=== PATIENT | male | born 1965 | race Caucasian/White ===

== ENCOUNTER → 2017-03-19 | Outpatient (CLI) | payer MEDICAID ==
[~2017-03-19] MED LIST: CHANTIX STARTING1 MG PO; CITALOPRAM10 M1 PO; FLONASE 50 MCG16 GM; KEFLEX 500MG.500 MG PO; METFORMIN 500M500 M1 PO; METOPROLOL SUCC50 M4 PO; MONTELUKAST SOD10 MG PO; NOVOLIN 70/30 710 ML SC; OMEPRAZOLE40 MG PO; PROTONIX 40MG T40 MG PO; SEPTRA DS 800 M1 TAB PO; SUBOXONE1 FI1 SL; TORADOL10 MG PO
--- NOTE | 2017-03-20 12:24 | RADIOLOGY REPORT PS360 ---
PROCEDURE: 2-D M-mode and color Doppler study INDICATIONS FOR THE TEST: Chest pain+ COPD+ Heart Murmur+ Tobacco Smoking+ Palpitations+ Fatigue+ Syncope Edema+ Hypertension+Diabetes Mellitus+ Rheumatic Fever SOB+DAVIES+Obesity+Hyperlipidemia+ Family History HD+ Additional History CHF, CAD PATIENT INFORMATION HEIGHT: 73 WEIGHT: 285 GENDER: Male B/P: 194/120 2-D/M-MODE INTERPRETATION: 2-D MEASUREMENTS OBSERVED VALUES IN CMS Right Ventricular Dimension (RVDd) 2.8 Interventricular Septum (Thickness)(IVsd) 1.0 Left Ventricular Internal Dimensions(LVIDd) 5.6 Left Ventricular Posterior Wall (Thickness)(LVPWd) 1.1 Aortic Root 2.2 Aortic Cusp Separation 2.3 Left Atrial Dimensions (LAD) 4.1 2D 1. Left atrium is mildly enlarged, left ventricle is normal size, there is borderline concentric left ventricular hypertrophy, visually estimated ejection fraction 55% with no obvious regional wall motion abnormality. 2. The right atrium is normal size, right ventricle is mildly enlarged with normal contractility. 3. The aortic, mitral and tricuspid valve is structurally normal. 4. The pulmonic valve is not well visualized. 5. No significant pericardial effusion noted. DOPPLER INTERROGATION: Doppler interrogation of the aortic, mitral and tricuspid valve reveals presence of mild mitral and tricuspid regurgitation, tricuspid regurgitant jet velocity is insufficient for calculation of the right ventricular systolic pressure, grade 1 diastolic dysfunction seen without tissue Doppler evidence of raised left atrial pressure. CONCLUSION: 1. Mildly enlarged left atrium, normal left ventricular size, borderline concentric left ventricular hypertrophy, visually estimated ejection fraction 55% with no obvious regional wall motion abnormality, grade 1 diastolic dysfunction seen without tissue Doppler evidence of raised left atrial pressure. 2. Mild mitral and tricuspid regurgitation. 3. No significant pericardial effusion noted.
== END ==
LOC: RT 12:56
DX: I25.10 Atherosclerotic heart disease of native coronary artery without angina pectoris (principal); I50.9 Heart failure, unspecified; I10 Essential (primary) hypertension

== ENCOUNTER 2017-03-31 21:07 | Inpatient (IN) | payer MEDICAID ==
[~2017-03-31] VITALS: Ht 185.4 cm; Wt 127.9 kg
[2017-03-31 21:15] VITALS: BP 139/66
[2017-03-31] MEDS ORDERED: METOPROLOL25 MG PO (21:25)
[2017-03-31] MEDS ORDERED: NOVOLIN 70/30 710 ML SC ×2 (21:27)
[2017-03-31] MEDS ORDERED: LISINOPRIL40 MG PO (21:28)
[2017-03-31] MEDS ORDERED: ATORVASTATIN CA80 MG PO (21:28)
[2017-03-31] MEDS ORDERED: BRILINTA90 M1 PO (21:29)
[2017-03-31] MEDS ORDERED: FUROSEMIDE 40MG40 M1 PO (21:29)
[2017-03-31] MEDS ORDERED: ADULT LOW DOSE81 MG PO (21:30)
[2017-03-31] MEDS ORDERED: HABITROL21 MG/24 H TD (21:30)
--- OUTSIDE RECORDS SUMMARY | 2017-03-31 21:35 | External Medical Summary Rpt ---
Author Author , Organization [employer] Address Unknown Phone Unavailable Care Team Providers Care Radiologic Technology Instructor Name Role Phone [employer] Unavailable Unavailable INC, [employer] Unavailable Unavailable INC, [employer] MONTERO ALEJANDRE, MONTERO Unavailable Unavailable ALEJANDRE BEINEKE EVELINE, BEINEKE Unavailable Unavailable EVELINE KIERAN, KIERAN Unavailable Unavailable SALLIE ADRIEN, SALLIE Unavailable Unavailable ADRIEN [facility] Unavailable Unavailable SERVICE, [facility] RUBY KEVIN, Unavailable Unavailable RUBY KEVIN FALLS CAN, FALLS CAN Unavailable Unavailable NIKKI MARIBELL, NIKKI Unavailable Unavailable MARIBELL [facility] Unavailable Unavailable INC, [facility] Unavailable Unavailable [facility] P, [facility], Unavailable Unavailable [facility] MAC, MAC Unavailable Unavailable MAC NAN, MAC Unavailable Unavailable NAN [facility] Un[facility] Unavailable [facility], [facility] NURSE Unavailable Unavailable PRACTITIONER GR, [facility] NURSE PRACTITIONER GR [facility] Un[facility] Un[facility], [facility] JIMÉNEZ GILA, JIMÉNEZ GILA Unavailable Unavailable RONALDO, RONALDO Unavailable Unavailable ALINE JR DWI, ALINE Unavailable Unavailable JR DWI GIRMA SHERWIN, GIRMA Unavailable Unavailable SHERWIN GIRMA SHERIWN, GIRMA Unavailable Unavailable [facility] Unavailable Unavailable AMBULANCE SE, [facility] AMBULANCE [facility] Unavailable Unavailable AMBULANCE [facility] AMBUL[facility] Unavailable Unavailable URGENT TREAT, [facility] URGENT [facility] NICKELS JACKLYN, NICKELS Unavailable Unavailable JACKLYN RENUSCH SHERWIN, RENUSCH Unavailable Unavailable SHERWIN [facility] Unavailable Unavailable EMERGENCY PHYS, [facility]ENC[facility]YS [facility] Unavailable Unavailable SOLUTIONS IN, [email or web address] [place] Purpose Continuity of Care Document - 04-26-2014 through 2016 Problems Code Diagnosis DOS Provider Status J208 ACUTE 02-15-2017 [facility] BRONCH[facility]IS [facility] DUE TO SOLUTIONS OTHER SPEC IN ORGANISMS M5126 OTH 02-15-2017 [facility] 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 M545 LOW BACK 02-15-2017 [facility] PAIN HEALTH SOLUTIONS IN R05 COUGH 02-15-2017 [facility] HEALTH SOLUTIONS IN H6503 ACUTE 01-13-2017 [facility] SEROUS HEALTH OTITIS SOLUTIONS MEDIA IN BILATERAL [id number] PAIN IN 01-13-2017 [facility] RIGHT LEG HEALTH SOLUTIONS IN S82990 PAIN IN 01-13-2017 [facility] LEFT LEG HEALTH SOLUTIONS IN L3863PM SPRAIN RT 11-03-2016 [facility] ACROMIOCLAV HEALTH ICULAR SOLUTIONS JOINT IN SUBSQT ENC H02662 PAIN IN 10-28-2016 [facility] UNSPECIFIED HEALTH SHOULDER SOLUTIONS IN E68395G CONTUSION 10-22-2016 [facility] OF RIGHT TECHNOLOGIE SHOULDER S INC INITIAL ENCOUNTER G4700 INSOMNIA 06-10-2016 [facility] 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 [facility] E[facility] SERV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 K25146 PAIN IN LEG 06-10-2016 [facility] UNSPECIFIED F[facility]ATION E33929 ASHD CHEMEHUEVI 04-27-2016 [facility] ART SERV W/OTH FORMS FOUNDATION ANGINA PECTORIS 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-25-2016 [facility] WITH HYPERGLYCEM [place] E119 TYPE 2 04-25-2016 [facility] N[facility]SE DIABETES PRACTITIONE MELLITUS R GR WITHOUT COMPLICATIO NS E639 NUTRITIONAL 04-25-2016 [facility] NURSE DEFICIENCY PRACTITIONE R GR UNSPECIFIED E878 OTHER D/O 04-25-2016 [facility] NURSE OF PRACTITIONE ELECTROLYTE R GR AND FLUID BALANCE NEC I10 ESSENTIAL 04-25-2016 [facility] NURSE PRIMARY PRACTITIONE HYPERTENSIO R GR N I517 CARDIOMEGAL 04-25-2016 [facility] R079 CHEST PAIN 04-25-2016 [facility] UNSPECIFIED COUNTY AMBULANCE SE R112 NAUSEA WITH 04-25-2016 [facility] VOMITING [facility] UNSPECIFIED AMBULANCE SE R531 WEAKNESS 04-25-2016 [facility] AMBULANCE SE R61 GENERALIZED 04-25-2016 [facility] HYPERHIDROS AMBULANCE IS SE R7989 OTHER SPEC 04-25-2016 [facility] ABNORMAL AMBULANCE FINDINGS SERVICE BLOOD CHEMISTRY R9431 ABNORMAL 04-25-2016 [facility] ELECTROCARD SERV IOGRAM FOUNDATION Z452 ENCOUNTER 04-25-2016 [facility] VASCULAR ACCESS DEVICE Z720 TOBACCO USE 04-25-2016 [facility] T14416 CELLULITIS 03-04-[address] [facility] URGENT TREAT N62398 PAIN IN 02-27-2016 [facility] INC M7989 OTHER 02-27-2016 [facility] SPECIFIED MEDICAL SOFT TISSUE IMAGING ASS DISORDERS R600 LOCALIZED 02-27-2016 [facility] 28210 DIAB W/O 07-30-2015 [facility] COMP TYPE [facility] II/UNS NOT URGENT STATED TREAT UNCNTRL 17648 HYPERTROPHY 07-30-2015 [facility] PROSTATE [facility] W/UR OBST & URGENT OTH LUTS TREAT 85340 URINARY 07-30-2015 [facility] FREQUENCY [facility] URGENT TREAT 6829 CELLULITIS 02-04-2015 [facility] AND ABSCESS PHYSICIANS OF GROUP UNSPECIFIED SITE 92636 OTHER 02-04-2015 [facility] FATIGUE INC 7823 EDEMA 02-04-2015 [facility] 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 V770 SCREENING 02-04-2015 [facility] FOR THYROID [facility] DISORDER INC V7791 SCREENING 02-04-2015 [facility] FOR LIPOID PHYSICIANS DISORDERS GROUP V781 SCREENING 02-04-2015 [facility] OTHER&UNSPE PHYSICIANS CIFIED GROUP DEFICIENCY ANEMIA 7295 PAIN IN 12-06-2014 [facility] SOFT MEDICAL TISSUES OF IMAGING ASS LIMB 12598 SWELLING OF 12-06-2014 [facility] LIMB [facility] INC 6826 CELLULITIS 12-05-2014 [facility] AND ABSCESS [facility] EXCEPT FOOT V146 PERSONAL 12-05-2014 [facility] HISTORY OF [facility] ALLERGY TO [facility] P ANALGESIC AGENT 80332 OPEN WOUND 10-24-2014 [facility] COMPL[facility] E8490 PLACE OF 10-24-2014 [facility] OCCURRENCE, [facility] P E8859 FALL FROM 10-24-2014 [facility] OTHER [facility] TRIPPING OR STUMBLING 470 DEVIATED 10-18-2014 [facility] NASAL SERV SEPTUM FOUNDATION 59644 ESOPHAGEAL 10-18-2014 [facility] REFLUX SERV [facility] 24099 LARYNGEAL 09-22-2014 [facility] 30473 ASTHMA, 09-22-2014 [facility] UNSPECIFIED N EMERGENCY , PHYS UNSPECIFIED STATUS 84591 SHORTNESS 09-22-2014 [facility] 02162 OTHER 09-22-2014 [facility] DYSPNEA AND N EMERGENCY PHYS RESPIRATORY ABNORMALITI ES 6824 CELLULITIS& 04-26-2014 GIRMA COURTNEY ABSCESS OF HAND EXCEPT FINGERS&[place] [address] CERTAIN 04-26-2014 GIRMA FRAUSTOS ADVERSE EFFECTS NEC OTHER I21.4 NON-ST ELEVATION (NSTEMI) MYOCARDIAL INFARCTION 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 J45.909 UNSPECIFIED ASTHMA, UNCOMPLICAT ED K21.9 GASTRO-ESOP HAGEAL REFLUX DISEASE WITHOUT ESOPHAGITIS L03.113 CELLULITIS OF RIGHT UPPER LIMB S40.011A CONTUSION OF RIGHT SHOULDER, INITIAL ENCOUNTER T14.8 OTHER INJURY OF UNSPECIFIED BODY REGION Allergies, Adverse Reactions, Alerts Clinical Alert Notifications Alert Diabetes: no A1C in the last 6 months Diabetes: no eye exam in the last 365 days Diabetes: no influenza vaccine in the last 365 days Diabetes: no lipid panel in the last 365 days Diabetes: no urine protein screening in the last 365 days Medications Na ND Rx Da Fi Fi Am Da Di Ph RX Ph St me C No te ll ll ou ys ag ar # ys at rm s nt no ma ic us Or Da si cy ia de te s n re d ET 51 04 05 60 30 00 SO Ac OD 67 -1 -1 .0 00 PE ti OL 24 8- 2- 00 00 RS ve AC 01 20 20 56 80 17 17 17 FA 40 1 42 KS [address] TA UG BL ET FU 00 04 05 30 30 00 SO Ac RO 37 -2 -1 .0 00 PE ti SE 80 1- 2- 00 00 RS ve KS 20 20 20 54 DE 81 17 17 69 FA 0 98 KS [address] UG TA BL ET ME 00 04 05 30 30 00 SO Ac TO 37 -2 -1 .0 00 PE ti [place] 80 0- 2- 00 00 RS ve OL 01 20 20 53 OL 80 17 17 88 FA 5 16 KS TA LY RT RA DR TE UG 25 MG TA B BU 00 04 05 30 15 00 RO Ac [place] 05 -1 -0 .0 00 SS ti EN 40 2- 5- 00 01 ve OR [address] PH 91 17 17 87 UG IN 3 54 S -N AL OX ON 8- 2 MG SL ME 23 03 05 60 30 00 SO Ac TF 15 -2 -0 .0 00 PE ti OR 50 7- 5- 00 00 RS ve KS 10 20 20 54 N 21 17 17 66 FA HC 0 47 KS L LY [address] MG UG TA BL ET AT 00 04 05 30 30 00 SO Ac OR 37 -1 -0 .0 00 PE ti VA 83 4- 5- [address] 95 20 20 53 AT 30 17 17 88 FA IN 5 [address] MG UG TA BL ET LI 68 04 05 30 30 00 SO Ac SI 18 -1 -0 .0 00 PE ti NO 00 4- 5- 00 00 RS ve [place] 51 20 20 53 IL 70 17 17 88 FA 3 18 KS [address] UG TA BL ET UL 08 04 05 60 30 00 SO Ac TR 88 -1 -0 .0 00 PE ti A 16 0- 5- 00 00 RS ve CO 09 20 20 53 MF 00 17 17 88 FA OR 4 21 KS T LY 0. 5 DR ML UG SY RI NG E BR 00 03 05 60 30 00 SO Ac IL 18 -2 -0 .0 00 PE ti IN 60 7- 5- 00 00 RS ve TA 77 20 20 53 76 17 17 88 FA 90 0 [address] TA UG BL ET NO 00 04 05 20 30 00 SO Ac VO 16 -0 -0 .0 00 PE ti LI 91 8- 5- 00 00 RS ve N 83 20 20 53 70 71 17 17 88 FA -3 1 20 KS [address] UN UG IT /M L AL AZ 00 04 05 6. 5 00 SO Ac IT 78 -0 -0 00 00 PE ti HR 11 3- 5- 0 00 RS ve OM 49 20 20 56 YC 66 17 17 04 FA IN 8 75 KS LY [address] MG UG TA BL ET [place] 00 04 05 12 5 00 SO Ac OM 60 -0 -0 0. 00 PE ti ET 31 3- 5- 00 00 RS ve GARCIA 58 20 20 0 56 ZI 65 17 17 04 FA NE 8 77 KS -D LY M SY DR RU UG P ME 00 03 04 30 30 00 SO Ac TO 37 -2 -1 .0 00 PE ti [place] 80 0- 4- 00 00 RS ve OL 01 20 20 53 OL 80 17 17 88 FA 5 16 KS TA LY RT RA DR TE UG 25 MG TA B BU 50 03 04 15 7 00 RO Ac KY 38 -2 -1 .0 00 SS ti EN 30 3- 4- 00 01 ve OR [address] PH 79 17 17 61 UG IN 3 02 S -N AL OX ON 8- 2 MG SL BU 00 03 04 15 7 00 RO Ac [place] 05 -1 -0 .0 00 SS ti EN 40 6- 7- 00 01 ve OR [address] PH 91 17 17 52 UG IN 3 11 S -N AL OX ON 8- 2 MG SL FU 00 03 04 30 30 00 SO Ac RO 37 -1 -0 .0 00 PE ti SE 80 5- 7- 00 00 RS ve KS 20 20 20 54 DE 81 17 17 69 FA 0 98 KS [address] UG TA BL ET AT 00 03 04 30 30 00 SO Ac OR 37 -1 -0 .0 00 PE ti VA 83 3- 7- [address] 95 20 20 53 AT 30 17 17 88 FA IN 5 [address] MG UG TA BL ET LI 68 03 04 30 30 00 SO Ac SI 18 -1 -0 .0 00 PE ti NO 00 3- 7- 00 00 RS ve KY 51 20 20 53 IL 70 17 17 88 FA 3 18 KS [address] UG TA BL ET ET 51 03 04 60 30 00 SO Ac OD 67 -1 -0 .0 00 PE ti OL 24 4- 7- 00 00 RS ve AC 01 20 20 55 80 17 17 87 FA 40 1 19 KS [address] TA UG BL ET CY 00 03 04 30 30 00 SO Ac CL 60 -1 -0 .0 00 PE ti OB 33 4- 7- 00 00 RS ve EN 07 20 20 55 ZA 82 17 17 87 FA KY 1 20 KS IN LY E 5 DR MG UG TA BL ET BU 50 03 03 15 7 00 RO Ac KY 38 -0 -3 .0 00 SS ti EN 30 9- 1- 00 01 ve OR [address] PH 79 17 17 42 UG IN 3 62 S -N AL OX ON 8- 2 MG SL UL 57 03 03 60 30 00 SO Ac TI 51 -0 -3 .0 00 PE ti CA 50 8- 1- 00 00 RS ve RE 08 20 20 53 25 17 17 88 FA SY 8 21 KS RI LY N 0. DR 5 UG ML 28 GX 1/ 2" BU 00 03 03 15 7 00 RO Ac [place] 05 -0 -2 .0 00 SS ti EN 40 2- 4- 00 01 ve OR [address] PH 91 17 17 33 UG IN 3 57 S -N AL OX ON 8- 2 MG SL CE 16 03 03 14 14 00 SO Ac TI 57 -0 -2 .0 00 PE ti RI 10 1- 4- 00 00 RS ve ZI 40 20 20 55 NE 25 17 17 76 FA 0 55 KS HC LY L 10 DR UG MG TA BL ET TI 57 03 03 30 30 00 SO Ac ZA 66 -0 -2 .0 00 PE ti NI 40 1- 4- 00 00 RS ve DI 50 20 20 55 NE 31 17 17 76 FA 8 56 KS HC LY L 4 DR MG UG TA BL ET NO 00 03 03 20 30 00 SO Ac VO 16 -0 -2 .0 00 PE ti LI 91 1- 4- 00 00 RS ve N 83 20 20 53 70 71 17 17 88 FA -3 1 20 KS [address] UN UG IT /M L AL FL 00 03 03 16 30 00 SO Ac UT 05 -0 -2 .0 00 PE ti IC 43 1- 4- 00 00 RS ve 27 20 20 55 ON 09 17 17 76 FA E 9 53 [place] LY OP DR 50 UG MC G SP RA Y DI 61 03 03 60 30 00 SO Ac CL 44 -0 -2 .0 00 PE ti OF 20 1- 4- 00 00 RS ve EN 10 20 20 55 AC 31 17 17 76 FA 0 54 KS SO LY D DR DR UG 75 MG TA B ME 23 02 03 60 30 00 SO Ac TF 15 -1 -1 .0 00 PE ti OR 50 4- 0- 00 00 RS ve KS 10 20 20 54 N 21 17 17 66 FA HC 0 47 KS L LY [address] MG UG TA BL ET MO 08 02 03 60 30 00 SO Ac NO 88 -1 -1 .0 00 PE ti JE 16 0- 0- [address] 20 20 53 23 17 17 88 FA SY 1 21 KS RI LY NG E DR 0. UG 5 ML CI 00 02 03 30 30 00 SO Ac TA 37 -1 -1 .0 00 PE ti LO 86 0- 0- 00 00 RS ve [place] 23 20 20 54 AM 20 17 17 22 FA 5 33 KS HB LY R 20 DR UG MG TA BL ET FU 00 02 03 30 30 00 SO Ac RO 37 -1 -1 .0 00 PE ti SE 80 0- 0- 00 00 RS ve KS 20 20 20 54 DE 81 17 17 69 FA 0 98 KS [address] UG TA BL ET LI 68 02 03 30 30 00 SO Ac SI 18 -1 -1 .0 00 PE ti NO 00 0- 0- 00 00 RS ve KY 51 20 20 53 IL 70 17 17 88 FA 3 18 KS [address] UG TA BL ET BR 00 02 03 60 30 00 SO Ac IL 18 -1 -1 .0 00 PE ti IN 60 0- 0- 00 00 RS ve TA 77 20 20 53 76 17 17 88 FA 90 0 [address] TA UG BL ET AT 00 02 03 30 30 00 SO Ac OR 37 -1 -1 .0 00 PE ti VA 83 0- 0- [address] 95 20 20 53 AT 30 17 17 88 FA IN 5 [address] [place] [address] MG UG TA BL ET ME 00 03 30 30 00 SO Ac TO 37 -1 -1 .0 00 PE ti [place] 80 0- 0- 00 00 RS ve OL 01 20 20 53 OL 80 17 17 88 FA 5 16 KS TA LY RT RA DR TE UG 25 MG TA B FU 00 02 30 30 00 SO Ac RO 37 -1 -0 .0 00 PE ti SE 80 3- 3- 00 00 RS ve KS 20 20 20 54 DE 81 17 17 69 FA 0 98 KS [address] UG TA BL ET NO 00 02 20 30 00 SO Ac VO 16 -1 -0 .0 00 PE ti LI 91 3- 3- 00 00 RS ve N 83 20 20 53 70 71 17 17 88 FA -3 1 20 KS [address] UN UG IT /M L AL MO 08 02 60 30 00 SO Ac NO 88 -1 -0 .0 00 PE ti JE 16 3- 3- [address] 20 20 53 23 17 17 88 FA SY 1 21 KS RI LY NG E DR 0. UG 5 ML AT 00 02 30 30 00 SO Ac OR 37 -1 -0 .0 00 PE ti VA 83 2- 3- [address] 95 20 20 53 AT 30 17 17 88 FA IN 5 [address] [place] [address] MG UG TA BL ET LI 68 02 30 30 00 SO Ac SI 18 -1 -0 .0 00 PE ti NO 00 2- 3- 00 00 RS ve KY 51 20 20 53 IL 70 17 17 88 FA 3 18 KS [address] UG TA BL ET ME 00 02 30 30 00 SO Ac TO 37 -1 -0 .0 00 PE ti [place] 80 3- 3- 00 00 RS ve OL 01 20 20 53 OL 80 17 17 88 FA 5 16 KS TA LY RT RA DR TE UG 25 MG TA B BR 00 12 60 30 00 SO Ac IL 18 -2 -2 .0 00 PE ti IN 60 9- 0- 00 00 RS ve TA 77 20 20 53 76 16 17 88 FA 90 0 [address] TA UG BL ET ME 23 12 01 60 30 00 SO Ac TF 15 -2 -2 .0 00 PE ti OR 50 9- 0- 00 00 RS ve KS 10 20 20 54 N 21 16 17 66 FA HC 0 47 KS L LY [address] MG UG TA BL ET TR 57 12 01 60 15 00 SO Ac AM 66 -1 -0 .0 00 PE ti AD 40 4- 9- 00 00 RS ve OL 37 20 20 55 71 16 17 10 FA HC 8 21 KS L LY 50 DR MG UG TA BL ET DI 16 12 01 60 30 00 SO Ac CL 57 -1 -0 .0 00 PE ti OF 10 4- 9- 00 00 RS ve EN 20 20 20 55 AC 11 16 17 10 FA 1 28 KS SO LY D EC DR UG 75 MG TA B LI 57 12 01 30 30 00 SO Ac SI 23 -1 -0 .0 00 PE ti NO 70 2- 9- 00 00 RS ve [place] 05 20 20 53 IL 79 16 17 88 FA 9 18 KS [address] UG TA BL ET NO 00 12 20 30 00 SO Ac VO 16 -1 -0 .0 00 PE ti LI 91 2- 9- 00 00 RS ve N 83 20 20 53 70 71 16 17 88 FA -3 1 20 KS [address] UN UG IT /M L AL MO 08 12 01 60 30 00 SO Ac NO 88 -1 -0 .0 00 PE ti JE 16 2- 9- [address] 20 20 53 23 16 17 88 FA SY 1 21 KS RI LY NG E DR 0. UG 5 ML ME 00 12 30 30 00 SO Ac TO 37 -1 -0 .0 00 PE ti [place] 80 2- 9- 00 00 RS ve OL 01 20 20 53 OL 80 16 17 88 FA 5 16 KS TA LY RT RA DR TE UG 25 MG TA B FU 00 12 30 30 00 SO Ac RO 37 -1 -0 .0 00 PE ti SE 80 2- 9- 00 00 RS ve KS 20 20 20 54 DE 81 16 17 69 FA 0 98 KS [address] UG TA BL ET CI 00 12 30 30 00 SO Ac TA 37 -1 -0 .0 00 PE ti LO 86 2- 9- 00 00 RS ve [place] 23 20 20 54 AM 20 16 17 22 FA 5 33 KS HB LY R 20 DR UG MG TA BL ET AT 00 12 01 30 30 00 SO Ac OR 37 -1 -0 .0 00 PE ti VA 83 2- 9- [address] 95 20 20 53 AT 30 16 17 88 FA IN 5 [address] [place] [address] MG UG TA BL ET Immunization Name Date Route CVX Reacti Commen Provid Is Given on t er Refuse d TDAP CARRANZA No VACCIN 2013 ON MEM E 7 HOSP YRS/> INC IM Procedures Procedure DOS Code Location Performer Comment SHOULDER L3650 [facility] 6 TECHNOLOG TECHNOLOG FIG 8 IES INC IES INC ABDUCT RESTRAINE R PREFAB ECHO 96422 [place] JIMÉNEZ GILA TTHRC R-T 6 MEDICAL 2D SERV W/WOM-MOD FOUNDATIO E COMPL N SPEC&COLR D CATH 52720 [place] RONALDO PLACEMENT 6 MEDICAL & NJX SERV CORONARY FOUNDATIO [place] ANG[place] IM[place] [address] [facility] TROPONIN 6 [facility] QUANTITAT INC INC SANIA CREATINE 55919 [facility] KINASE 6 [facility] [place] [address] [facility] LIPASE 6 [facility] INC INC THER 58786 [facility] PROPH/DX 6 [facility] NJX IV INC INC PUSH SINGLE/1S T SBST/DRUG ECG 17304 [facility] ROUTINE 6 [facility] ECG INC INC W/LEAST 12 LDS TRCG ONLY W/O I&R BLOOD 02303 [facility] COUNT 6 [facility] COMPLETE INC INC AUTO&AUTO DIFRNTL WBC THERAPEUT 29636 [facility] IC 6 [facility] INJECTION INC INC IV PUSH EACH NEW DRUG INITIAL 10306 [facility] 6 NURSE CARE/DAY PRACTITIO 50 NER GR MINUTES GROUND A0425 [facility] [address] [place] [address] PER AMBULANCE AMBULANCE STATUTE SE SE MILE RADIOLOGI 28920 [facility] C 6 [facility] EXAMINATI INC INC ON CHEST SINGLE VIEW FRONTAL CREATINE 82975 [facility] KINASE MB 6 [facility] FRACTION INC INC ONLY CRITICAL 53734 [facility] 6 PHYSICIAN SHERWIN ILL/INJUR S, [facility] ED PATIENT INIT 30-74 MIN AMB A0427 [facility]ICE 6 [facility] AMBULANCE AMBULANCE EMERGENCY SE SE TRANSPORT LEVEL 1 CRITICAL 24009 [facility] 6 PHYSICIAN SHERWIN ILL/INJUR S, [facility] ED PATIENT ADDL 30 MIN COMPREHEN 99134 [facility] SIVE 6 [facility] METABOLIC INC INC PANEL INJECTION J2405 [facility] 6 [facility] ONDANSETR INC INC ON HCL PER 1 MG ECG 10659 [facility] MIRELES JR ROUTINE 6 [facility] W/LEAST P 12 LDS I&R ONLY FIBRIN 45978 [facility] DGRADJ 6 [facility] PRODUCTS INC INC D-DIMER QUAL/SEMI ROLANDO INSJ 00222 [facility] 6 PHYSICIAN SHERWIN LED S, [facility] CENTRAL VENOUS CATH AGE 5 YR/> DUP-SCAN 07244 [facility] XTR VEINS 6 [facility] INC INC UNILATERA L/LIMITED STUDY COLLECTIO 59024 [facility] N VENOUS 5 [facility] BLOOD URGENT VENIPUNCT TREAT URE BLOOD 20449 [facility] OCCULT 5 [facility] PEROXIDAS URGENT E ACTV TREAT QUAL FECES 1 DETER LIPID 39463 [facility] PANEL 5 [facility]OS[facility] INC INC 25 91351 [facility] HYDROXY 5 [facility] INCLUDES INC INC FRACTIONS IF PERFORMED COLLECTIO 04523 [facility] NIKKI N VENOUS 5 PHYSICIAN MARIBELL BLOOD S GROUP VENIPUNCT URE BLOOD 85382 [facility] COUNT 5 [facility] MEM HOSP COMPLETE INC INC AUTO&[place] [address] [facility] FREE 5 [facility] [place] [address] [facility] THYROID 5 [facility] STIMULATI INC INC NG HORMONE TSH COMPREHEN 93301 [facility] SIVE 5 [facility] H[facility] METABOLIC INC INC PANEL PROSTATE G0103 [facility] CANCER 5 [facility] SCREENING INC INC ; PSA TEST DUP-SCAN 98038 [facility] XTR VEINS 5 [facility] INC INC UNILATERA L/LIMITED STUDY THERAPEUT 32709 [facility] CARRANZAON IC 5 [facility] H[facility] PROPHYLAC INC INC TIC/DX INJECTION SUBQ/IM FIBRIN 52821 [facility] DGRADJ 5 [facility] PRODUCTS INC INC D-DIMER QUAL/SEMI ROLANDO PROTHROMB 69650 [facility] IN TIME 5 [facility] INC INC SEDIMENTA 99322 [facility] TION RATE 5 [facility] RBC INC INC NON-AUTOM ATED THROMBOPL 76634 [facility] ASTIN 5 [facility] TIME INC INC PARTIAL PLASMA/WH OLE BLOOD COMPREHEN 92773 [facility] SIVE 5 [facility] METABOLIC INC INC PANEL COLLECTIO 04929 [facility] N VENOUS 5 [facility] BLOOD INC INC VENIPUNCT URE BLOOD 23927 [facility] COUNT 5 [facility] COMPLETE INC INC AUTO&AUTO DIFRNTL WBC THERAPEUT 35883 [facility] IC 4 [facility] INJECTION INC INC IV PUSH EACH NEW DRUG BLOOD 33468 [facility] COUNT 4 [facility] COMPLETE INC INC AUTO&AUTO DIFRNTL WBC IM ADM 24504 [facility] PRQ ID 4 [facility] SUBQ/IM INC INC NJXS 1 VACCINE TDAP 23771 [facility] VACCINE 7 4 [facility] YRS/> IM INC INC COMPREHEN 11667 [facility] SIVE 4 [facility] METABOLIC INC INC PANEL RADEX 58379 [place] [facility] FOR[facility] 2 4 [place] [address] [facility] INFUSION 4 [facility] THERAPY/P INC INC ROPHYLAXI S /DX 1ST TO 1 HR CULTURE 77054 [facility] BACTERIAL 4 [facility] BLOOD INC INC AEROBIC W/ID ISOLATES LARYNGOSC 25713 [place] [facility]TER[place] OPY 4 MEDICAL ALEJANDRE FLEXIBLE SERV DIAGNOSTI FOUNDATIO C N ECG 51178 [facility] ROUTINE 4 MACY MARIBELL ECG EMERGENCY W/LEAST PHYS 12 LDS I&R ONLY RADIOLOGI 08432 [facility] EVELINE CHEST 2 IMAGING VIEWS ASS FRONTAL&L ATERAL RADEX 40605 [place] NICKELS HAND 4 MEDICAL JACKLYN MINIMUM 3 SERV VIEWS FOUNDATIO Encounters Encounter Start End Date Code Location Performer Type Date OFFICE 08317 [facility] OUT[facility] 7 7 [facility] 25 IN MINUTES OFFICE 61186 [facility] OUTPATIEN 7 7 [facility] T V[facility]UT[facility] 15 IN MINUTES OFFICE 37925 [facility] OUTPATIEN 7 7 [facility] T VISIT SOLUTIONS 25 IN MINUTES OFFICE 37456 [facility] OUTPATIEN 6 6 HEALTH T VISIT SOLUTIONS 15 IN MINUTES OFFICE 89751 [facility] OUTPATIEN 6 6 HEALTH T VISIT SOLUTIONS 15 IN MINUTES OFFICE 79632 CLARISSA KIERAN OUTPATIEN 6 6 MEDICAL T VISIT SERV 15 FOUNDATIO MINUTES [facility] 6 6 [facility] OUTPATIEN INC T EMERGENCY 99287 CLARISSA SALLIE 6 6 MEDICAL ADRIEN DEPARTMEN SERV T VISIT FOUNDATIO HIGH/URGE N NT SEVERITY EMERGENCY 01228 [facility] DEPT 6 6 [facility] VISIT INC HIGH SEVERITY& THREAT FUNCJ OFFICE 02542 [facility] TREAT MINUT[facility] 6 6 [facility] OUTPATI[facility] INC T OFFICE 21137 [facility] 6 [facility] TREAT MINUTES [facility] - 5 5 [facility] INC T OFFICE 45007 [facility] 5 [facility] TREAT MINUTES [facility] - 5 5 [facility] OUTPATI[facility] INC T OFFICE 95362 [facility] NIKKI OUTPATIEN 5 5 PHYSICIAN MARIBELL T VISIT S GROUP 25 MINUTES OFFICE 24083 [facility] OUTPATIEN 5 5 PHYSICIAN MARIBELL T VISIT S GROUP 15 MINUTES [facility]OSPITAL [facility] - 5 5 [facility] OUTPATIEN INC T EMERGENCY 05086 [facility] JORDAN 5 5 [facility] T VISIT P MODERATE SEVERITY HOSPITAL [facility] - 5 5 [facility]IEN INC T EMERGENCY 54065 R[facility] 5 5 [facility] T VISIT LOW/MODER SEVERITY HOSPITAL [facility] - 4 4 [facility] OUTPATIEN INC T EMERGENCY 35296 R[facility] 4 4 [facility] MODERATE SEVERITY OFFICE 67916 CLARISSA MONTERO OUTPATIEN 4 4 MEDICAL ALEJANDRE T NEW 45 SERV MINUTES FOUNDATIO N EMERGENCY 42607 [facility] DEPT 4 4 MACY MARIBELL VISIT EMERGENCY HIGH PHYS SEVERITY& THREAT FUN OFFICE 14015 GIRMA RAYO OUTPATIEN 4 4 SHERWIN COURTNEY T NEW 30 MINUTES
--- OUTSIDE RECORDS SUMMARY | 2017-03-31 21:35 | External Medical Summary Rpt ---
Author Author , Organization [employer] Address Unknown Phone Unavailable Care Team Providers Care Stem Shaper Name Role Phone [employer] Unavailable Unavailable INC, [employer] Unavailable Unavailable INC, [employer] MONTERO ALEJANDRE, MONTERO Unavailable Unavailable ALEJANDRE BEINEKE EVELINE, BEINEKE Unavailable Unavailable EVELINE KIERAN, KIERAN Unavailable Unavailable SALLIE ADRIEN, SALLIE Unavailable Unavailable ADRIEN [facility] AMBULANCE Unavailable Unavailable SERVICE, [facility] AMBULANCE SERVICE RUBY KEVIN, Unavailable Unavailable RUBY KEVIN FALLS CAN, FALLS CAN Unavailable Unavailable NIKKI MARIBELL, NIKKI Unavailable Unavailable MARIBELL [facility] Unavailable Unavailable INC, [facility] Unavailable Unavailable HOSPITAL P, [facility], Unavailable Unavailable [facility] MAC, MAC Unavailable Unavailable MAC NAN, [facility] Unavailable Unavailable NAN [facility] Un[facility] Unavailable [facility], [facility] NURSE Unavailable Unavailable PRACTITIONER GR, [facility] NURSE PRACTITIONER GR [facility] Un[facility], [facility] JIMÉNEZ GILA, JIMÉNEZ GILA Unavailable Unavailable RONALDO, RONALDO Unavailable Unavailable ALINE JR DWI, ALINE Unavailable Unavailable JR DWI GIRMA SHERWIN, GIRMA Unavailable Unavailable SHERWIN GIRMA SHERWIN, GIRMA Unavailable Unavailable [facility] Unavailable Unavailable AMBULANCE SE, [facility] Unavailable Unavailable AMBULANCE [facility] Unavailable Unavailable URGENT TREAT, [facility] NICKELS JACKLYN, NICKELS Unavailable Unavailable JACKLYN RENUSCH SHERWIN, RENUSCH Unavailable Unavailable SHERWIN [facility] Unavailable Unavailable EMERGENCY PHYS, [facility] Unavailable Unavailable SOLUTIONS IN, [employer] IN Purpose Continuity of Care Document - [...] SEROUS HEALTH OTITIS SOLUTIONS MEDIA IN BILATERAL [id number] PAIN IN 01-13-2017 [facility] SOLUT[facility] IN [id number] PAIN IN 01-13-2017 [facility] LEFT LEG HEALTH SOLUTIONS IN [id number] SPRAIN RT 11-03-2016 [facility] ACROMIOCLAV HEALTH ICULAR SOLUTIONS JOINT IN SUBSQT ENC Q93924 PAIN IN 10-28-2016 [facility] UNSPECIFIED HEALTH SHOULDER SOLUTIONS IN [id number] CONTUSION 10-22-2016 [facility] OF RIGHT TECHNOLOGIE SHOULDER S INC INITIAL ENCOUNTER G4700 INSOMNIA 06-10-2016 [place] [facility] 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 [place] [facility]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 C31970 PAIN IN LEG 06-10-2016 [facility] U89249 [facility] 04-27-2016 [place] [facility] W/OTH FORMS [facility] ANGINA PECTORIS 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-25-2016 [facility] P WITH HYPERGLYCEM [place] E119 TYPE 2 04-25-2016 [facility] NURSE DIABETES PRACTITIONE MELLITUS R GR WITHOUT COMPLICATIO NS E639 NUTRITIONAL 04-25-2016 [facility] NURSE DEFICIENCY PRACTITIONE R GR UNSPECIFIED E878 OTHER D/O 04-25-2016 [facility] NURSE OF PRACTITIONE ELECTROLYTE R GR AND FLUID BALANCE NEC I10 ESSENTIAL 04-25-2016 [facility] NURSE PRIMARY PRACTITIONE HYPERTENSIO R GR N I517 CARDIOMEGAL 04-25-2016 [facility] R079 CHEST PAIN 04-25-2016 [facility] UNSPECIFIED COUNTY AMBULANCE SE R112 NAUSEA WITH 04-25-2016 [facility] VOMITING [facility] UNSPECIFIED AMBULANCE SE R531 WEAKNESS 04-25-2016 [facility] SE R61 GENERALIZED 04-25-2016 [facility] HYPERHIDROS AMBULANCE IS SE R7989 OTHER SPEC 04-25-2016 [facility] ABNORMAL AMBULANCE FINDINGS SERVICE BLOOD CHEMISTRY R9431 ABNORMAL 04-25-2016 [place] [facility] IOGRAM [facility] Z452 ENCOUNTER 04-25-2016 [facility] VASCULAR ACCESS DEVICE Z720 TOBACCO USE 04-25-2016 [facility] P U78637 CELLULITIS 03-04-2016 [facility] LOWER LIMB URGENT TREAT E58436 PAIN IN 02-27-2016 [facility] LEFT THIGH [facility] INC M7989 OTHER 02-27-2016 [place] SPECIFIED [facility] SOFT TISSUE IMAGING ASS DISORDERS R600 LOCALIZED 02-27-2016 [place] [facility] 74378 DIAB W/O 07-30-2015 [facility] COMP TYPE [facility] II/UNS NOT URGENT STATED TREAT UNCNTRL 78999 HYPERTROPHY 07-30-2015 [facility] PR[address] [facility] W/UR OBST & URGENT OTH LUTS TREAT 68526 URINARY 07-30-2015 [facility] FREQUENCY [facility] URGENT TREAT 6829 CELLULITIS 02-04-2015 [facility] AND ABSCESS PHYSICIANS OF GROUP UNSPECIFIED SITE 10582 OTHER 02-04-2015 [facility] FATIGUE INC 7823 EDEMA 02-04-2015 [facility] 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 V770 SCREENING 02-04-2015 [facility] DISORDER INC V7791 SCREENING 02-04-2015 [facility] FOR LIPOID PHYSICIANS DISORDERS GROUP V781 SCREENING 02-04-2015 [facility] OTHER&UNSPE PHYSICIANS CIFIED GROUP DEFICIENCY ANEMIA 7295 PAIN IN 12-06-2014 [place] SOFT MEDICAL TISSUES OF IMAGING ASS LIMB 00433 SWELLING OF 12-06-2014 [facility] INC 6826 CELLULITIS 12-05-2014 [facility] AND [facility]ESS [facility] P EXCEPT FOOT V146 PERSONAL 12-05-2014 [facility] HISTORY OF [facility] ANALGESIC AGENT 16294 OPEN WOUND 10-24-2014 [facility] COM[facility] E8490 PLACE OF 10-24-2014 [facility] OCCURRENCE, [facility] P E8859 FALL FROM 10-24-2014 [facility] OTHER [facility] SL[facility]VA [facility] P TRIPPING OR STUMBLING 470 DEVIATED 10-18-2014 [place] [facility]PTUM [facility] 99779 ESOPHAGEAL 10-18-2014 [place] [facility] 12379 LARYNGEAL 09-22-2014 [facility] PHYS 07634 ASTHMA, 09-22-2014 [facility] U[facility]PEC[facility]GENC[facility] , PHYS UNSPECIFIED STATUS 47051 SHORTNESS 09-22-2014 [facility] 89060 OTHER 09-22-2014 [facility] DYSPNEA AND N EMERGENCY PHYS RESPIRATORY ABNORMALITI ES 6824 CELLULITIS& 04-26-2014 GIRMA COURTNEY ABSCESS OF HAND EXCEPT FINGERS&[place] [address] CERTAIN 04-26-2014 GIRMA FRAUSTOS ADVERSE EFFECTS NEC [...] 17 17 17 FA 40 1 42 OR [address] TA UG BL ET FU 00 04 05 30 30 00 SO Ac RO 37 -2 -1 .0 00 PE ti SE 80 1- 2- 00 00 RS ve OR 20 20 20 54 DE 81 17 17 69 FA 0 98 OR [address] UG TA BL ET ME 00 04 05 30 30 00 SO Ac TO 37 -2 -1 .0 00 PE ti PA 80 0- 2- 00 00 RS ve OL 01 20 20 53 OL 80 17 17 88 FA 5 16 OR TA LY RT RA DR TE UG 25 MG TA B BU 00 04 05 30 15 00 RO Ac PA 05 -1 -0 .0 00 SS ti EN 40 2- 5- 00 01 ve OR [address] PH 91 17 17 87 UG IN 3 54 S -N AL OX ON 8- 2 MG SL ME 23 03 05 60 30 00 SO Ac TF 15 -2 -0 .0 00 PE ti OR 50 7- 5- 00 00 RS ve OR 10 20 20 54 N 21 17 17 66 FA HC 0 47 OR L LY [address] MG UG TA BL ET AT 00 04 05 30 30 00 SO Ac OR 37 -1 -0 .0 00 PE ti VA 83 4- 5- [address] 95 20 20 53 AT 30 17 17 88 FA IN [address] MG UG TA BL ET LI 68 04 05 30 30 00 SO Ac SI 18 -1 -0 .0 00 PE ti NO 00 4- 5- 00 00 RS ve PA 51 20 20 53 IL 70 17 17 88 FA 3 18 OR [address] UG TA BL ET UL 08 04 05 60 30 00 SO Ac TR 88 -1 -0 .0 00 PE ti A 16 0- 5- 00 00 RS ve CO 09 20 20 53 MF 00 17 17 88 FA OR 4 21 OR T LY 0. 5 DR ML UG SY RI NG E BR 00 03 05 60 30 00 SO Ac IL 18 -2 -0 .0 00 PE ti IN 60 7- 5- 00 00 RS ve TA 77 20 20 53 76 17 17 88 FA 90 0 [address] TA UG BL ET NO 00 04 05 20 30 00 SO Ac VO 16 -0 -0 .0 00 PE ti LI 91 8- 5- 00 00 RS ve N 83 20 20 53 70 71 17 17 88 FA -3 1 20 OR [address] UN UG IT /M L AL AZ 00 04 05 6. 5 00 SO Ac IT 78 -0 -0 00 00 PE ti HR 11 3- 5- 0 00 RS ve OM 49 20 20 56 YC 66 17 17 04 FA IN 8 75 OR LY [address] MG UG TA BL ET PA 00 04 05 12 5 00 SO Ac OM 60 -0 -0 0. 00 PE ti ET 31 3- 5- 00 00 RS ve GARCIA 58 20 20 0 56 ZI 65 17 17 04 FA NE 8 77 OR -D LY M SY DR RU UG P ME 00 03 04 30 30 00 SO Ac TO 37 -2 -1 .0 00 PE ti PA 80 0- 4- 00 00 RS ve OL 01 20 20 53 OL 80 17 17 88 FA 5 16 OR TA LY RT RA DR TE UG 25 MG TA B BU 50 03 04 15 7 00 RO Ac PA 38 -2 -1 .0 00 SS ti EN 30 3- 4- 00 01 ve OR [address] PH 79 17 17 61 UG IN 3 02 S -N AL OX ON 8- 2 MG SL BU 00 03 04 15 7 00 RO Ac PA 05 -1 -0 .0 00 SS ti EN 40 6- 7- 00 01 ve OR [address] PH 91 17 17 52 UG IN 3 11 S -N AL OX ON 8- 2 MG SL FU 00 03 04 30 30 00 SO Ac RO 37 -1 -0 .0 00 PE ti SE 80 5- 7- 00 00 RS ve OR 20 20 20 54 DE 81 17 17 69 FA 0 98 OR [address] UG TA BL ET AT 00 03 04 30 30 00 SO Ac OR 37 -1 -0 .0 00 PE ti VA 83 3- 7- [address] 95 20 20 53 AT 30 17 17 88 FA IN 5 [address] MG UG TA BL ET LI 68 03 04 30 30 00 SO Ac SI 18 -1 -0 .0 00 PE ti NO 00 3- 7- 00 00 RS ve PA 51 20 20 53 IL 70 17 17 88 FA 3 18 OR [address] UG TA BL ET ET 51 03 04 60 30 00 SO Ac OD 67 -1 -0 .0 00 PE ti OL 24 4- 7- 00 00 RS ve AC 01 20 20 55 80 17 17 87 FA 40 1 19 OR [address] TA UG BL ET CY 00 03 04 30 30 00 SO Ac CL 60 -1 -0 .0 00 PE ti OB 33 4- 7- 00 00 RS ve EN 07 20 20 55 ZA 82 17 17 87 FA PA 1 20 OR IN LY E 5 DR MG UG TA BL ET BU 50 03 03 15 7 00 RO Ac PA 38 -0 -3 .0 00 SS ti [...] 17 17 88 FA SY 8 21 OR RI LY N 0. DR 5 UG ML 28 GX 1/ 2" BU 00 03 03 15 7 00 RO Ac PA 05 -0 -2 .0 00 SS ti [...] 25 17 17 76 FA 0 55 OR HC LY L 10 DR UG MG TA BL ET TI 57 03 03 30 30 00 SO Ac ZA 66 -0 -2 .0 00 PE ti NI 40 1- 4- 00 00 RS ve DI 50 20 20 55 NE 31 17 17 76 FA 8 56 OR HC LY L 4 DR MG UG TA BL ET NO 00 03 03 20 30 00 SO Ac VO 16 -0 -2 .0 00 PE ti LI 91 1- 4- 00 00 RS ve N 83 20 20 53 70 71 17 17 88 FA -3 1 20 OR [address] UN UG IT /M L AL FL 00 03 03 16 30 00 SO Ac UT 05 -0 -2 .0 00 PE ti IC 43 1- 4- 00 00 RS ve 27 20 20 55 ON 09 17 17 76 FA E 9 53 OR PA LY OP DR 50 UG MC G SP RA Y DI 61 03 03 60 30 00 SO Ac CL 44 -0 -2 .0 00 PE ti OF 20 1- 4- 00 00 RS ve EN 10 20 20 55 AC 31 17 17 76 FA 0 54 OR SO LY D DR DR UG 75 MG TA B ME 23 02 03 60 30 00 SO Ac TF 15 -1 -1 .0 00 PE ti OR 50 4- 0- 00 00 RS ve OR 10 20 20 54 N 21 17 17 66 FA HC 0 47 OR L LY [address] MG UG TA BL ET MO 08 02 03 60 30 00 SO Ac NO 88 -1 -1 .0 00 PE ti JE 16 0- 0- [address] 20 20 53 23 17 17 88 FA SY 1 21 OR RI LY NG E DR 0. UG 5 ML CI 00 02 03 30 30 00 SO Ac TA 37 -1 -1 .0 00 PE ti LO 86 0- 0- 00 00 RS ve PA 23 20 20 54 AM 20 17 17 22 FA 5 33 OR HB LY R 20 DR UG MG TA BL ET FU 00 02 03 30 30 00 SO Ac RO 37 -1 -1 .0 00 PE ti SE 80 0- 0- 00 00 RS ve OR 20 20 20 54 DE 81 17 17 69 FA 0 98 OR [address] UG TA BL ET LI 68 02 03 30 30 00 SO Ac SI 18 -1 -1 .0 00 PE ti NO 00 0- 0- 00 00 RS ve PA 51 20 20 53 IL 70 17 17 88 FA 3 18 OR [address] UG TA BL ET BR 00 02 03 60 30 00 SO Ac IL 18 -1 -1 .0 00 PE ti IN 60 0- 0- 00 00 RS ve TA 77 20 20 53 76 17 17 88 FA 90 0 [address] TA UG BL ET AT 00 02 03 30 30 00 SO Ac OR 37 -1 -1 .0 00 PE ti VA 83 0- 0- [address] 95 20 20 53 AT 30 17 17 88 FA IN 5 [address] MG UG TA BL ET ME 00 03 30 30 00 SO Ac TO 37 -1 -1 .0 00 PE ti PA 80 0- 0- 00 00 RS ve OL 01 20 20 53 OL 80 17 17 88 FA 5 16 OR TA LY RT RA DR TE UG 25 MG TA B FU 00 02 30 30 00 SO Ac RO 37 -1 -0 .0 00 PE ti SE 80 3- 3- 00 00 RS ve OR 20 20 20 54 DE 81 17 17 69 FA 0 98 OR [address] UG TA BL ET NO 00 02 20 30 00 SO Ac VO 16 -1 -0 .0 00 PE ti LI 91 3- 3- 00 00 RS ve N 83 20 20 53 70 71 17 17 88 FA -3 1 20 OR [address] UN UG IT /M L AL MO 08 02 60 30 00 SO Ac NO 88 -1 -0 .0 00 PE ti JE 16 3- 3- [address] 09 20 20 53 23 17 17 88 FA SY 1 21 OR RI LY NG E DR 0. UG 5 ML AT 00 02 30 30 00 SO Ac OR 37 -1 -0 .0 00 PE ti VA 83 2- 3- [address] 95 20 20 53 AT 30 17 17 88 FA IN [address] MG UG TA BL ET LI 68 02 30 30 00 SO Ac SI 18 -1 -0 .0 00 PE ti NO 00 2- 3- 00 00 RS ve PA 51 20 20 53 IL 70 17 17 88 FA 3 18 OR [address] UG TA BL ET ME 00 02 30 30 00 SO Ac TO 37 -1 -0 .0 00 PE ti PA 80 3- 3- 00 00 RS ve OL 01 20 20 53 OL 80 17 17 88 FA 5 16 OR TA LY RT RA DR TE UG 25 MG TA B BR 00 12 60 30 00 SO Ac IL 18 -2 -2 .0 00 PE ti IN 60 9- 0- 00 00 RS ve TA 77 20 20 53 76 16 17 88 FA 90 0 [address] TA UG BL ET ME 23 12 01 60 30 00 SO Ac TF 15 -2 -2 .0 00 PE ti OR 50 9- 0- 00 00 RS ve OR 10 20 20 54 N 21 16 17 66 FA HC 0 47 OR L LY [address] MG UG TA BL ET TR 57 12 01 60 15 00 SO Ac AM 66 -1 -0 .0 00 PE ti AD 40 4- 9- 00 00 RS ve OL 37 20 20 55 71 16 17 10 FA HC 8 21 OR L LY 50 DR MG UG TA BL ET DI 16 12 01 60 30 00 SO Ac CL 57 -1 -0 .0 00 PE ti OF 10 4- 9- 00 00 RS ve EN 20 20 20 55 AC 11 16 17 10 FA 1 28 OR SO LY D EC DR UG 75 MG TA B LI 57 12 01 30 30 00 SO Ac SI 23 -1 -0 .0 00 PE ti NO 70 2- 9- 00 00 RS ve PA 05 20 20 53 IL 79 16 17 88 FA 9 18 OR [address] UG TA BL ET NO 00 12 20 30 00 SO Ac VO 16 -1 -0 .0 00 PE ti LI 91 2- 9- 00 00 RS ve N 83 20 20 53 70 71 16 17 88 FA -3 1 20 OR [address] UN UG IT /M L AL MO 08 12 01 60 30 00 SO Ac NO 88 -1 -0 .0 00 PE ti JE 16 2- 9- [address] 20 20 53 23 16 17 88 FA SY 1 21 OR RI LY NG E DR 0. UG 5 ML ME 00 12 30 30 00 SO Ac TO 37 -1 -0 .0 00 PE ti PA 80 2- 9- 00 00 RS ve OL 01 20 20 53 OL 80 16 17 88 FA 5 16 OR TA LY RT RA DR TE UG 25 MG TA B FU 00 12 30 30 00 SO Ac RO 37 -1 -0 .0 00 PE ti SE 80 2- 9- 00 00 RS ve OR 20 20 20 54 DE 81 16 17 69 FA 0 98 OR [address] UG TA BL ET CI 00 12 30 30 00 SO Ac TA 37 -1 -0 .0 00 PE ti LO 86 2- 9- 00 00 RS ve PA 23 20 20 54 AM 20 16 17 22 FA 5 33 OR HB LY R 20 DR UG MG TA BL ET AT 00 12 01 30 30 00 SO Ac OR 37 -1 -0 .0 00 PE ti VA 83 2- 9- [address] 95 20 20 53 AT 30 16 17 88 FA IN [address] MG UG TA BL ET Immunization Name Date Route CVX Reacti Commen Provid Is Given on t er Refuse d TDAP CARRANZA No VACCIN 2013 ON MEM E 7 HOSP YRS/> INC IM Procedures Procedure DOS Code Location Performer Comment SHOULDER L3650 [facility] 6 TECHNOLOG TECHNOLOG FIG 8 IES INC IES INC ABDUCT RESTRAINE R PREFAB ECHO 06652 [place] JIMÉNEZ GILA TTHRC R-T 6 MEDICAL 2D SERV W/WOM-MOD FOUNDATIO E COMPL N SPEC&COLR D CATH 13741 [place] RONALDO PLACEMENT 6 MEDICAL & NJX SERV CORONARY FOUNDATIO [place] ANG[place] IM[place] S&[place] [address] [facility] TROPONIN 6 [facility] QUANTITAT INC INC SANIA CREATINE 14305 [facility] KINASE 6 [facility] [place] [address] [facility] LIPASE 6 [facility] INC INC THER 09871 [facility] PROPH/DX 6 [facility] NJX IV INC INC PUSH SINGLE/1S T SBST/DRUG ECG 51750 [facility] ROUTINE 6 [facility] ECG INC INC W/LEAST 12 LDS TRCG ONLY W/O I&R BLOOD 69677 [facility] COUNT 6 [facility] COMPLETE INC INC AUTO&AUTO DIFRNTL WBC THERAPEUT 16583 [facility] IC 6 [facility] INJECTION INC INC IV PUSH EACH NEW DRUG INITIAL 48576 [facility] 6 NURSE CARE/DAY PRACTITIO 50 NER GR MINUTES GROUND A0425 [facility] [address] [place] [address] PER AMBULANCE AMBULANCE STATUTE SE SE MILE RADIOLOGI 92340 [facility] C 6 [facility] EXAMINATI INC INC ON CHEST [place]ING[place] FRONTAL CREATINE 89254 [facility] KINASE MB 6 [facility] FRACTION INC INC ONLY CRITICAL 92504 [facility] CARE 6 PHYSICIAN SHERWIN ILL/INJUR S, [facility] ED PATIENT INIT 30-74 MIN AMB A0427 [facility]ICE 6 [facility] AMBULANCE AMBULANCE EMERGENCY SE SE TRANSPORT LEVEL 1 CRITICAL 12782 [facility] 6 PHYSICIAN SHERWIN ILL/INJUR S, [facility] ED PATIENT ADDL 30 MIN COMPREHEN 14705 [facility] SIVE 6 [facility] METABOLIC INC INC PANEL INJECTION J2405 [facility] 6 [facility] ONDANSETR INC INC ON HCL PER 1 MG ECG 96472 [facility] MIRELES JR ROUTINE 6 [facility] W/LEAST P 12 LDS I&R ONLY FIBRIN 85637 [facility] DGRADJ 6 [facility] PRODUCTS INC INC D-DIMER QUAL/SEMI ROLANDO INSJ 00597 [facility] 6 PHYSICIAN SHERWIN LED S, [facility] CENTRAL VENOUS CATH AGE 5 YR/> DUP-SCAN 57447 [facility] XTR VEINS 6 [facility] INC INC UNILATERA L/LIMITED STUDY COLLECTIO 81677 [facility] N VENOUS [facility] BLOOD URGENT VENIPUNCT TREAT URE BLOOD 06740 [facility] OCCULT 5 [facility] PEROXIDAS URGENT E ACTV TREAT QUAL FECES 1 DETER LIPID 37610 [facility] PANEL 5 [facility] MEM HOS[facility] INC INC 25 82673 [facility] HYDROXY 5 [facility] INCLUDES INC INC FRACTIONS IF PERFORMED COLLECTIO 75764 [facility] NIKKI N VENOUS 5 PHYSICIAN MARIBELL BLOOD S GROUP VENIPUNCT URE BLOOD 61367 [facility] COUNT 5 [facility] MEM HOSP COMPLETE INC INC AUTO&[place] [address] [facility] FREE 5 [facility] [place] [address] [facility] THYROID 5 [facility] STIMULATI INC INC NG HORMONE TSH COMPREHEN 67133 [facility] SIVE 5 [facility] METABOLIC INC INC PANEL PROSTATE G0103 [facility] CANCER 5 [facility] SCREENING INC INC ; PSA TEST DUP-SCAN 93054 [facility] XTR VEINS 5 [facility] INC INC UNILATERA L/LIMITED STUDY THERAPEUT 18486 [facility] CARRANZAON IC 5 [facility] H[facility] PROPHYLAC INC INC TIC/DX INJECTION SUBQ/IM FIBRIN 70154 [facility] DGRADJ 5 [facility] PRODUCTS INC INC D-DIMER QUAL/SEMI ROLANDO PROTHROMB 95682 [facility] IN TIME 5 [facility] INC INC SEDIMENTA 05076 [facility] TION RATE 5 [facility] RBC INC INC NON-AUTOM ATED THROMBOPL 60911 [facility] ASTIN 5 [facility] TIME INC INC PARTIAL PLASMA/WH OLE BLOOD COMPREHEN 85095 [facility] SIVE 5 [facility] METABOLIC INC INC PANEL COLLECTIO 96669 [facility] N VENOUS 5 [facility] BLOOD INC INC VENIPUNCT URE BLOOD 81752 [facility] COUNT 5 [facility] COMPLETE INC INC AUTO&AUTO DIFRNTL WBC THERAPEUT 12290 [facility] IC 4 [facility] INJECTION INC INC IV PUSH EACH NEW DRUG BLOOD 83347 [facility] COUNT 4 [facility] COMPLETE INC INC AUTO&AUTO DIFRNTL WBC IM ADM 26073 [facility] PRQ ID 4 [facility] SUBQ/IM INC INC NJXS 1 VACCINE TDAP 25596 [facility] VACCINE 7 4 [facility] YRS/> IM INC INC COMPREHEN 65030 [facility] SIVE 4 [facility] METABOLIC INC INC PANEL RADEX 23612 [place] [facility] 2 4 [place] [address] [facility] INFUSION 4 [facility] THERAPY/P INC INC ROPHYLAXI S /DX 1ST TO 1 HR CULTURE 73978 [facility] BACTERIAL 4 [facility] BLOOD INC INC AEROBIC W/ID ISOLATES LARYNGOSC 55234 [place] MONTERO OPY 4 MEDICAL ALEJANDRE FLEXIBLE SERV DIAGNOSTI FOUNDATIO C N ECG 61891 [facility] ROUTINE 4 MACY MARIBELL ECG EMERGENCY W/LEAST PHYS 12 LDS I&R ONLY RAD[facility]OLOGI 11522 [facility] EVELINE CHEST 2 IMAGING VIEWS ASS FRONTAL&L ATERAL RADEX [address]3091 [place] NICKELS HAND 4 MEDICAL JACKLYN MINIMUM 3 SERV VIEWS FOUNDATIO Encounters Encounter Start End Date Code Location Performer Type Date OFFICE 63984 [facility] OUTPATIEN 7 7 [facility] T VISIT SOLUTIONS 25 IN MINUTES OFFICE 20796 [facility] OUTPATIEN 7 7 [facility] T VISIT SOLUTIONS 15 IN MINUTES OFFICE 49509 [facility] OUTPATIEN 7 7 [facility]ALTH T VISIT SOLUTIONS 25 IN MINUTES OFFICE 26509 [facility] OUTPATIEN 6 6 HEALTH T VISIT SOLUTIONS 15 IN MINUTES OFFICE 27952 [facility] OUTPATIEN 6 6 HEALTH T VISIT SOLUTIONS 15 IN MINUTES OFFICE 49360 CLARISSA KIERAN OUTPATIEN 6 6 MEDICAL T VISIT SERV 15 FOUNDATIO MINUTES N [facility]OSP[facility] - 6 6 [facility] OUTPATIEN INC T EMERGENCY 35659 CLARISSA SALLIE 6 6 MEDICAL ADRIEN DEPARTMEN SERV T VISIT FOUNDATIO HIGH/URGE N NT SEVERITY EMERGENCY 00818 [facility] 6 6 [facility] VISIT INC HIGH SEVERITY& THREAT FUNCJ OFFICE 76443 [facility] T VISIT URGENT 15 TREAT MINUTES [facility] - 6 6 [facility] T OFFICE 92221 [facility] T VISIT URGENT 25 TREAT MINUTES [facility] - 5 5 [facility] INC T OFFICE 40005 [facility] T VISIT [facility]RGENT 25 TREAT MINUTES [facility] - 5 5 [facility] INC T OFFICE 28925 [facility] NIKKI OUTPATIEN 5 5 PHYSICIAN MARIBELL T VISIT S GROUP 25 MINUTES OFFICE 13652 [facility] OUTPATIEN 5 5 PHYSICIAN MARIBELL T VISIT S GROUP 15 MINUTES [facility]OSP[facility] - 5 5 [facility] OUTPATI[facility] INC T EMERGENCY 86410 [facility] JORDAN [address] [facility] T VISIT P MODERATE SEVERITY [facility]OSPITAL [facility] - 5 5 [facility] OUTPATIEN INC T EMERGENCY 91812 [facility] 5 5 [facility] INC T VISIT LOW/MODER SEVERITY [facility]OSPITAL [facility] - 4 4 [facility] OUTPATIEN INC T EMERGENCY 13514 [facility] 4 4 [facility] MODERATE SEVERITY OFFICE 01285 CLARISSA MONTERO OUTPATIEN 4 4 MEDICAL ALEJANDRE T NEW 45 SERV MINUTES FOUNDATIO N EMERGENCY 91580 [facility] DEPT 4 4 MACY MARIBELL VISIT EMERGENCY HIGH PHYS SEVERITY& THREAT FUN OFFICE 73103 GIRMA RAYO OUTPATIEN 4 4 SHERWIN COURTNEY T NEW 30 MINUTES
--- OUTSIDE RECORDS SUMMARY | 2017-03-31 21:38 | External Medical Summary Rpt ---
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 Name Role Phone [employer] Unavailable Unavailable INC, [employer] Unavailable Unavailable INC, [employer] MONTERO ALEJANDRE, MONTERO Unavailable Unavailable ALEJANDRE BEINEKE EVELINE, BEINEKE Unavailable Unavailable EVELINE KIERAN, KIERAN Unavailable Unavailable ROLDAN ALL, ROLDAN ALL Unavailable Unavailable SALLIE ADRIEN, SLALIE Unavailable Unavailable ADRIEN [facility] Unavailable Unavailable SERVICE, [facility] Unavailable Unavailable SERVICE, [facility] RUBY KEVIN, Unavailable Unavailable RUBY KEVIN FALLS CAN, FALLS CAN Unavailable Unavailable NIKKI MARIBELL, NIKKI Unavailable Unavailable MARIBELL [facility] Unavailable Unavailable INC, [facility] Un[facility] Un[facility]PITAL P, [facility], Unavailable Unavailable [facility] MAC, MAC Unavailable Unavailable MAC NAN, MAC Unavailable Unavailable NAN [facility] Un[facility] Un[facility], [facility] NURSE Unavailable Unavailable PRACTITIONER GR, K[facility] NURSE PRACTITIONER GR [facility] Un[facility], [facility] JIMÉNEZ GILA, JIMÉNEZ GILA Unavailable Unavailable RONALDO, RONALDO Unavailable Unavailable ALINE JR DWI, ALINE Unavailable Unavailable JR DWI GIRMA SHERWIN, GIRMA Unavailable Unavailable SHERWIN GIRMA SHERWIN, GIRMA Unavailable Unavailable SHERWIN [facility] Unavailable Unavailable AMBULANCE SE, [facility] AMBULANCE [facility] Unavailable Unavailable URGENT TREAT, [facility]ENT [facility] NICKELS JACKLYN, NICKELS Unavailable Unavailable JACKLYN RENUSCH SHERWIN, RENUSCH Unavailable Unavailable SHERWIN [facility] Unavailable Unavailable EMERGENCY PHYS, [facility] EMERGENC[facility]YS [facility] Unavailable Unavailable SOLUTIONS IN, [facility] Purpose Continuity of Care Document - [...] SEROUS HEALTH OTITIS SOLUTIONS MEDIA IN BILATERAL [id number] PAIN IN 01-13-2017 [facility] RIGHT LEG HEALTH SOLUTIONS IN [id number] PAIN IN 01-13-2017 [facility] LEFT LEG HEALTH SOLUTIONS IN [id number] SPRAIN RT 11-03-2016 [facility] ACROMIOCLAV HEALTH ICULAR SOLUTIONS JOINT IN SUBSQT ENC [id number] PAIN IN 10-28-2016 [facility] UNSPECIFIED HEALTH SHOULDER SOLUTIONS IN [id number] CONTUSION 10-22-2016 [facility] RIGHT [facility]CHNOLOGIE SHOULDER S INC INITIAL ENCOUNTER G4700 INSOMNIA 06-10-2016 [facility] 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 [facility] E[facility]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 Q24113 PAIN IN LEG 06-10-2016 [facility] UNSPECIFIED [facility] A27636 ASHD NUIQSUT 04-27-2016 [facility] ART SERV W/OTH FORMS [facility]OUNDATION ANGINA PECTORIS 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-25-2016 [facility] P WITH HYPERGLYCEM IA E119 TYPE 2 04-25-2016 [facility] DIABETES PRACTITIONE MELLITUS R GR WITHOUT COMPLICATIO NS E639 NUTRITIONAL 04-25-2016 [facility]SE DEFICIENCY PRACTITIONE R GR UNSPECIFIED E878 OTHER D/O 04-25-2016 [facility]SE OF PRACTITIONE ELECTROLYTE R GR AND FLUID BALANCE NEC I10 ESSENTIAL 04-25-2016 [facility]SE PRIMARY PRACTITIONE HYPERTENSIO R GR N I517 CARDIOMEGAL 04-25-2016 [facility] R079 CHEST PAIN 04-25-2016 [facility] UNSPECIFIED COUNTY AMBULANCE SE R112 NAUSEA WITH 04-25-2016 [facility] VOMITING [facility] UNSPECIFIED AMBULANCE SE R531 WEAKNESS 04-25-2016 [facility] AMBULANCE SE R61 GENERALIZED 04-25-2016 [facility] HYPERHIDROS AMBULANCE IS SE R7989 OTHER SPEC 04-25-2016 [facility] ABNORMAL [facility] FINDINGS SERVICE BLOOD CHEMISTRY R9431 ABNORMAL 04-25-2016 [facility] ELECTROCARD SERV IOGRAM FOUNDATION Z452 ENCOUNTER 04-25-2016 [facility] VASCULAR ACCESS DEVICE Z720 TOBACCO USE 04-25-2016 [facility] P A26650 CELLULITIS 03-04-2016 [facility] LOWER LIMB URGENT TREAT E97459 PAIN IN 02-27-2016 [facility] LEFT THIGH [facility] INC M7989 OTHER 02-27-2016 [place] SPECIFIED MEDICAL SOFT TISSUE IMAGING ASS DISORDERS R600 LOCALIZED 02-27-2016 [place] [facility] 38561 DIAB W/O 07-30-2015 [facility] COMP TYPE [facility] II/UNS NOT URGENT STATED TREAT UNCNTRL 11003 HYPERTROPHY 07-30-2015 [facility] PROSTATE [facility] W/UR OBST & URGENT OTH LUTS TREAT 33204 URINARY 07-30-2015 [facility] FREQUENCY [facility] URGENT TREAT 6829 CELLULITIS 02-04-2015 [facility] AND ABSCESS PHYSICIANS OF GROUP UNSPECIFIED SITE 37699 OTHER 02-04-2015 [facility] FATIGUE INC 7823 EDEMA 02-04-2015 [facility] 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 V770 SCREENING 02-04-2015 [facility] DISORDER INC V7791 SCREENING 02-04-2015 [facility] FOR LIPOID PHYSICIANS DISORDERS GROUP V781 SCREENING 02-04-2015 [facility] OTHER&UNSPE PHYSICIANS CIFIED GROUP DEFICIENCY ANEMIA 7295 PAIN IN 12-06-2014 [place] SOFT MEDICAL TISSUES OF IMAGING ASS LIMB 05052 SWELLING OF 12-06-2014 [facility] INC 6826 CELLULITIS 12-05-2014 [facility] AND ABSCESS [facility] P EXCEPT FOOT V146 PERSONAL 12-05-2014 [facility] HISTORY OF [facility] ALLERGY TO [facility] P ANALGESIC AGENT 46674 OPEN WOUND 10-24-2014 [facility] COM[facility] E8490 PLACE OF 10-24-2014 [facility] OCCURRENCE, [facility] P E8859 FALL FROM 10-24-2014 [facility] OTHER [facility] P TRIPPING OR STUMBLING 470 DEVIATED 10-18-2014 [facility] NASAL SERV SEPTUM FOUNDATION 39771 ESOPHAGEAL 10-18-2014 [facility] REFLUX SERV [facility] 88622 LARYNGEAL 09-22-2014 [facility] PH[facility] 78596 ASTHMA, 09-22-2014 [facility] UNSPECIFIED N EMERGENCY , PHYS UNSPECIFIED STATUS 75461 SHORTNESS 09-22-2014 [place] OF BREATH MEDICAL IMAGING ASS 23436 OTHER 09-22-2014 [facility] DYSPNEA AND N EMERGENCY PHYS RESPIRATORY ABNORMALITI ES 6824 CELLULITIS& 04-26-2014 GIRMA COURTNEY ABSCESS OF HAND EXCEPT FINGERS&[place] [address] CERTAIN 04-26-2014 GIRMA SHERWIN ADVERSE EFFECTS NEC OTHER Medications Na ND Rx Da Fi Fi [...] 17 17 17 FA 40 1 42 WI [address] TA UG BL ET ME 00 04 05 30 30 00 SO Ac TO 37 -2 -1 .0 00 PE ti ND 80 0- 2- 00 00 RS ve OL 01 20 20 53 OL 80 17 17 88 FA 5 16 WI TA LY RT RA DR TE UG 25 MG TA B FU 00 04 05 30 30 00 SO Ac RO 37 -2 -1 .0 00 PE ti SE 80 1- 2- 00 00 RS ve WI 20 20 20 54 DE 81 17 17 69 FA 0 98 WI [address] UG TA BL ET NO 00 04 05 20 30 00 SO Ac VO 16 -0 -0 .0 00 PE ti LI 91 8- 5- 00 00 RS ve N 83 20 20 53 70 71 17 17 88 FA -3 1 20 WI [address] UN UG IT /M L AL BR 00 03 05 60 30 00 SO Ac IL 18 -2 -0 .0 00 PE ti IN 60 7- 5- 00 00 RS ve TA 77 20 20 53 76 17 17 88 FA 90 0 [address] TA UG BL ET ME 23 03 05 60 30 00 SO Ac TF 15 -2 -0 .0 00 PE ti OR 50 7- 5- 00 00 RS ve WI 10 20 20 54 N 21 17 17 66 FA HC 0 47 WI L LY [address] MG UG TA BL ET AZ 00 04 05 6. 5 00 SO Ac IT 78 -0 -0 00 00 PE ti HR 11 3- 5- 0 00 RS ve OM 49 20 20 56 YC 66 17 17 04 FA IN 8 75 [place] LY [address] MG UG TA BL ET ND 00 04 05 12 5 00 SO Ac OM 60 -0 -0 0. 00 PE ti ET 31 3- 5- 00 00 RS ve GARCIA 58 20 20 0 56 ZI 65 17 17 04 FA NE 8 77 WI -D LY M SY DR RU UG P UL 08 04 05 60 30 00 SO Ac TR 88 -1 -0 .0 00 PE ti A 16 0- 5- 00 00 RS ve CO 09 20 20 53 MF 00 17 17 88 FA OR 4 21 WI T LY 0. 5 DR ML UG SY RI NG E AT 00 04 05 30 30 00 SO Ac OR 37 -1 -0 .0 00 PE ti VA 83 4- 5- [address] 95 20 20 53 AT 30 17 17 88 FA IN 5 [address] MG UG TA BL ET LI 68 04 05 30 30 00 SO Ac SI 18 -1 -0 .0 00 PE ti NO 00 4- 5- 00 00 RS ve ND 51 20 20 53 IL 70 17 17 88 FA 3 18 WI [address] UG TA BL ET BU 00 04 05 30 15 00 RO Ac ND 05 -1 -0 .0 00 SS ti EN 40 2- 5- 00 01 ve OR [address] PH 91 17 17 87 UG IN 3 54 S -N AL OX ON 8- 2 MG SL BU 50 03 04 15 7 00 RO Ac ND 38 -2 -1 .0 00 SS ti EN 30 3- 4- 00 01 ve OR [address] PH 79 17 17 61 UG IN 3 02 S -N AL OX ON 8- 2 MG SL ME 00 03 04 30 30 00 SO Ac TO 37 -2 -1 .0 00 PE ti ND 80 0- 4- 00 00 RS ve OL 01 20 20 53 OL 80 17 17 88 FA 5 16 WI TA LY RT RA DR TE UG 25 MG TA B AT 00 03 04 30 30 00 SO Ac OR 37 -1 -0 .0 00 PE ti VA 83 3- 7- [address] 95 20 20 53 AT 30 17 17 88 FA IN 5 [address] MG UG TA BL ET LI 68 03 04 30 30 00 SO Ac SI 18 -1 -0 .0 00 PE ti NO 00 3- 7- 00 00 RS ve ND 51 20 20 53 IL 70 17 17 88 FA 3 18 WI [address] UG TA BL ET ET 51 03 04 60 30 00 SO Ac OD 67 -1 -0 .0 00 PE ti OL 24 4- 7- 00 00 RS ve AC 01 20 20 55 80 17 17 87 FA 40 1 19 WI [address] TA UG BL ET CY 00 03 04 30 30 00 SO Ac CL 60 -1 -0 .0 00 PE ti OB 33 4- 7- 00 00 RS ve EN 07 20 20 55 ZA 82 17 17 87 FA ND 1 20 WI IN LY E 5 DR MG UG TA BL ET FU 00 03 04 30 30 00 SO Ac RO 37 -1 -0 .0 00 PE ti SE 80 5- 7- 00 00 RS ve WI 20 20 20 54 DE 81 17 17 69 FA 0 98 WI [address] UG TA BL ET BU 00 03 04 15 7 00 RO Ac ND 05 -1 -0 .0 00 SS ti EN 40 6- 7- 00 01 ve OR [address] PH 91 17 17 52 UG IN 3 11 S -N AL OX ON 8- 2 MG SL BU 50 03 03 15 7 00 RO Ac ND 38 -0 -3 .0 00 SS ti [...] 17 17 88 FA SY 8 21 WI RI LY N 0. DR 5 UG ML 28 GX 1/ 2" NO 00 03 03 20 30 00 SO Ac VO 16 -0 -2 .0 00 PE ti LI 91 1- 4- 00 00 RS ve N 83 20 20 53 70 71 17 17 88 FA -3 1 20 WI [address] UN UG IT /M L AL FL 00 03 03 16 30 00 SO Ac UT 05 -0 -2 .0 00 PE ti IC 43 1- 4- 00 00 RS ve 27 20 20 55 ON 08 01 17 76 FA E 9 53 WI ND LY OP DR 50 UG MC G SP RA Y DI 61 03 03 60 30 00 SO Ac CL 44 -0 -2 .0 00 PE ti OF 20 1- 4- 00 00 RS ve EN 10 20 20 55 AC 31 17 17 76 FA 0 54 WI SO LY D DR DR UG 75 MG TA B CE 16 03 03 14 14 00 SO Ac TI 57 -0 -2 .0 00 PE ti RI 10 1- 4- 00 00 RS ve ZI 40 20 20 55 NE 25 17 17 76 FA 0 55 WI HC LY L 10 DR UG MG TA BL ET TI 57 03 03 30 30 00 SO Ac ZA 66 -0 -2 .0 00 PE ti NI 40 1- 4- 00 00 RS ve DI 50 20 20 55 NE 31 17 17 76 FA 8 56 WI HC LY L 4 DR MG UG TA BL ET BU 00 03 03 15 7 00 RO Ac ND 05 -0 -2 .0 00 SS ti EN 40 2- 4- 00 01 ve OR [address] PH 91 17 17 33 UG IN 3 57 S -N AL OX ON 8- 2 MG SL ME 00 02 03 30 30 00 SO Ac TO 37 -1 -1 .0 00 PE ti ND 80 0- 0- 00 00 RS ve OL 01 20 20 53 OL 80 17 17 88 FA 5 16 WI TA LY RT RA DR TE UG 25 MG TA B AT 00 02 03 30 30 00 SO Ac OR 37 -1 -1 .0 00 PE ti VA 83 0- 0- [address] 95 20 20 53 AT 30 17 17 88 FA IN 5 [address] MG UG TA BL ET BR 00 02 03 60 30 00 SO Ac IL 18 -1 -1 .0 00 PE ti IN 60 0- 0- 00 00 RS ve TA 77 20 20 53 76 17 17 88 FA 90 0 [address] TA UG BL ET LI 68 03 30 30 00 SO Ac SI 18 -1 -1 .0 00 PE ti NO 00 0- 0- 00 00 RS ve ND 51 20 20 53 IL 70 17 17 88 FA 3 18 WI [address] UG TA BL ET FU 02 03 30 30 00 SO Ac RO 37 -1 -1 .0 00 PE ti SE 80 0- 0- 00 00 RS ve WI 20 20 20 54 DE 81 17 17 69 FA 0 98 WI [address] UG TA BL ET CI 00 02 03 30 30 00 SO Ac TA 37 -1 -1 .0 00 PE ti LO 86 0- 0- 00 00 RS ve ND 23 20 20 54 AM 20 17 17 22 FA 5 33 WI HB LY R 20 DR UG MG TA BL ET MO 08 02 03 60 30 00 SO Ac NO 88 -1 -1 .0 00 PE ti JE 16 0- 0- [address] 20 20 53 23 17 17 88 FA SY 1 21 WI RI LY NG E DR 0. UG 5 ML ME 23 02 03 60 30 00 SO Ac TF 15 -1 -1 .0 00 PE ti OR 50 4- 0- 00 00 RS ve WI 10 20 20 54 N 21 17 17 66 FA HC 0 47 WI L LY [address] MG UG TA BL ET LI 68 02 30 30 00 SO Ac SI 18 -1 -0 .0 00 PE ti NO 00 2- 3- 00 00 RS ve ND 51 20 20 53 IL 70 17 17 88 FA 3 18 WI [address] UG TA BL ET ME 00 02 30 30 00 SO Ac TO 37 -1 -0 .0 00 PE ti ND 80 3- 3- 00 00 RS ve OL 01 20 20 53 OL 80 17 17 88 FA 5 16 WI TA LY RT RA DR TE UG 25 MG TA B FU 00 02 30 30 00 SO Ac RO 37 -1 -0 .0 00 PE ti SE 80 3- 3- 00 00 RS ve WI 20 20 20 54 DE 81 17 17 69 FA 0 98 WI [address] UG TA BL ET NO 00 02 20 30 00 SO Ac VO 16 -1 -0 .0 00 PE ti LI 91 3- 3- 00 00 RS ve N 83 20 20 53 70 71 17 17 88 FA -3 1 20 WI [address] UN UG IT /M L AL MO 08 02 60 30 00 SO Ac NO 88 -1 -0 .0 00 PE ti JE 16 3- 3- [address] 20 20 53 23 17 17 88 FA SY 1 21 WI RI LY NG E DR 0. UG 5 ML AT 00 02 30 30 00 SO Ac OR 37 -1 -0 .0 00 PE ti VA 83 2- 3- [address] 95 20 20 53 AT 30 17 17 88 FA IN 5 [address] [place] [address] MG UG TA BL ET BR 00 12 01 60 30 00 SO Ac IL 18 -2 -2 .0 00 PE ti IN 60 9- 0- 00 00 RS ve TA 77 20 20 53 76 16 17 88 FA 90 0 [address] TA UG BL ET ME 23 12 01 60 30 00 SO Ac TF 15 -2 -2 .0 00 PE ti OR 50 9- 0- 00 00 RS ve WI 10 20 20 54 N 21 16 17 66 FA HC 0 47 WI L LY [address] MG UG TA BL ET LI 57 12 01 30 30 00 SO Ac SI 23 -1 -0 .0 00 PE ti NO 70 2- 9- 00 00 RS ve ND 05 20 20 53 IL 79 16 17 88 FA 9 18 WI [address] UG TA BL ET TR 57 12 01 60 15 00 SO Ac AM 66 -1 -0 .0 00 PE ti AD 40 4- 9- 00 00 RS ve OL 37 20 20 55 71 16 17 10 FA HC 8 21 WI L LY 50 DR MG UG TA BL ET DI 16 12 60 30 00 SO Ac CL 57 -1 -0 .0 00 PE ti OF 10 4- 9- 00 00 RS ve EN 20 20 20 55 AC 11 16 17 10 FA 1 28 WI SO LY D EC DR UG 75 MG TA B NO 00 12 20 30 00 SO Ac VO 16 -1 -0 .0 00 PE ti LI 91 2- 9- 00 00 RS ve N 83 20 20 53 70 71 16 17 88 FA -3 1 20 WI [address] UN UG IT /M L AL MO 08 12 60 30 00 SO Ac NO 88 -1 -0 .0 00 PE ti JE 16 2- 9- [address] 20 20 53 23 16 17 88 FA SY 1 21 WI RI LY NG E DR 0. UG 5 ML ME 00 12 30 30 00 SO Ac TO 37 -1 -0 .0 00 PE ti ND 80 2- 9- 00 00 RS ve OL 01 20 20 53 OL 80 16 17 88 FA 5 16 WI TA LY RT RA DR TE UG 25 MG TA B FU 00 12 30 30 00 SO Ac RO 37 -1 -0 .0 00 PE ti SE 80 2- 9- 00 00 RS ve WI 20 20 20 54 DE 81 16 17 69 FA 0 98 WI [address] UG TA BL ET CI 00 10 15 30 30 00 SO Ac TA 37 -1 -0 .0 00 PE ti LO 86 2- 9- 00 00 RS ve ND 23 20 20 54 AM 20 16 17 22 FA 5 33 WI HB LY R 20 DR UG MG TA BL ET AT 00 12 30 30 00 SO Ac OR 37 -1 -0 .0 00 PE ti VA 83 2- 9- [address] 95 20 20 53 AT 30 16 17 88 FA IN 5 [address] MG UG TA BL ET Immunization Name Date Route CVX Reacti Commen Provid Is Given on t er Refuse d TDAP CARRANZA No VACCIN 2014 ON MEM E 7 HOSP YRS/> INC IM Procedures Procedure DOS Code Location Performer Comment SHOULDER L3650 [facility] 6 TECHNOLOG TECHNOLOG FIG 8 IES INC IES INC ABDUCT RESTRAINE R PREFAB ECHO 42248 CLARISSA JIMÉNEZ GILA TTHRC R-T 6 MEDICAL 2D SERV W/WOM-MOD FOUNDATIO E COMPL N SPEC&COLR D CATH 13627 CLARISSA RONALDO PLACEMENT 6 MEDICAL & NJX SERV CORONARY FOUNDATIO ART ANGIO N IMG S&I FIBRIN 34607 [facility] DGRADJ 6 [facility] PRODUCTS INC INC D-DIMER QUAL/SEMI ROLANDO ECG 37999 [facility] MIRELES JR ROUTINE 6 [facility] W/LEAST P 12 LDS I&R ONLY THERAPEUT 05126 [facility] IC 6 [facility] INJECTION INC INC IV PUSH EACH NEW DRUG INITIAL 79719 [facility] 6 NURSE CARE/DAY PRACTITIO 50 NER GR MINUTES ECG 34191 [facility] ROUTINE 6 [facility] ECG INC INC W/LEAST 12 LDS TRCG ONLY W/O I&R CRITICAL 60375 [facility] 6 PHYSICIAN SHERWIN ILL/INJUR S, [facility] ED PATIENT INIT 30-74 MIN AMB A0427 [facility] 6 AMBULANCE AMBULANCE ALS SERVICE SERVICE EMERGENCY TRANSPORT LEVEL 1 THER 88434 [facility] PROPH/DX 6 [facility] NJX IV INC INC PUSH SINGLE/1S T SBST/DRUG RADIOLOGI 40788 [place] R[facility] ALL C 6 MEDICAL EXAMINATI IMAGING ON CHEST ASS [place] FRONTAL COMPREHEN 69174 [facility] SIVE 6 [facility] METABOLIC INC INC PANEL CRITICAL 34234 [facility] 6 PHYSICIAN SHERWIN ILL/INJUR S, [facility] ED PATIENT ADDL 30 MIN INJECTION J2405 [facility] 6 [facility] ONDANSETR INC INC ON HCL PER 1 MG CREATINE 60192 [facility] KINASE 6 [facility] [place] [place] [address] [facility] LIPASE 6 [facility] INC INC BLOOD 80108 [facility] COUNT 6 [facility] COMPLETE INC INC AUTO&AUTO DIFRNTL WBC CREATINE 49006 [facility] KINASE MB 6 [facility] H[facility] FRACTION INC INC ONLY GROUND A0425 [facility] 6 AMBULANCE AMBULANCE [place] [address] TONE KINCAID NON-TUNNE 6 PHYSICIAN SHERWIN Bravo, [facility] CENTRAL VENOUS CATH AGE 5 YR/> [place] [address] [facility] TROPONIN 6 [facility] QUANTITAT INC INC SANIA DUP-SCAN 18126 [place] ROLDAN ALL XTR VEINS 6 MEDICAL IMAGING UNILATERA ASS L/LIMITED STUDY COLLECTIO 50786 [facility] N VENOUS 5 [facility] BLOOD URGENT VENIPUNCT TREAT URE BLOOD 72173 [facility] OCCULT 5 [facility] PEROXIDAS URGENT E ACTV TREAT QUAL FECES 1 [place] [address] [facility] FREE 5 [facility] [place] [address] [facility] THYROID 5 [facility] STIMULATI INC INC NG HORMONE TSH PROSTATE G0103 [facility] CANCER 5 [facility] SCREENING INC INC ; PSA TEST BLOOD 04084 [facility] COUNT 5 [facility] COMPLETE INC INC AUTO&AUTO DIFRNTL WBC 25 10162 [facility] HYDROXY 5 [facility]OS[facility] INCLUDES INC INC FRACTIONS IF PERFORMED COLLECTIO 66008 [facility] N VENOUS 5 PHYSICIAN MARIBELL BLOOD S GROUP VENIPUNCT URE COMPREHEN 68411 [facility] SIVE 5 [facility] METABOLIC INC INC PANEL LIPID 87840 [facility] PANEL 5 [facility] INC INC DUP-SCAN 91571 [facility] C[facility] XTR VEINS 5 MEDICAL KEVIN IMAGING UNILATERA ASS L/LIMITED STUDY THERAPEUT 32916 [facility] IC 5 [facility] PROPHYLAC INC INC TIC/DX INJECTION SUBQ/IM PROTHROMB 52801 [facility] IN TIME 5 [facility] INC INC SEDIMENTA 03061 [facility] TION RATE 5 [facility] RBC INC INC NON-AUTOM ATED FIBRIN 00613 [facility] CARRANZAON DGRADJ 5 [facility] PRODUCTS INC INC D-DIMER QUAL/SEMI ROLANDO COMPREHEN 61940 [facility] CARRANZAON SIVE 5 [facility] METABOLIC INC INC PANEL COLLECTIO 12828 [facility] N VENOUS 5 [facility] BLOOD INC INC VENIPUNCT URE THROMBOPL 37759 [facility] ASTIN 5 [facility] TIME INC INC PARTIAL PLASMA/WH OLE BLOOD BLOOD 09808 [facility] SOLAN[facility] COUNT 5 [facility] COMPLETE INC INC AUTO&AUTO DIFRNTL WBC BLOOD 08422 [facility] COUNT 4 [facility] COMPLETE INC INC AUTO&AUTO DIFRNTL WBC IM ADM 22508 [facility] PRQ ID 4 [facility] SUBQ/IM INC INC NJXS 1 VACCINE COMPREHEN 51398 [facility] SIVE 4 [facility] METABOLIC INC INC PANEL TDAP 93583 [facility] VACCINE 7 4 [facility] YRS/> IM INC INC CULTURE 57954 [facility] BACTERIAL 4 [facility] BLOOD INC INC AEROBIC W/ID ISOLATES RADEX 41004 [facility] FOREARM 2 4 [facility] VIEWS INC INC THERAPEUT 14990 [facility] IC 4 [facility] INJECTION [place] [address] [facility] INFUSION 4 [facility] THERAPY/P INC INC ROPHYLAXI S /DX 1ST TO 1 HR LARYNGOSC 98176 [place] OPY 4 MEDICAL ALEJANDRE FLEXIBLE SERV DIAGNOSTI FOUNDATIO C N RADIOLOGI 39813 [facility] C EXAM 4 MEDICAL EVELINE CHEST 2 IMAGING VIEWS ASS FRONTAL&L ATERAL ECG 30838 [facility] ROUTINE 4 MACY MARIBELL ECG EMERGENCY W/LEAST PHYS 12 LDS I&R ONLY RADEX 08033 [place] NICKELS HAND 4 MEDICAL JACKLYN MINIMUM 3 SERV VIEWS FOUNDATIO Encounters Encounter Start End Date Code Location Performer Type Date OFFICE 82025 [facility] 7 7 HEALTH T VISIT SOLUTIONS 25 IN MINUTES OFFICE 59299 [facility] 7 7 HEALTH T VISIT SOLUTIONS 15 IN MINUTES OFFICE 38983 [facility] 7 7 HEALTH T VISIT SOLUTIONS 25 IN MINUTES OFFICE 54372 [facility] 6 6 HEALTH T VISIT SOLUTIONS 15 IN MINUTES OFFICE 76226 [facility] 6 6 HEALTH T VISIT SOLUTIONS 15 IN MINUTES OFFICE 69812 CLARISSA ALCARAZ OUTPATIEN 6 6 MEDICAL T VISIT SERV 15 FOUNDATIO MINUTES N EMERGENCY 93655 CLARISSA SALLIE 6 6 MEDICAL ADRIEN DEPARTMEN SERV T VISIT FOUNDATIO HIGH/URGE N NT SEVERITY EMERGENCY 20883 [facility] DEPT 6 6 [facility] VISIT INC HIGH SEVERITY& THREAT [facility] - 6 6 [facility] T OFFICE 08391 [place] 6 6 [facility] T VISIT URGENT 15 TREAT MINUTES [facility] - 6 6 [facility] T OFFICE 30944 [place] [facility] 6 6 [facility] T VISIT URGENT 25 TREAT MINUTES [facility] - 5 5 [facility] T OFFICE 96591 [place] [place] 5 5 [facility] T VISIT URGENT 25 TREAT MINUTES OFFICE 59522 [facility] OUTPATIEN 5 5 [facility] T VISIT S GROUP 25 MINUTES [facility] - 5 5 [facility] T OFFICE 92930 [facility] OUTPATI[facility] 5 5 [facility] T VISIT S GROUP 15 MINUTES [facility] - 5 5 [facility] INC T EMERGENCY 75151 [facility] JORDAN 5 5 [facility] T VISIT P MODERATE SEVERITY HOSPITAL [facility] - 5 5 [facility] OUTPATIEN [facility] EMERGENCY 18141 [facility] 5 5 [facility] T VISIT LOW/MODER [facility]VERITY HOSPITAL RUSS - 4 4 [facility] OUTPATIEN [facility] EMERGENCY 93254 [facility] JORDAN 4 4 [facility] T VISIT P MODERATE SEVERITY OFFICE 64821 CLARISSA MOTNERO OUTPATIEN 4 4 KAYLEN ALEJANDRE T OTF 45 SERV MINUTES FOUNDATIO N EMERGENCY 41944 [facility] DEPT 4 4 [facility] VISIT EMERGENCY HIGH PHYS SEVERITY& THREAT FUN OFFICE 94239 [facility] RAYO OUTPATISONNY 4 4 SHER[facility] VANESSA 30 MINUTES
--- OUTSIDE RECORDS SUMMARY | 2017-03-31 21:38 | External Medical Summary Rpt ---
Author Author , Organization [employer] Address Unknown Phone Unavailable Care Team Providers Care Hands Assembler Name Role Phone [employer] Unavailable Unavailable INC, [employer] Unavailable Unavailable INC, [employer] MONTERO ALEJANDRE, MONTERO Unavailable Unavailable ALEJANDRE BEINEKE EVELINE, BEINEKE Unavailable Unavailable EVELINE KIERAN, KIERAN Unavailable Unavailable ROLDAN ALL, ROLDAN ALL Unavailable Unavailable SALLIE ADRIEN, SALLIE Unavailable Unavailable ADRIEN [facility] Unavailable Unavailable SERVICE, [facility] Unavailable Unavailable SERVICE, [facility] RUBY KEVIN, Unavailable Unavailable RUBY KEVIN FALLS CAN, FALLS CAN Unavailable Unavailable NIKKI MARIBELL, NIKKI Unavailable Unavailable MARIBELL [facility] Unavailable Unavailable INC, [facility] Unavailable Unavailable HOSPITAL P, [facility], Unavailable Unavailable [facility] MAC, MAC Unavailable Unavailable MAC NAN, MAC Unavailable Unavailable NAN [facility] Un[facility], [facility] NURSE Unavailable Unavailable PRACTITIONER GR, [facility] NURSE PRACTITIONER GR [facility] Un[facility], [facility] JIMÉNEZ GILA, JIMÉNEZ GILA Unavailable Unavailable RONALDO, RONALDO Unavailable Unavailable ALINE JR DWI, ALINE Unavailable Unavailable JR DWI GIRMA SHERWIN, GIRMA Unavailable Unavailable SHERWIN GIRMA SHERWIN, GIRMA Unavailable Unavailable SHERWIN [facility] Unavailable Unavailable AMBULANCE SE, [facility] Unavailable Unavailable URGENT TREAT, [facility] NICKELS JACKLYN, NICKELS Unavailable Unavailable JACKLYN RENUSCH SHERWIN, RENUSCH Unavailable Unavailable SHERWIN [facility] Unavailable Unavailable EMERGENCY PHYS, [facility] Unavailable Unavailable SOLUTIONS IN, RACHAELKid Care Years IN Purpose Continuity of Care Document - [...] SEROUS HEALTH OTITIS SOLUTIONS MEDIA IN BILATERAL [id number] PAIN IN 01-13-2017 [facility] RIGHT LEG HEALTH SOLUTIONS IN [id number] PAIN IN 01-13-2017 [facility] LEFT LEG HEALTH SOLUTIONS IN [id number] SPRAIN RT 11-03-2016 [facility] ACROMIOCLAV [facility] ICULAR SOLUTIONS JOINT IN SUBSQT ENC [id number] PAIN IN 10-28-2016 [facility] UNSPECIFIED HEALTH SHOULDER SOLUTIONS IN [id number] CONTUSION 10-22-2016 [facility] OF RIGHT TECHNOLOGIE SHOULDER S INC INITIAL ENCOUNTER G4700 INSOMNIA 06-10-2016 [facility] 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 [id number] PAIN IN LEG 06-10-2016 [facility] UNSPECIFIED F[facility] D26425 ASHD TELLER 04-27-2016 [facility] ART SERV W/OTH FORMS [facility]OUNDATION ANGINA PECTORIS 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-25-2016 [facility] P WITH HYPERGLYCEM IA E119 TYPE 2 04-25-2016 [facility] NURSE DIABETES PRACTITIONE MELLITUS R GR WITHOUT COMPLICATIO NS E639 NUTRITIONAL 04-25-2016 [facility] NURSE DEFICIENCY PRACTITIONE R GR UNSPECIFIED E878 OTHER D/O 04-25-2016 [facility] NURSE OF PRACTITIONE ELECTROLYTE R GR AND FLUID BALANCE NEC I10 ESSENTIAL 04-25-2016 [facility] NURSE PRIMARY PRACTITIONE HYPERTENSIO R GR N I517 CARDIOMEGAL 04-25-2016 [facility] R079 CHEST PAIN 04-25-2016 [facility] UNSPECIFIED COUNTY AMBULANCE SE R112 NAUSEA WITH 04-25-2016 [facility] VOMITING [facility] UNSPECIFIED AMBULANCE SE R531 WEAKNESS 04-25-2016 [facility] AMBULANCE SE R61 GENERALIZED 04-25-2016 [facility] HYPERHIDROS AMBULANCE IS SE R7989 OTHER SPEC 04-25-2016 [facility] ABNORMAL [facility]BUL[facility] FINDINGS SERVICE BLOOD CHEMISTRY R9431 ABNORMAL 04-25-2016 [facility] ELECTROCARD SERV IOGRAM FOUNDATION Z452 ENCOUNTER 04-25-2016 [facility] VASCULAR ACCESS DEVICE Z720 TOBACCO USE 04-25-2016 [facility] P R01005 CELLULITIS 03-04-2016 [facility] LOWER LIMB URGENT TREAT M85053 PAIN IN 02-27-2016 [facility] LEFT THIGH [facility] INC M7989 OTHER 02-27-2016 [facility] SPECIFIED [facility]ICAL SOFT TISSUE IMAGING ASS DISORDERS R600 LOCALIZED 02-27-2016 [facility] 95675 DIAB W/O 07-30-2015 [facility] COMP TYPE [facility] II/UNS NOT URGENT STATED TREAT UNCNTRL 69208 HYPERTROPHY 07-30-2015 [facility] PROSTATE [facility] W/UR OBST & URGENT OTH LUTS TREAT 73043 URINARY 07-30-2015 [facility] FREQUENCY [facility] URGENT TREAT 6829 CELLULITIS 02-04-2015 [facility] PHYSICIANS OF GROUP UNSPECIFIED SITE 74023 OTHER 02-04-2015 [facility] FATIGUE INC 7823 EDEMA 02-04-2015 [facility] 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 V770 SCREENING 02-04-2015 [facility] DISORDER INC V7791 SCREENING 02-04-2015 [facility] FOR LIPOID PHYSICIANS DISORDERS GROUP V781 SCREENING 02-04-2015 [facility] OTHER&UNSPE PHYSICIANS CIFIED GROUP DEFICIENCY ANEMIA 7295 PAIN IN 12-06-2014 [place] SOFT MEDICAL TISSUES OF IMAGING ASS LIMB 99313 SWELLING OF 12-06-2014 [facility] LIMB [facility] INC 6826 CELLULITIS 12-05-2014 [facility] P EXCEPT FOOT V146 PERSONAL 12-05-2014 [facility] ALLERGY TO [facility] P ANALGESIC AGENT 42968 OPEN WOUND 10-24-2014 [facility] P COMPLICATED E8490 PLACE OF 10-24-2014 [facility] OCCURRENCE, [facility] P E8859 FALL FROM 10-24-2014 [facility] OTHER [facility] P TRIPPING OR STUMBLING 470 DEVIATED 10-18-2014 [facility] NASAL SERV SEPTUM FOUND[facility] 71493 ESOPHAGEAL 10-18-2014 [facility] REFLUX [facility] 98219 LARYNGEAL 09-22-2014 [facility] 66125 ASTHMA, 09-22-2014 [facility] U[facility]PEC[facility]IED [facility]GENCY , PHYS UNSPECIFIED STATUS 44541 SHORTNESS 09-22-2014 [place] OF [facility]ICAL IM[facility]ING ASS 72630 OTHER 09-22-2014 [facility] DYSPNEA AND N EMERGENCY PHYS RESPIRATORY ABNORMALITI ES 6824 CELLULITIS& 04-26-2014 GIRMA COURTNEY ABSCESS [place] HAND EX[place] FING[place] [address] CERTAIN 04-26-2014 GIRMA SHERWIN ADVERSE EFFECTS NEC [...] 17 17 17 FA 40 1 42 UT [address] TA UG BL ET ME 00 04 05 30 30 00 SO Ac TO 37 -2 -1 .0 00 PE ti VT 80 0- 2- 00 00 RS ve OL 01 20 20 53 OL 80 17 17 88 FA 5 16 UT TA LY RT RA DR TE UG 25 MG TA B FU 00 04 05 30 30 00 SO Ac RO 37 -2 -1 .0 00 PE ti SE 80 1- 2- 00 00 RS ve UT 20 20 20 54 DE 81 17 17 69 FA 0 98 UT [address] UG TA BL ET NO 00 04 05 20 30 00 SO Ac VO 16 -0 -0 .0 00 PE ti LI 91 8- 5- 00 00 RS ve N 83 20 20 53 70 71 17 17 88 FA -3 1 20 UT [address] UN UG IT /M L AL BR 00 03 05 60 30 00 SO Ac IL 18 -2 -0 .0 00 PE ti IN 60 7- 5- 00 00 RS ve TA 77 20 20 53 76 17 17 88 FA 90 0 [address] TA UG BL ET ME 23 03 05 60 30 00 SO Ac TF 15 -2 -0 .0 00 PE ti OR 50 7- 5- 00 00 RS ve UT 10 20 20 54 N 21 17 17 66 FA HC 0 47 UT L LY [address] MG UG TA BL ET AZ 00 04 05 6. 5 00 SO Ac IT 78 -0 -0 00 00 PE ti HR 11 3- 5- 0 00 RS ve OM 49 20 20 56 YC 66 17 17 04 FA IN 8 75 UT LY [address] MG UG TA BL ET VT 00 04 05 12 5 00 SO Ac OM 60 -0 -0 0. 00 PE ti ET 31 3- 5- 00 00 RS ve GARCIA 58 20 20 0 56 ZI 65 17 17 04 FA NE 8 77 UT -D LY M SY DR RU UG P UL 08 04 05 60 30 00 SO Ac TR 88 -1 -0 .0 00 PE ti A 16 0- 5- 00 00 RS ve CO 09 20 20 53 MF 00 17 17 88 FA OR 4 21 UT T LY 0. 5 DR ML UG SY RI NG E AT 00 04 05 30 30 00 SO Ac OR 37 -1 -0 .0 00 PE ti VA 83 4- 5- [address] 95 20 20 53 AT 30 17 17 88 FA IN [address] MG UG TA BL ET LI 68 04 05 30 30 00 SO Ac SI 18 -1 -0 .0 00 PE ti NO 00 4- 5- 00 00 RS ve VT 51 20 20 53 IL 70 17 17 88 FA 3 18 UT [address] UG TA BL ET BU 00 04 05 30 15 00 RO Ac VT 05 -1 -0 .0 00 SS ti EN 40 2- 5- 00 01 ve OR [address] PH 91 17 17 87 UG IN 3 54 S -N AL OX ON 8- 2 MG SL BU 50 03 04 15 7 00 RO Ac VT 38 -2 -1 .0 00 SS ti EN 30 3- 4- 00 01 ve OR [address] PH 79 17 17 61 UG IN 3 02 S -N AL OX ON 8- 2 MG SL ME 00 03 04 30 30 00 SO Ac TO 37 -2 -1 .0 00 PE ti VT 80 0- 4- 00 00 RS ve OL 01 20 20 53 OL 80 17 17 88 FA 5 16 UT TA LY RT RA DR TE UG 25 MG TA B AT 00 03 04 30 30 00 SO Ac OR 37 -1 -0 .0 00 PE ti VA 83 3- 7- [address] 95 20 20 53 AT 30 17 17 88 FA IN 5 [address] MG UG TA BL ET LI 68 03 04 30 30 00 SO Ac SI 18 -1 -0 .0 00 PE ti NO 00 3- 7- 00 00 RS ve VT 51 20 20 53 IL 70 17 17 88 FA 3 18 UT [address] UG TA BL ET ET 51 03 04 60 30 00 SO Ac OD 67 -1 -0 .0 00 PE ti OL 24 4- 7- 00 00 RS ve AC 01 20 20 55 80 17 17 87 FA 40 1 19 UT [address] TA UG BL ET CY 00 03 04 30 30 00 SO Ac CL 60 -1 -0 .0 00 PE ti OB 33 4- 7- 00 00 RS ve EN 07 20 20 55 ZA 82 17 17 87 FA VT 1 20 UT IN LY E 5 DR MG UG TA BL ET FU 00 03 04 30 30 00 SO Ac RO 37 -1 -0 .0 00 PE ti SE 80 5- 7- 00 00 RS ve UT 20 20 20 54 DE 81 17 17 69 FA 0 98 UT [address] UG TA BL ET BU 00 03 04 15 7 00 RO Ac VT 05 -1 -0 .0 00 SS ti EN 40 6- 7- 00 01 ve OR [address] PH 91 17 17 52 UG IN 3 11 S -N AL OX ON 8- 2 MG SL BU 50 03 03 15 7 00 RO Ac VT 38 -0 -3 .0 00 SS ti [...] 17 17 88 FA SY 8 21 UT RI LY N 0. DR 5 UG ML 28 GX 1/ 2" NO 00 03 03 20 30 00 SO Ac VO 16 -0 -2 .0 00 PE ti LI 91 1- 4- 00 00 RS ve N 83 20 20 53 70 71 17 17 88 FA -3 1 20 UT [address] UN UG IT /M L AL FL 00 03 03 16 30 00 SO Ac UT 05 -0 -2 .0 00 PE ti IC 43 1- 4- 00 00 RS ve 27 20 20 55 ON 08 01 17 76 FA E 9 53 UT VT LY OP DR 50 UG MC G SP RA Y DI 61 03 03 60 30 00 SO Ac CL 44 -0 -2 .0 00 PE ti OF 20 1- 4- 00 00 RS ve EN 10 20 20 55 AC 31 17 17 76 FA 0 54 UT SO LY D DR DR UG 75 MG TA B CE 16 03 03 14 14 00 SO Ac TI 57 -0 -2 .0 00 PE ti RI 10 1- 4- 00 00 RS ve ZI 40 20 20 55 NE 25 17 17 76 FA 0 55 UT HC LY L 10 DR UG MG TA BL ET TI 57 03 03 30 30 00 SO Ac ZA 66 -0 -2 .0 00 PE ti NI 40 1- 4- 00 00 RS ve DI 50 20 20 55 NE 31 17 17 76 FA 8 56 UT HC LY L 4 DR MG UG TA BL ET BU 00 03 03 15 7 00 RO Ac VT 05 -0 -2 .0 00 SS ti EN 40 2- 4- 00 01 ve OR [address] PH 91 17 17 33 UG IN 3 57 S -N AL OX ON 8- 2 MG SL ME 00 02 03 30 30 00 SO Ac TO 37 -1 -1 .0 00 PE ti VT 80 0- 0- 00 00 RS ve OL 01 20 20 53 OL 80 17 17 88 FA 5 16 UT TA LY RT RA DR TE UG 25 MG TA B AT 00 02 03 30 30 00 SO Ac OR 37 -1 -1 .0 00 PE ti VA 83 0- 0- [address] 95 20 20 53 AT 30 17 17 88 FA IN 5 [address] MG UG TA BL ET BR 00 02 03 60 30 00 SO Ac IL 18 -1 -1 .0 00 PE ti IN 60 0- 0- 00 00 RS ve TA 77 20 20 53 76 17 17 88 FA 90 0 [address] TA UG BL ET LI 68 03 30 30 00 SO Ac SI 18 -1 -1 .0 00 PE ti NO 00 0- 0- 00 00 RS ve VT 51 20 20 53 IL 70 17 17 88 FA 3 18 UT [address] UG TA BL ET FU 02 03 30 30 00 SO Ac RO 37 -1 -1 .0 00 PE ti SE 80 0- 0- 00 00 RS ve UT 20 20 20 54 DE 81 17 17 69 FA 0 98 UT [address] UG TA BL ET CI 00 02 03 30 30 00 SO Ac TA 37 -1 -1 .0 00 PE ti LO 86 0- 0- 00 00 RS ve VT 23 20 20 54 AM 20 17 17 22 FA 5 33 UT HB LY R 20 DR UG MG TA BL ET MO 08 02 03 60 30 00 SO Ac NO 88 -1 -1 .0 00 PE ti JE 16 0- 0- [address] 20 20 53 23 17 17 88 FA SY 1 21 UT RI LY NG E DR 0. UG 5 ML ME 23 02 03 60 30 00 SO Ac TF 15 -1 -1 .0 00 PE ti OR 50 4- 0- 00 00 RS ve UT 10 20 20 54 N 21 17 17 66 FA HC 0 47 UT L LY [address] MG UG TA BL ET LI 68 02 30 30 00 SO Ac SI 18 -1 -0 .0 00 PE ti NO 00 2- 3- 00 00 RS ve VT 51 20 20 53 IL 70 17 17 88 FA 3 18 UT [address] UG TA BL ET ME 00 02 30 30 00 SO Ac TO 37 -1 -0 .0 00 PE ti VT 80 3- 3- 00 00 RS ve OL 01 20 20 53 OL 80 17 17 88 FA 5 16 UT TA LY RT RA DR TE UG 25 MG TA B FU 00 02 30 30 00 SO Ac RO 37 -1 -0 .0 00 PE ti SE 80 3- 3- 00 00 RS ve UT 20 20 20 54 DE 81 17 17 69 FA 0 98 UT [address] UG TA BL ET NO 00 02 20 30 00 SO Ac VO 16 -1 -0 .0 00 PE ti LI 91 3- 3- 00 00 RS ve N 83 20 20 53 70 71 17 17 88 FA -3 1 20 UT [address] UN UG IT /M L AL MO 08 02 60 30 00 SO Ac NO 88 -1 -0 .0 00 PE ti JE 16 3- 3- [address] 20 20 53 23 17 17 88 FA SY 1 21 UT RI LY NG E DR 0. UG 5 ML AT 00 02 30 30 00 SO Ac OR 37 -1 -0 .0 00 PE ti VA 83 2- 3- [address] 95 20 20 53 AT 30 17 17 88 FA IN [address] MG UG TA BL ET BR 00 12 01 60 30 00 SO Ac IL 18 -2 -2 .0 00 PE ti IN 60 9- 0- 00 00 RS ve TA 77 20 20 53 76 16 17 88 FA 90 0 [address] TA UG BL ET ME 23 12 01 60 30 00 SO Ac TF 15 -2 -2 .0 00 PE ti OR 50 9- 0- 00 00 RS ve UT 10 20 20 54 N 21 16 17 66 FA HC 0 47 UT L LY [address] MG UG TA BL ET LI 57 12 01 30 30 00 SO Ac SI 23 -1 -0 .0 00 PE ti NO 70 2- 9- 00 00 RS ve VT 05 20 20 53 IL 79 16 17 88 FA 9 18 UT [address] UG TA BL ET TR 57 12 01 60 15 00 SO Ac AM 66 -1 -0 .0 00 PE ti AD 40 4- 9- 00 00 RS ve OL 37 20 20 55 71 16 17 10 FA HC 8 21 UT L LY 50 DR MG UG TA BL ET DI 16 12 60 30 00 SO Ac CL 57 -1 -0 .0 00 PE ti OF 10 4- 9- 00 00 RS ve EN 20 20 20 55 AC 11 16 17 10 FA 1 28 UT SO LY D EC DR UG 75 MG TA B NO 00 12 20 30 00 SO Ac VO 16 -1 -0 .0 00 PE ti LI 91 2- 9- 00 00 RS ve N 83 20 20 53 70 71 16 17 88 FA -3 1 20 UT [address] UN UG IT /M L AL MO 08 12 60 30 00 SO Ac NO 88 -1 -0 .0 00 PE ti JE 16 2- 9- [address] 20 20 53 23 16 17 88 FA SY 1 21 UT RI LY NG E DR 0. UG 5 ML ME 00 12 30 30 00 SO Ac TO 37 -1 -0 .0 00 PE ti VT 80 2- 9- 00 00 RS ve OL 01 20 20 53 OL 80 16 17 88 FA 5 16 UT TA LY RT RA DR TE UG 25 MG TA B FU 00 12 30 30 00 SO Ac RO 37 -1 -0 .0 00 PE ti SE 80 2- 9- 00 00 RS ve UT 20 20 20 54 DE 81 16 17 69 FA 0 98 UT [address] UG TA BL ET CI 00 10 15 30 30 00 SO Ac TA 37 -1 -0 .0 00 PE ti LO 86 2- 9- 00 00 RS ve VT 23 20 20 54 AM 20 16 17 22 FA 5 33 UT HB LY R 20 DR UG MG TA BL ET AT 00 12 30 30 00 SO Ac OR 37 -1 -0 .0 00 PE ti VA 83 2- 9- [address] 95 20 20 53 AT 30 16 17 88 FA IN [address] MG UG TA BL ET Immunization Name Date Route CVX Reacti Commen Provid Is Given on t er Refuse d TDAP CARRANZA No VACCIN 2014 ON [facility] E 7 HOSP YRS/> INC IM Procedures Procedure DOS Code Location Performer Comment SHOULDER L3650 [facility] 6 TECHNOLOG TECHNOLOG FIG 8 IES INC IES INC ABDUCT RESTRAINE R PREFAB ECHO 42130 CLARISSA JIMÉNEZ GILA TTHRC R-T 6 MEDICAL 2D SERV W/WOM-MOD FOUNDATIO E COMPL N SPEC&COLR D CATH 36184 CLARISSA RONALDO PLACEMENT 6 MEDICAL & NJX SERV CORONARY FOUNDATIO ART ANGIO N IMG S&I FIBRIN 75146 [facility] DGRADJ 6 [facility] PRODUCTS INC INC D-DIMER QUAL/SEMI ROLANDO ECG 18334 [facility] MIRELES JR ROUTINE 6 [facility] W/LEAST P 12 LDS I&R ONLY THERAPEUT 90017 [facility] IC 6 [facility] INJECTION INC INC IV PUSH EACH NEW DRUG INITIAL 61015 [facility] 6 NURSE CARE/DAY PRACTITIO 50 NER GR MINUTES ECG 83469 [facility] ROUTINE 6 [facility] ECG INC INC W/LEAST 12 LDS TRCG ONLY W/O I&R CRITICAL 49203 [facility] 6 PHYSICIAN SHERWIN ILL/INJUR S, [facility] ED PATIENT INIT 30-74 MIN AMB A0427 [facility] 6 AMBULANCE AMBULANCE ALS SERVICE SERVICE EMERGENCY TRANSPORT LEVEL 1 THER 44265 [facility] PROPH/DX 6 [facility] NJX IV INC INC PUSH SINGLE/1S T SBST/DRUG RADIOLOGI 01696 [place] [facility] C 6 MEDICAL EXAMINATI IMAGING ON CHEST ASS [place] FRONTAL COMPREHEN 71829 [facility] SIVE 6 [facility] METABOLIC INC INC PANEL CRITICAL 98330 [facility] 6 PHYSICIAN SHERWIN ILL/INJUR S, [facility] ED PATIENT ADDL 30 MIN INJECTION J2405 [facility] 6 [facility] ONDANSETR INC INC ON HCL PER 1 MG CREATINE 57248 [facility] KINASE 6 [facility] [place] [place] [address] [facility] LIPASE 6 [facility] INC INC BLOOD 84910 [facility] COUNT 6 [facility] COMPLETE INC INC AUTO&AUTO DIFRNTL WBC CREATINE 50984 [facility] KINASE MB 6 MEM H[facility] FRACTION INC INC ONLY GROUND A0425 [facility] 6 AMBULANCE AMBULANCE [place] [address] TONE KINCAID NON-TUNNE 6 PHYSICIAN SHERWIN Bravo, [facility] CENTRAL VENOUS CATH AGE 5 YR/> [place] [address] [facility] TROPONIN 6 [facility] QUANTITAT INC INC SANIA DUP-SCAN 86277 [place] ROLDAN ALL XTR VEINS 6 MEDICAL IMAGING UNILATERA ASS L/LIMITED STUDY COLLECTIO 07099 [facility] N VENOUS 5 [facility] BLOOD URGENT VENIPUNCT TREAT URE BLOOD 78603 [facility] OCCULT 5 [facility] PEROXIDAS URGENT E ACTV TREAT QUAL FECES 1 [place] [address] [facility] FREE 5 MEM [facility] [place] [address] [facility] THYROID 5 [facility] STIMULATI INC INC NG HORMONE TSH PROSTATE G0103 [facility] CANCER 5 [facility] SCREENING INC INC ; PSA TEST BLOOD 39064 [facility] COUNT 5 [facility] COMPLETE INC INC AUTO&AUTO DIFRNTL WBC 25 57868 [facility] HYDROXY 5 [facility] H[facility]OS[facility] INCLUDES INC INC FRACTIONS IF PERFORMED COLLECTIO 55012 [facility] NIKKI N VENOUS 5 PHYSICIAN MARIBELL BLOOD S GROUP VENIPUNCT URE COMPREHEN 94588 [facility] SIVE 5 [facility] METABOLIC INC INC PANEL LIPID 36779 [facility] PANEL 5 [facility] INC INC DUP-SCAN 88781 [facility] CAREYRUBY XTR VEINS 5 MEDICAL KEVIN IMAGING [place] ASS L/LIMITED STUDY THERAPEUT 74554 [facility] IC 5 [facility] PROPHYLAC INC INC TIC/DX INJECTION SUBQ/IM PROTHROMB 78729 [facility] IN TIME 5 [facility] INC INC SEDIMENTA 19254 [facility] TION RATE 5 [facility] RBC INC INC NON-AUTOM ATED FIBRIN 15785 [facility] CARRANZAON DGRADJ 5 [facility] PRODUCTS INC INC D-DIMER QUAL/SEMI ROLANDO COMPREHEN 98928 RUSSMILES CARRANZAON SIVE 5 [facility] METABOLIC INC INC PANEL COLLECTIO 39535 [facility] N VENOUS 5 [facility] BLOOD INC INC VENIPUNCT URE THROMBOPL 85508 [facility] ASTIN 5 [facility] TIME INC INC PARTIAL PLASMA/WH OLE BLOOD BLOOD 49193 R[facility]SMILES SOLANO COUNT 5 [facility] COMPLETE INC INC AUTO&AUTO DIFRNTL WBC BLOOD 00058 [facility] COUNT 4 [facility] COMPLETE INC INC AUTO&AUTO DIFRNTL WBC IM ADM 62804 [facility] PRQ ID 4 [facility] SUBQ/IM INC INC NJXS 1 VACCINE COMPREHEN 45343 [facility] SIVE 4 [facility] METABOLIC INC INC PANEL TDAP 25178 [facility] VACCINE 7 4 [facility] YRS/> IM INC INC CULTURE 40401 [facility] BACTERIAL 4 [facility] BLOOD INC INC AEROBIC W/ID ISOLATES RADEX 46566 [facility] FOREARM 2 4 [facility] VIEWS INC INC THERAPEUT 42559 [facility] IC 4 [facility] INJECTION [place] [address] [facility] INFUSION 4 [facility] THERAPY/P INC INC ROPHYLAXI S /DX 1ST TO 1 HR LARYNGOSC 81782 [place] OPY 4 MEDICAL ALEJANDRE FLEXIBLE SERV DIAGNOSTI FOUNDATIO C N RADIOLOGI 86699 [facility] C EXAM 4 MEDICAL EVELINE CHEST 2 IMAGING VIEWS ASS FRONTAL&L ATERAL ECG 78589 [facility] ROUTINE 4 MACY MARIBELL ECG EMERGENCY W/LEAST PHYS 12 LDS I&R ONLY RADEX 23375 [place] NICKELS HAND 4 MEDICAL JACKLYN MINIMUM 3 SERV VIEWS FOUNDATIO Encounters Encounter Start End Date Code Location Performer Type Date OFFICE 76407 [facility] 7 7 HEALTH T VISIT SOLUTIONS 25 IN MINUTES OFFICE 80297 [facility] 7 7 HEALTH T VISIT SOLUTIONS 15 IN MINUTES OFFICE 87780 [facility] 7 7 HEALTH T VISIT SOLUTIONS 25 IN MINUTES OFFICE 86167 [facility] OUT[facility] 6 6 HEALTH T VISIT SOLUTIONS 15 IN MINUTES OFFICE 27379 [facility] 6 6 HEALTH T VISIT SOLUTIONS 15 IN MINUTES OFFICE 36231 CLARISSA ALCARAZ OUTPATIEN 6 6 MEDICAL T VISIT SERV 15 FOUNDATIO MINUTES N EMERGENCY 57761 CLARISSA SALLIE 6 6 MEDICAL ADRIEN DEPARTMEN SERV T VISIT FOUNDATIO HIGH/URGE N NT SEVERITY EMERGENCY 71064 [facility] DEPT 6 6 [facility] VISIT INC HIGH SEVERITY& THREAT [facility] - 6 6 [facility] OUTPATIEN INC T OFFICE 32602 [facility] 6 6 [facility] T VISIT URGENT 15 TREAT MINUTES HOSPITAL [facility] - 6 6 [facility] OUTPATIEN INC T OFFICE 71206 [facility] OUT[facility] 6 6 [facility] T VISIT URGENT 25 TREAT MINUTES HOSPITAL [facility] - 5 5 [facility] OUTPATIEN INC T OFFICE 97028 [facility] 5 5 [facility] T VISIT URGENT 25 TREAT MINUTES OFFICE 08919 [facility] NIKKI OUTPATIEN 5 5 [facility] T VISIT S GROUP 25 MINUTES [facility] - 5 5 [facility] T OFFICE 92250 [facility] NIKKI OUTPATIEN 5 5 [facility] T VISIT S GROUP 15 MINUTES [facility]OSP[facility] - 5 5 [facility] T EMERGENCY 63589 [facility] 5 5 [facility] T VISIT P MODERATE SEVERITY [facility] - 5 5 [facility] EMERGENCY [address]27 [facility] [address] [facility] T VISIT LOW/MODER SEVERITY HOSPITAL [facility] - 4 4 [facility] OUTPATIEN [facility] EMERGENCY 31057 [facility] 4 4 [facility] T VISIT P MODERATE SEVERITY OFFICE 17682 CLARISSA MONTERO OUTPATIEN 4 4 KAYLEN ALEJANDRE T OTF 45 SERV MINUTES [facility] EMERGENCY 66906 [facility] DEPT 4 4 [facility] VISIT EMERGENCY HIGH PHYS SEVERITY& THREAT FUN OFFICE 25802 GIRMA RAYO OUTPATISONNY 4 4 SHERWIN VANESSA 30 MINUTES
--- OUTSIDE RECORDS SUMMARY | 2017-03-31 21:39 | External Medical Summary Rpt ---
Demographics Preferred Language Ukrainian Marital Status Unknown Faith Affiliation Unknown Race Unknown Ethnic Group Unknown Author Author , Organization [employer] Address Unknown Phone Unavailable Purpose Continuity of Care Document - through 2016 Immunization No patient found.
--- OUTSIDE RECORDS SUMMARY | 2017-03-31 21:39 | External Medical Summary Rpt ---
Author Author Y[employer] Magdaleno, [employer] Organization [employer] Address Unknown Phone Unavailable
--- OUTSIDE RECORDS SUMMARY | 2017-03-31 21:39 | External Medical Summary Rpt ---
Demographics Preferred Language Grenadian Marital Status Unknown Orthodoxy Affiliation Unknown Race Unknown Ethnic Group Unknown Author Author , Organization [employer] Address Unknown Phone Unavailable Purpose Continuity of Care Document - through 2016 Immunization No patient found.
--- NOTE | 2017-03-31 21:55 | Emergency Room Report ---
History of Present Illness Time Seen by 2117 Presenting Problem in Triage Pt arrived:Walked Presenting Problem:PT C/O PAIN IN RIGHT SHOULDER X 2 WEEKS. PT RPTS HE'S A PT OF DR JORDAN, HAS BEEN ON ANTIBIOTICS PER DR JORDAN X 2 WEEKS. PT RPTS HE WAS TOLD TO COME TO THE ER IF HIS PAIN WASN'T GETTING ANY BETTER. PT RPTS HIS RIGHT SHOULDER "STARTED GETTING RED AND PUFFED UP ALL OF A SUDDEN TWO WEEKS AGO." PT RPTS HE "HURT THAT SHOULDER BACK IN THE FALL WHEN I TRIPPED AND FELL AT WORK. BUT THEN IT GOT BETTER. THEY XRAYED IT AFTER THAT HAPPENED AND THEY TOLD ME IT WASN'T BROKEN. I DID THERAPY AFTER THAT AND IT GOT BETTER." PT RPTS HE HAD A HEART CATH DONE HERE AT [facility] LAST WEEK, NO STENTS WERE PLACED. PT HAS FULL ROM IN RIGHT SHOULDER. 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 N Clinical Suspician of Infection? Y Mental Status: 1 - Regular (Normal Baseline) Sepsis Risk:Low Sepsis Risk Have you (or family members/close friends) recently traveled outside the [place]? N If Yes, where/when: Have you had exposure to infectious disease within the past month? N TB? Other? Specify: Source RN notes reviewed Exam Limitations no limitations Comment pt with progressive rt shoulder reddness and swelling consistent with abscess/ cellulitis which he was on abx as op but has spread and worsened and will be admitted as he has failed op treatment Cardiac Chest Pain Chest pain indicative of cardiac No Timing/Duration this evening Severity moderate ALLERGIES Coded Allergies: morphine (I-HIVES 04/25/16) Home Medications Reported Medications CEPHALEXIN (Keflex 500MG Capsule) 500 MG PO BID #30 Minocycline Hcl (Minocycline 100MG. Capsule) 100 MG PO BID #20 Citalopram Hydrobromide (Citalopram HBr) 10 MG PO BID #60 Metformin HCl (Metformin) 500 MG PO BID #60 BUPRENORPHINE HCL/NALOXONE HCL (Suboxone 12 MG-3 MG Sl Film) 1 TAB SL BID Metoprolol Tartrate (Metoprolol) 25 MG PO BID INSULIN NPH HUM/REG INSULIN HM (Novolin 70-30 100 Unit/Ml Vial) 40 UNITS SC AM INSULIN NPH HUM/REG INSULIN HM (Novolin 70-30 100 Unit/Ml Vial) 35 UNITS SC QHS Atorvastatin Calcium 80 MG PO DAILY #30 Lisinopril (Lisinopril 40MG) 40 MG PO DAILY #30 Furosemide 40 MG PO DAILY #30 Ticagrelor (Brilinta) 90 MG PO BID #60 Aspirin (Adult Low Dose Aspirin EC) 81 MG PO DAILIY Nicotine (Nicotine Patch) 21 MG TD DAILY #28 History Medical History General CAD? No Angina: No [place]: Yes Hypertension? Yes Hyperlipidemia? Yes CHF? Yes DVT? No PE? No COPD? No Asthma? No Anemia? No GERD? No Gastric ulcers? No GI Bleed? No Hernia? No Thyroid Problems? No Hypothyroidism? No CVA? No Seizures? No Diabetes? Yes Insulin Dependent: Yes Insulin Pump: No Home FSBS? No Renal Insuffiency? No End Stage Renal Disease? No UTI? No Stones? No BPH? No GB Disease: Yes Nephritic Syndrome? No Asplenia? No Hepatitis? No Sickle Cell Disease? No Arthritis? No Migraines? No Cataracts? No Glaucoma? No MRSA? No HIV? No TB? No Anxiety? No Depression? No Cancer? No Immunization Hx DT/Tetanus Refuses Flu Refused Pneumonia Refuses Surgical Hx Previous Surgery?Y GALLBLADDER Hernia Repair RIGHT KNEE REPAIR HEART CATH Social History Smoking Hx Smoker: Current Every Day Smoker Tobacco: No Type Cigarettes Packs/day 1 1/2 - 2 Packs Alcohol Alcohol: No Drugs none Review of Systems All Other Systems Reviewed and Negative Constitutional denies fever, weakness Eyes denies drainage ENT denies: ear discharge, epistaxis, throat pain. Respiratory denies cough, denies shortness of breath, denies wheezing Cardiovascular denies chest pain, denies palpitations, denies syncope Gastrointestinal see HPI, denies abdominal pain, denies diarrhea, nausea, denies vomiting Genitourinary denies: dysuria, frequency, hesitancy, hematuria. Musculoskeletal denies back pain, denies joint pain, denies joint swelling, denies neck pain Skin see HPI, denies rash, other Psychiatric/Neurological denies headache, denies seizure Physical Exam Vital Signs Vital Signs Date Time Temp Pulse Resp B/P Pulse O2 O2 Flow FiO2 Ox Delivery Rate 03/31 2115 98.3 70 18 139/66 95 - WBC >12,000 or <4,000 or 10% bands? 2 or more SIRS Criteria Met? B/P:127/73 MAP:90 Creatinine >2.0? UA output<0.5ml/kg/hr for 2 hrs? Platelet count >100,000? Lactate >2.0mmol/1? INR >1.2 or PTT > than 60 sec? Evidence of Organ Dysfunction? Provider documented clinical suspician of infection? Y Sepsis Criteria Count: 1 Sepsis Risk: Low Sepsis Risk General Appearance no apparent distress Eye Exam - bilateral eye PERRL, bilateral eye EOMI Ear, Nose, Throat normal ENT inspection Neck supple Respiratory Status No: respiratory distress. Lung Sounds bilateral: lungs clear. 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 No Results/Orders Laboratory Tests 03/31/172224: Lactic Acid Pending 03/31/172224: Sodium Pending, Potassium Pending, Chloride Pending, Carbon Dioxide Pending, BUN Pending, Creatinine Pending, Estimated Creat Clear Pending, Estimated GFR (MDRD) Pending, Glucose Pending, Calcium Pending, Total Bilirubin Pending, AST Pending, ALT Pending, Alkaline Phosphatase Pending, Total Protein Pending, Albumin Pending, Globulin Pending, Albumin/Globulin Ratio Pending, WBC Pending, RBC Pending, Hgb Pending, Hct Pending, MCV Pending, RDW Pending, Plt Count Pending, Gran % Pending, Gran # Pending, Lymphocytes % Pending, Eosinophils % Pending, Basophils % Pending, Lymphocytes # Pending, Eosinophils # Pending, Basophils # Pending, PUBS MCHC Pending, ESR Pending, MCH Pending Current Medication Orders Sig/Jaswinder Start time Last Medication Dose Route Stop Time Status Admin Sodium Chloride 10 ML PRN PRN 03/31 2130 AC IV 04/01 2118 Orders Procedure Date/time Status Decision to admit 03/31 2231 Active Decision to admit 03/31 2228 Active IV SALINE LOCK 03/31 2119 Active CULTURE, BLOOD 03/31 2119 Active LACTIC ACID 03/31 2119 Active SED RATE 03/31 2119 Active C-REACTIVE PROTEIN 03/31 2119 Active COMPLETE METABOLIC PANEL 03/31 2119 Active CBC WITH AUTO DIFF 03/31 2119 Active Departure Departure Time of Disposition 2230 Disposition Still a Patient Clinical Impression Primary Impression: Cellulitis of right upper extremity Secondary Impressions: IDDM (insulin dependent diabetes mellitus) Condition STABLE Referrals Ketan STOLL,Riky Landeros (Family) ED Critical Care Critical Care No at 2245
[2017-03-31] MEDS ORDERED: MINOCYCLINE 10100 MG PO (22:36)
[2017-03-31] MEDS ORDERED: KEFLEX 500MG.500 MG PO (22:36)
[2017-03-31 22:41] LABS: HEMOGLOBIN 15.6 g/dL (14.1-18.0); LYMPH # 3.4 K/mm3 (0.7-4.5)
[2017-03-31 23:05] VITALS: BP 142/77
[2017-03-31 23:12] VITALS: BP 142/71
[2017-04-01] VITALS (17 sets, daily range): BP systolic 116–176; BP diastolic 64–94
--- NOTE | 2017-04-01 07:10 | PHARMACY CLINIC NOTE ---
Patient Demographics Patient Demographics Admission date: 03/31/17 Date: 04/01/17 Time: 0710 Allergies Coded Allergies: morphine (I-HIVES 04/25/16) HEIGHT- FT: 6 IN: 1.00 K.915 VTE General Information Labs: Laboratory Tests 03/31 2225 Hematology Hgb (14.1 - 18.0 g/dL) 15.6 Hct (42.0 - 52.0 %) 46.5 Plt Count (142 - 424 K/mm3) 164 Disclaimer The following section includes nursing documentation that has been pulled in for pharmacy review. Patient's VTE score: 3 Patient's VTE Risk: LOW RISK Clinical trial participant? No VTE prophylaxis [id number] [id number] VTE prophylaxis ordered? Yes Type of prophylaxis/treatment: PORSCHE at 0710
[2017-04-01] MEDS ORDERED: ETODOLAC400 MG PO (07:23)
[2017-04-01] MEDS ORDERED: BUPRENORPHINE H1 TA2 SL (07:34)
--- NOTE | 2017-04-01 09:18 | HISTORY AND PHYSICAL REPORT ---
Demographics: Admit date: 04/01/17 Chief complaint: SHOULDER PAIN PRIMARY DIAGNOSIS: SHOULDER LIM Allergies: Coded Allergies: morphine (I-HIVES 04/25/16) History of present illness: History of present illness: 52-year-old male resented to the ER with RIGHT shoulder pain. Patient states he injured his shoulder during the winter at work and since then he's had pain that comes and goes. Patient states over the last couple weeks he has noticed decreased movement in his shoulder and increase in pain. Patient also reports history of IV drug use but has been clean for a year per patient. Patient admitted surgery and OrTHOconsult placed to evaluate RIGHT shoulder. Past medical history: Family HX Diabetes Yes CAD Yes Hypertension Yes Hyperlipidemia Yes Cancer Yes TB No Immunization HX DT/Tetanus 1-4 Years Ago Flu Refused Pneumonia Never Had TB Test in last year No General CAD? No Angina: No [place]: Yes Hypertension? Yes Hyperlipidemia? Yes CHF? Yes DVT? No PE? No COPD? No Asthma? No Anemia? No GERD? No Gastric ulcers? No GI Bleed? No Hernia? No Thyroid Problems? No Hypothyroidism? No CVA? No Seizures? No Diabetes? Yes Insulin Dependent: Yes Insulin Pump: No Home FSBS? No Renal Insuffiency? No UTI? No Stones? No BPH? No GB Disease: Yes Nephritic Syndrome? No Asplenia? No Hepatitis? No Sickle Cell Disease? No Arthritis? No Migraines? No Cataracts? No Glaucoma? No MRSA? No HIV? No TB? No Anxiety? No Depression? No Cancer? No Past Surgical HX Previous Surgery?Y GALLBLADDER Hernia Repair RIGHT KNEE REPAIR HEART CATH Current home meds: Reported Medications Minocycline Hcl (Minocycline 100MG. Capsule) 100 MG PO BID #20 Metoprolol Tartrate (Metoprolol) 25 MG PO BID Lisinopril (Lisinopril 40MG) 40 MG PO DAILY #30 TAB Furosemide 40 MG PO DAILY #30 TAB BUPRENORPHINE HCL/NALOXONE HCL (Buprenorphin-Naloxon 8-2 MG Sl) 1 TAB SL DAILY #26 Metformin HCl (Metformin) 500 MG PO BID #60 INSULIN NPH HUM/REG INSULIN HM (Novolin 70-30 100 Unit/Ml Vial) 40 UNITS SC AM INSULIN NPH HUM/REG INSULIN HM (Novolin 70-30 100 Unit/Ml Vial) 35 UNITS SC QHS Atorvastatin Calcium 80 MG PO DAILY #30 Ticagrelor (Brilinta) 90 MG PO BID #60 Aspirin (Adult Low Dose Aspirin EC) 81 MG PO DAILIY Nicotine (Nicotine Patch) 21 MG TD DAILY #28 Social Hx: Smoking HX Tobacco Yes Type Cigarettes Packs/day 2 1/2 - 3 PACKS Alcohol Alcohol: No Hx of Drug Use Drug Use? Yes Drug(s) of Choice: heroin Review of systems: Constitutional No: no symptoms reported. Respiratory No: no symptoms reported. Cardiovascular No no symptoms reported Gastrointestinal/Abdominal No no symptoms reported Genitourinary No: no symptoms reported. Musculoskeletal see HPI, joint pain, muscle pain. Skin No: no symptoms reported. Neurological No: see HPI. Psychiatric No: no symptoms reported. Exam: Lab data for last 24 hours: Laboratory Tests 04/01/17 0635: POC Glucose 110 03/31/172224: Lactic Acid 0.5 03/31/172224: Sodium 135 L, Potassium 4.1, Chloride 102, Carbon Dioxide 29, BUN 15, Creatinine 0.9, Estimated Creat Clear 176, Estimated GFR (MDRD) 89, Glucose 152 H, Calcium 8.8, Total Bilirubin 0.5, AST 30, ALT 78, Alkaline Phosphatase 78, Total Protein 8.1, Albumin 3.2 L, Globulin 4.9 H, Albumin/Globulin Ratio 0.7 L, WBC 8.9, RBC 4.96, Hgb 15.6, Hct 46.5, MCV 93.7, RDW 12.9, Plt Count 164, MPV 8.2, Gran % 52.8, Gran # 4.7, Lymphocytes % 38.0, Monocytes % 6.6, Eosinophils % 2.1, Basophils % 0.6, Lymphocytes # 3.4, Monocytes # 0.6, Eosinophils # 0.2, Basophils # 0.1, PUBS MCHC 33.5, ESR 33 H, MCH 31.4 H Microbiology 04/01 830 SHOULDER: Body Fluid Culture - RECD 04/01 830 SHOULDER: Gram Stain - RECD 03/31 2225 BLOOD: Anaerobic Blood Culture - RECD 03/31 2225 BLOOD: Aerobic Blood Culture - RECD 03/31 2225 BLOOD: Anaerobic Blood Culture - RECD 03/31 2225 BLOOD: Aerobic Blood Culture - RECD Admission vital signs: 1ST Vital Signs Result Date Time Pulse Ox 95 05/17 2115 B/P 139/66 03/31 2115 Temp 98.3 03/31 2115 Pulse 70 03/31 2115 Resp 18 03/31 2115 O2 Delivery ROOM AIR 03/31 2312 Exam General appearance: normal appearance, awake, no acute distress Eyes: normal exam ENT: normal exam Neck: normal inspection, full range of motion Cardiovascular: normal exam, regular rate & rhythm Respiratory: normal exam, clear to auscultation, no respiratory distress ABD: normal exam, normal bowel sounds, soft Genitourinary: normal voiding & quantity Extremities: normal exam, warm, right SHOULDER RED AND WARM TO TOUCH Musculoskeletal: joint pain, joint swelling, lIMITED RANGE OF MOTION IN right SHOULDER Skin: SMALL RED AREAON right SHOULDER Neuro: normal exam, alert, intact, oriented Plan: Problem List 1. Cellulitis of right upper extremity Plan: Consult ordered ortho and surgery History of IV drug use-with noted infection to RIGHT shoulder will order echo to evaluate vegetation. PICC line placement due to difficulty finding an IV access Ketan also seen patient today at 0918
--- NOTE | 2017-04-01 09:22 | RADIOLOGY REPORT PS360 ---
CHEST(2 VIEWS-NOT PORTABLE) HISTORY: cough ORDERING PHYSICIAN: Riky Aceves MD PATIENT AGE: 52 years COMPARISON: 04/25/2016 FINDINGS: The cardiomediastinal silhouette and pulmonary vascularity are within normal limits. There is patchy density in the right lung base may related to an area of atelectasis or patchy infiltrate. The remaining lungs are clear.. No acute bony abnormalities. IMPRESSION: Mild right basilar atelectasis or infiltrate
--- NOTE | 2017-04-01 10:17 | RADIOLOGY REPORT PS360 ---
CHEST-PORTABLE HISTORY: PICC LINE PLACEMENT ORDERING PHYSICIAN: Riky Aceves MD PATIENT AGE: 52 years COMPARISON: None available FINDINGS: PICC line has been inserted by left upper extremity approach with the tip in region of the superior vena cava in good position. Unremarkable cardiovascular structures. Previously described opacity in the right lung base has improved consistent with an area of atelectasis which has improved. There may be some residual airspace disease in the right lower lobe. IMPRESSION: 1. New placement of PICC line. 2. Previously noted density in the right lung base less apparent probably related to improving atelectasis. There may be some residual infiltrate/atelectatic change.
[2017-04-01 10:30] LABS: HEMOGLOBIN 15.7 g/dL (14.1-18.0); LYMPH % 42.3 % (10-50)
--- NOTE | 2017-04-01 12:43 | RADIOLOGY REPORT PS360 ---
PROCEDURE: 2-D M-mode and color Doppler study INDICATIONS FOR THE TEST: Chest pain COPD Heart Murmur Tobacco Smoking Palpitations Fatigue Syncope Edema Hypertension Diabetes Mellitus Rheumatic Fever SOB DAVIES Obesity Hyperlipidemia Family History HD Additional History CELLULITIS, IV DRUG USER HISTORY PATIENT INFORMATION HEIGHT: 73 WEIGHT:282 GENDER: Male B/P:139/66 2-D/M-MODE INTERPRETATION: 2-D MEASUREMENTS OBSERVED VALUES IN CMS Right Ventricular Dimension (RVDd) 3.4 Interventricular Septum (Thickness)(IVsd) 1.1 Left Ventricular Internal Dimensions(LVIDd) 5.8 Left Ventricular Posterior Wall (Thickness)(LVPWd) 1.0 Aortic Root 3.5 Aortic Cusp Separation 1.7 Left Atrial Dimensions (LAD) 2.8 2D 1. Left atrium is normal size, left ventricle is normal size, there is no concentric left ventricular hypertrophy, visually estimated ejection fraction 55% with no obvious regional wall motion abnormality. 2. The right atrium is normal size, right ventricle is mildly enlarged with normal contractility. 3.Aortic valve leaflets are not well visualized there is no aortic stenosis. 4. The mitral valve is structurally normal. 5. The pulmonic and tricuspid valve are not well visualized. 6. No significant pericardial effusion noted. DOPPLER INTERROGATION: Doppler interrogation of the aortic mitral and tricuspid valvular presence of trace mitral and tricuspid regurgitation, tricuspid regurgitant jet velocity insufficient for cannulation of the right ventricular systolic pressure. Tissue Doppler is inconclusive. CONCLUSION: 1. Normal left ventricular size, preserved left ventricular systolic function visually estimated ejection fraction 55% with no obvious regional wall motion abnormality. 2. Mildly enlarged right ventricle with normal contractility. 3. No significant pericardial effusion noted.
--- NOTE | 2017-04-01 13:01 | Anesthesia Record ---
Anesthesia Record Part II Discharge time: 1325 Destination: Same day surgery PACU nurse assessment review? Yes Patient is: Awake, Stable Anesthesia complications? No at 1300
--- NOTE | 2017-04-01 13:01 | Anesthesia Record ---
Anesthesia Record Part I Total IV fluids: 600 EBL (ml): 25 Urine Output: 0 (NOT MEASURED) B/P: 138/80 % SaO2: 93 Pulse: 77 Resps: 16 Temp: 97 Patient is: Drowsy, Nasal O2, Stable Stable to PACU at: 1255 at 1300
--- NOTE | 2017-04-01 16:12 | CONSULT NOTE ---
Consultation findings: Referring physician: Dr. Suh Date of examination: 04/01/17 Time of examination: 824 Exam findings: This 52-year-old male injured his right shoulder when he incurred a fall on outstretched hand in September 2016. He reports that he continued to have some pain and soreness in his superior posterior shoulder and several days ago, noticed fullness and erythema in the area. He has been admitted and placed on Bactrim antibiotics for a presumptive infection. The area has become increasingly fluctuant and I have been requested to evaluate the patient by the general surgery staff. The history and physical present on admission are reviewed as well. Examination shows the patient to be alert and cooperative. He has sensation in the right hand and axillary nerve distribution. There is no tenderness over the lateral acromion however there is fluctuance and induration just above and posterior to the clavicle and the AC joint itself. X-rays pending. Impression: Abscess versus noninfected bursitis supraclavicular area of the right shoulder. After discussion with the patient, I have aspirated 10 mL of turbid purulent material which is submitted for Gram stain and improved to be gram-positive for cocci. Crystals were requested and these have been sent out. Cell count and culture sensitivity pending as well. Based on this positive Gram stain and clinical findings, we will plan on taking the patient to the operating room for a formal I&D Recommendations: See above at 9677
--- NOTE | 2017-04-01 16:21 | Operative Note ---
Procedure/Operative Record Date of Procedure: 04/01/17 Pre-op diagnosis: Supraclavicular abscess Right shoulder Post-op diagnosis: Same Procedure performed: Incision and drainage of right shoulder supraclavicular abscess Surgeon: German Allan Anesthesia: General anesthetic Indications: 52-year-old male with abscess Description of procedure: Patient was given a general anesthetic placed in the supine position. The infected area was prepped and draped in the usual sterile fashion. After appropriate timeout, an incision approximately 3 cm in length was made directly over the pointing part of the abscess and additional purulent material drained. We then irrigated copiously with irrigation fluid and used a curette to remove subcutaneous necrotic fat. The infection tracked down to fascia the muscle but did not appear to involve the muscle itself. Fluid was submitted for culture and sensitivity and the patient was given Ancef 2 g after the specimen collected. After irrigation, the wound was packed with a wet-to-dry sponge and dressings were applied. The patient Was awakened And transported to the recovery room in satisfactory condition. EBL (ml): 10 at 9786
[2017-04-02 00:14] VITALS: BP 117/76
[2017-04-02 04:00] VITALS: BP 135/57
--- NOTE | 2017-04-02 06:53 | ACUTE CARE PROGRESS NOTE (QUA) ---
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 Cellulitis of right upper extremity Patient condition Improving Plan: continue current care This inpt stay is expected to cross 2 MNs from start of care Yes Comments: will need to determine wd care and abx as op at 0787
--- NOTE | 2017-04-02 06:53 | ACUTE CARE PROGRESS NOTE (QUA) ---
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 Cellulitis of right upper extremity Patient condition Improving Plan: continue current care This inpt stay is expected to cross 2 MNs from start of care Yes Comments: will need to determine wd care and abx as op at 0738
[2017-04-02 07:56] VITALS: BP 155/75
[2017-04-02 09:19] VITALS: BP 155/75
--- NOTE | 2017-04-02 11:56 | ACUTE CARE PROGRESS NOTE ---
Progress note Date: 04/02/17 Assessment: Postoperative day #1 status post IND of right shoulder abscess. The patient is awake alert no apparent distress. Neurologic examination of the right upper extremity is intact. The dressing is been changed per the nursing staff and wet -to-dry dressing repacked although the patient states not as deeply as was packed before. Gram stain showed gram-positive cocci. No growth to date. I spoke with Dr. Aceves on the patient he intends to discharge the patient today. The patient has a PICC line in. Impression: 1. Cellulitis of right upper extremity Plan: Discharge to home with either4 up Follow-up at the infusion clinic and appropriate antibiotic such as daptomycin IV or possibly Oral Antistaphylococcal antibiotic.We will plan on seeing him back in orthopedic clinic next week. Recommend daily wet-to-dry dressing changes with normal saline.It is okay to shower and allow shower water to run directly over the incision. at 7802
[2017-04-02 11:59] VITALS: BP 122/50
--- NOTE | 2017-04-02 15:11 | DISCHARGE SUMMARY STANDARD ---
Demographics Admit date: 04/01/17 Discharge date: 04/02/17 Comment: doing better History of present illness History of present illness 52-year-old male resented to the ER with RIGHT shoulder pain. Patient states he injured his shoulder during the winter at work and since then he's had pain that comes and goes. Patient states over the last couple weeks he has noticed decreased movement in his shoulder and increase in pain. Patient also reports history of IV drug use but has been clean for a year per patient. Patient admitted surgery and OrTHOconsult placed to evaluate RIGHT shoulder.pt was seen in office with cellulitis early abscess and tried on op abx but wound increased and required admit Hospital Course Hospital Course: pt did well with surg and iv abx and will be d/c and followed as op by ortho and me Discharge diagnoses Problem List 1. Cellulitis of right upper extremity 2. IDDM (insulin dependent diabetes mellitus) Medications Medications: Discharge meds are as noted. Follow up Follow up in office in: 7 DAYS with: Riky Aceves MD Comment: will follow pt at this time as op at 1518
[2017-04-02] MEDS ORDERED: ZYVOX600 MG PO (15:18)
[2017-04-02 16:00] VITALS: BP 122/73
[2017-04-02 21:18] LABS: BODY FLUID MONONUCLEAR 6 %; BODY FLUID POLY 94 %; BODY FLUID RBC 645000 /mm3; BODY FLUID WBC 774530 MM
== END 2017-04-02 16:20 | disposition home or self-care (01) | DRG 581 ==
LOC: ER 21:07 → 2ND 22:32 → ER 22:32 → 2ND 22:32
PROVIDERS: Emergency Medicine; Orthopaedic Surgery
PROC: 05HC33Z Insertion of Infusion Device into Left Basilic Vein, Percutaneous Approach (ICD-10-PCS; principal; 2017-04-01 12:00)
PROC: 0J9D0ZZ Drainage of Right Upper Arm Subcutaneous Tissue and Fascia, Open Approach (ICD-10-PCS; principal; 2017-04-01 12:00)
DX: L03.113 Cellulitis of right upper limb (principal); I10 Essential (primary) hypertension; B95.62 Methicillin resistant Staphylococcus aureus infection as the cause of diseases classified elsewhere; E11.9 Type 2 diabetes mellitus without complications; Z79.4 Long term (current) use of insulin
CPT/HCPCS: C1751; J2405

== ENCOUNTER 2017-06-20 18:02 | Emergency (ER) | payer MEDICAID ==
[~2017-06-20] VITALS: Ht 185.4 cm; Wt 129.7 kg
[~2017-06-20 18:02] MED LIST changes: +ADULT LOW DOSE81 MG PO; +ATORVASTATIN CA80 MG PO; +BRILINTA90 M1 PO; +BUPRENORPHINE H1 TA2 SL; +ETODOLAC400 MG PO; +FUROSEMIDE 40MG40 M1 PO; +HABITROL21 MG/24 H TD; +LISINOPRIL40 MG PO; +METOPROLOL25 MG PO; +MINOCYCLINE 10100 MG PO; +ZYVOX600 MG PO
--- NOTE | 2017-06-20 18:16 | Emergency Room Report ---
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 Clinical Suspician of Infection? Mental Status: Sepsis Risk: Have you (or family members/close friends) recently traveled outside the [place]? If Yes, where/when: Have you had exposure to infectious disease within the past month? TB? Other? Specify: 52-year-old white male insulin-dependent diabetic is for injection. He developed redness and induration for the past 5 days. It had a WHITE HEAD thAT POPPED this morning. He had history of skin infection. He denies having fever chills shortness of breath chest pain palpitations nausea vomiting. Source patient, RN notes reviewed, family Exam Limitations no limitations ALLERGIES Coded Allergies: morphine (I-HIVES 04/01/17) Home Medications Active Scripts Linezolid (Zyvox TABLET) 600 MG PO BID #60 TAB Ref 1 Prov: 04/02/17 Reported Medications Lisinopril (Lisinopril 40MG) 40 MG PO DAILY #30 TAB Furosemide 40 MG PO DAILY #30 TAB BUPRENORPHINE HCL/NALOXONE HCL (Buprenorphin-Naloxon 8-2 MG Sl) 1 TAB SL DAILY #26 Metformin HCl (Metformin) 500 MG PO BID #60 INSULIN NPH HUM/REG INSULIN HM (Novolin 70-30 100 Unit/Ml Vial) 40 UNITS SC AM INSULIN NPH HUM/REG INSULIN HM (Novolin 70-30 100 Unit/Ml Vial) 35 UNITS SC QHS Atorvastatin Calcium 80 MG PO DAILY #30 Ticagrelor (Brilinta) 90 MG PO BID #60 Aspirin (Adult Low Dose Aspirin EC) 81 MG PO DAILIY History Medical History General CAD? No Angina: No NM: Yes Hypertension? Yes Hyperlipidemia? Yes CHF? Yes DVT? No PE? No COPD? No Asthma? No Anemia? No GERD? No Gastric ulcers? No GI Bleed? No Hernia? No Thyroid Problems? No Hypothyroidism? No CVA? No Seizures? No Diabetes? Yes Insulin Dependent: Yes Insulin Pump: No Home FSBS? No Renal Insuffiency? No End Stage Renal Disease? No UTI? No Stones? No BPH? No GB Disease: Yes Nephritic Syndrome? No Asplenia? No Hepatitis? No Sickle Cell Disease? No Arthritis? No Migraines? No Cataracts? No Glaucoma? No MRSA? No HIV? No TB? No Anxiety? No Depression? No Cancer? No Immunization Hx DT/Tetanus 1-4 Years Ago Flu Refused Pneumonia Refuses Surgical Hx Previous Surgery?Y GALLBLADDER Hernia Repair RIGHT KNEE REPAIR HEART CATH Family History Family Hx Diabetes Yes CAD Yes Hypertension Yes Hyperlipidemia Yes Cancer Yes TB No Social History Smoking Hx Packs/day 2 1/2 - 3 Packs Alcohol Alcohol: No Review of Systems All Other Systems Reviewed and Negative Constitutional no symptoms reported Eyes no symptoms reported ENT no symptoms reported. Respiratory no symptoms reported Cardiovascular no symptoms reported Gastrointestinal no symptoms reported Genitourinary no symptoms reported. Musculoskeletal no symptoms reported Skin rash Psychiatric/Neurological no symptoms reported Physical Exam Vital Signs Vital Signs Date Time Temp Pulse Resp B/P Pulse O2 O2 Flow FiO2 Ox Delivery Rate 06/20 1807 98.1 76 18 153/78 97 - WBC >12,000 or <4,000 or 10% bands? 2 or more SIRS Criteria Met? B/P: MAP: Creatinine >2.0? UA output<0.5ml/kg/hr for 2 hrs? Platelet count >100,000? Lactate >2.0mmol/1? INR >1.2 or PTT > than 60 sec? Evidence of Organ Dysfunction? Provider documented clinical suspician of infection? Sepsis Criteria Count: Sepsis Risk: General Appearance normal appearance, WD/WN Eye Exam - bilateral eye normal exam, bilateral eye PERRL, bilateral eye EOMI Ear, Nose, Throat hearing grossly normal, normal ENT inspection Neck normal inspection, non-tender, supple, full range of motion Respiratory Status Yes: trachea midline, chest symmetrical, non tender chest. No: respiratory distress. Lung Sounds bilateral: normal breath sounds, lungs clear. 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 No Departure Departure Time of Disposition 1811 Disposition DC Home or Self Care(routine) Clinical Impression Primary Impression: Cellulitis of left thigh Secondary Impressions: IDDM (insulin dependent diabetes mellitus) Condition STABLE Referrals Ketan STOLL,Riky Landeros (PCP) Additional Instructions I discussed with the patient THE NEED FOR LOOSE FITING CLOSE AND NO MORE SQUEEZING OF THE INFECTED AREA. 2- REST AND ELEVATION OF THE AFFECTED LIMB. 3- WARM COMPRESSES. 4- BACTRIM DS PO BID 5- DIABETIC DIET AND CONTROL. 6- OBSERVE FOR FEVER AND VOMITING TO RETURN. 7- F/U WITH PCP IN 2 DAYS Discharge Counseling Counseled pt/family regarding diagnosis, medications/RX, home care, follow up needs ED Critical Care Critical Care No If Critical Care minutes are documented, the time involved in the performance of seperately reportable procedures was not counted toward critical care time documented. I directly delivered medical care to this critically ill and/or injured patient. Timely evaluation and treatment was necessary to address the significant organ system(s) dysfunction present in this patient. at 1816
[2017-06-20] MEDS ORDERED: MOTRIN 600MG.600 MG PO (18:21)
[2017-06-20] MEDS ORDERED: BACTRIM DS 8001 TA1 PO (18:21)
[2017-06-20 18:26] VITALS: BP 153/78
--- OUTSIDE RECORDS SUMMARY | 2017-06-21 19:36 | External Medical Summary Rpt ---
Author Author , YOSELIN WYATT Address Unknown Phone [email or web address] Care Team Providers Care Case Finisher Name Role Phone [employer] Unavailable Unavailable INC, [employer] Unavailable Unavailable INC, [employer] MONTERO ALEJANDRE, MONTERO Unavailable Unavailable ALEJANDRE BEINEKE EVELINE, BEINEKE Unavailable Unavailable EVELINE KIERAN, KIERAN Unavailable Unavailable ROLDAN, ROLDAN Unavailable Unavailable ROLDAN ALL, ROLDAN ALL Unavailable Unavailable SALLIE ADRIEN, SALLIE Unavailable Unavailable ADRIEN [facility] Unavailable Unavailable SERVICE, [facility] M[facility]TH[facility] COMMUN[facility] PROFESSIONAL, MIRTHA Unavailable Unavailable COMMUNICATIONS PROFESSIONAL RUBY KEVIN, Unavailable Unavailable RUBY KEVIN FALLS CAN, FALLS CAN Unavailable Unavailable FRYMAN, FRYMAN Unavailable Unavailable NIKKI, NIKKI Unavailable Unavailable NIKKI MARIBELL, NIKKI Unavailable Unavailable MARIBELL [facility] Unavailable Unavailable INC, [facility] Unavailable Un[facility] P, [facility], Unavailable Unavailable [facility] MAC, MAC Unavailable Unavailable MAC NAN, MAC Unavailable Unavailable NAN [facility], [facility] NURSE Unavailable Unavailable PRACTITIONER GR, KMSF NURSE PRACTITIONER [facility] Un[facility] JIMÉNEZ GILA, JIMÉNEZ GILA Unavailable Unavailable RONALDO, RONALDO Unavailable Unavailable GIRMA SHERWIN, GIRMA Unavailable Unavailable SHERWIN GIRMA SHERWIN, GIRMA Unavailable Unavailable SHERWIN MERHAR GAR, MERHAR Unavailable Unavailable GAR [facility] Unavailable Unavailable AMBULANCE SE, [facility] Unavailable Unavailable AMBULANCE SE, [facility] AMBULANCE [facility] Unavailable Unavailable URGENT TREAT, [facility] NICKELS JACKLYN, NICKELS Unavailable Unavailable JACKLYN [facility] Un[facility]available [facility], [facility] PETTEY, PETTEY Unavailable Unavailable RENUSCH SHERWIN, RENUSCH Unavailable Unavailable SHERWIN MINAL, MINAL Unavailable Un[facility] Unavailable Unavailable SOLUTIONS IN, [facility] Purpose Continuity of Care Document - 04-26-2014 through 2016 Problems Code Diagnosis DOS Provider Status [id number] CELLULITIS 04-09-2017 [facility] E119 TYPE 2 04-06-2017 [facility] MELLITUS INC WITHOUT COMPLICATIO NS E785 HYPERLIPIDE 04-06-2017 [facility] UNSPECIFIED INC I10 ESSENTIAL 04-06-2017 [facility] HYPERTENSIO INC N 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 Z720 TOBACCO USE 04-06-2017 [facility] [id number] CELLULITIS 04-01-2017 [facility] UPPER LIMB GROUP R05 COUGH 04-01-2017 [facility] R918 OTHER 04-01-2017 [facility] NONSPECIFIC [facility] ABNORMAL IMAGING ASS FINDING OF LUNG FIELD Z452 ENCOUNTER 04-01-2017 [facility] VASCULAR ACCESS DEVICE B9562 METHICILLIN 03-31-2017 [facility] STAPH INF INC CAUSE DZ CLASS ELSW E118 TYPE 2 03-31-2017 [facility], MELLITUS PLLC W/UNS COMPLICATIO NS Z794 ASSISTED 03-31-2017 [facility] CURRENT USE PHYSICIANS, OF INSULIN PLLC I208 OTHER FORMS 03-25-2017 [facility] ANGINA PH[facility]ICIANS PECTORIS GROUP 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-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 W/OTH FORMS GROUP ANGINA PECTORIS C49404 NUCLAD [place] 03-25-2017 [facility]REY [facility] W/UNS INC ANGINA PECTORIS R0602 SHORTNESS 03-25-2017 [facility] OF BREATH [facility] INC I119 HYPERTENSIV 03-23-2017 [facility] E HEART [facility] DISEASE INC WITHOUT HEART FAILURE I209 ANGINA 03-23-2017 [facility]ECT[facility]IS [facility] UNSPECIFIED INC I509 HEART 03-19-2017 [facility] FAILURE [facility] UNSPECIFIED INC 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 M545 LOW BACK 03-15-2017 [facility]IN [facility] INC R011 CARDIAC 03-10-2017 [facility] UNSPECIFIED GROUP R5383 OTHER 03-10-2017 [facility] FATIGUE PHYSICIANS GROUP J208 ACUTE 02-15-2017 [facility] BRONCHITIS [facility] DUE TO SOLUTIONS OTHER SPEC IN ORGANISMS H6503 ACUTE 01-13-2017 [facility] SEROUS [facility] OTITIS SOLUTIONS MEDIA IN BILATERAL J56369 PAIN IN 01-13-2017 [facility] RIGHT [facility]G [facility] SOLUTIONS IN G85173 PAIN IN 01-13-2017 [facility] LEFT LEG HEALTH SOLUTIONS IN [id number] SPRAIN RT 11-03-2016 [facility] ACROMIOCLAV [facility] ICULAR SOLUTIONS JOINT IN SUBSQT ENC D54778 PAIN IN 10-28-2016 [facility] UNSPECIFIED HEALTH SHOULDER SOLUTIONS IN [id number] CONTUSION 10-22-2016 [facility] RIGHT TECHNOLOGIE SHOULDER S INC INITIAL ENCOUNTER G4700 INSOMNIA 06-10-2016 [facility]NSPECIFIED SERV [facility]OUNDATION 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 [facility] E[facility]ATION SERV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 J15467 PAIN IN LEG 06-10-2016 [facility] UNSPECIFIED FOUNDATION 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-25-2016 [facility] [place] E639 NUTRITIONAL 04-25-2016 S NURSE DEFICIENCY PRACTITIONE R GR UNSPECIFIED E878 OTHER D/O 04-25-2016 [facility] NURSE OF PRACTITIONE ELECTROLYTE R GR AND FLUID BALANCE NEC I517 CARDIOMEGAL 04-25-2016 [facility] Y [facility] R079 CHEST PAIN 04-25-2016 [facility] AM[facility] SE R112 NAUSEA WITH 04-25-2016 [facility] VOMITING [facility] UNSPECIFIED AMBULANCE SE R531 WEAKNESS 04-25-2016 [facility] AMBULANCE SE R61 GENERALIZED 04-25-2016 [facility] HYPERHIDROS AMBULANCE IS SE R7989 OTHER SPEC 04-25-2016 [facility] ABNORMAL AMBUL[facility] FINDINGS SERVICE BLOOD CHEMISTRY R9431 ABNORMAL 04-25-2016 [facility] ELECTROCARD SERV IOGRAM FOUNDATION I99082 CELLULITIS 03-04-2016 [facility] LEFT [facility] LOWER LIMB URGENT TREAT C89125 PAIN IN 02-27-2016 [facility] LEFT [facility]IGH [facility] INC M7989 OTHER 02-27-2016 [facility] SPECIFIED [facility] SOFT TISSUE IMAGING ASS DISORDERS R600 LOCALIZED 02-27-2016 [facility] 34407 DIAB W/O 07-30-2015 [facility] COMP TYPE [facility] II/UNS NOT URGENT STATED TREAT UNCNTRL 64838 HYPERTROPHY 07-30-2015 [facility] PROSTATE [facility] W/UR OBST & URGENT OTH LUTS TREAT 31484 URINARY 07-30-2015 [facility] FREQUENCY [facility] URGENT TREAT 6829 CELLULITIS 02-04-2015 [facility] AND ABSCESS PHYSICIANS OF GROUP UNSPECIFIED SITE 73544 OTHER 02-04-2015 [facility] FATIGUE INC 7823 EDEMA 02-04-2015 [facility] 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 V770 SCREENING 02-04-2015 [facility] DISORDER INC V7791 SCREENING 02-04-2015 [facility] DISORDERS GROUP V781 SCREENING 02-04-2015 [facility] OTHER&UNSPE PHYSICIANS CIFIED GROUP DEFICIENCY ANEMIA 7295 PAIN IN 12-06-2014 [facility] SOFT MEDICAL TISSUES OF IMAGING ASS LIMB 46944 SWELLING OF 12-06-2014 [facility]B [facility] INC 6826 CELLULITIS 12-05-2014 [facility] AND [facility]SCESS [facility] P EXCEPT FOOT V146 PERSONAL 12-05-2014 [place] HISTORY OF [facility] ALLERGY TO HOSPITAL P ANALGESIC AGENT 44704 OPEN WOUND 10-24-2014 [place] P COMPLICATED E8490 PLACE OF 10-24-2014 [facility] OCCURRENCE, [facility] P E8859 FALL FROM 10-24-2014 [facility] OTHER [facility] SLIPPING [facility] P TRIPPING OR STUMBLING 470 DEVIATED 10-18-2014 [facility] NASAL SERV SEPTUM FOUNDATION 55609 ESOPHAGEAL 10-18-2014 [facility] REFLUX SERV FOUNDATION 51976 LARYNGEAL 09-22-2014 [facility] 31549 ASTHMA, 09-22-2014 [facility] UNSPECIFIED N EMERGENCY , PHYS UNSPECIFIED STATUS 43928 SHORTNESS 09-22-2014 [facility] 69458 OTHER 09-22-2014 [facility]GENCY PHYS RESPIRATORY ABNORMALITI ES 6824 CELLULITIS& 04-26-2014 GIRMA COURTNEY ABSCESS OF HAND EXCEPT FINGERS&[place] [address] CERTAIN 04-26-2014 GIRMA COURTNEY ADVERSE EFFECTS NEC OTHER E11.9 TYPE 2 DIABETES MELLITUS WITHOUT COMPLICATIO NS I21.4 NON-ST ELEVATION (NSTEMI) MYOCARDIAL INFARCTION 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 J45.909 UNSPECIFIED ASTHMA, UNCOMPLICAT ED K21.9 GASTRO-ESOP HAGEAL REFLUX DISEASE WITHOUT ESOPHAGITIS L03.113 CELLULITIS OF RIGHT UPPER LIMB L03.116 CELLULITIS OF LEFT LOWER LIMB R73.9 HYPERGLYCEM IA, UNSPECIFIED S40.011A CONTUSION OF RIGHT SHOULDER, INITIAL ENCOUNTER T14.8 OTHER INJURY OF UNSPECIFIED BODY REGION Allergies, Adverse Reactions, Alerts Clinical Alert Notifications Alert Diabetes: no eye exam in the last 365 days Diabetes: no influenza vaccine in the last 365 days Diabetes: no lipid panel in the last 365 days Diabetes: no urine protein screening in the last 365 days Member has >/= 3 hosp admit & >/= 1 ED visit in 365 days Medications Na ND Rx Da Fi Fi Am Da Di Ph RX Ph St me C No te ll ll ou ys ag ar # ys at rm s nt no ma ic us Or Da si cy ia de te s n re d FU 00 07 08 30 30 00 SO Ac RO 37 -1 -0 .0 00 PE ti SE 80 3- 4- 00 00 RS ve PA 21 20 20 56 DE 61 17 17 36 FA 0 11 PA [address] UG TA BL ET EA 91 07 08 30 30 00 SO Ac SY 23 -1 -0 .0 00 PE ti 70 3- 4- 00 00 RS ve CO 00 20 20 56 MF 10 17 17 60 FA OR 9 42 PA T LY 0. 5 DR ML UG SY RI NG E BU 00 07 07 34 22 00 RO Ac MA 05 -0 -2 .0 00 SS ti EN 40 6- 8- 00 01 ve OR [address] PH 91 17 17 91 UG IN 3 46 S -N AL OX ON 8- 2 MG SL BU 50 06 07 11 7 00 RO Ac MA 38 -2 -2 .0 00 SS ti EN 30 9- 1- 00 01 ve OR [address] PH 79 17 17 85 UG IN 3 19 S -N AL OX ON 8- 2 MG SL ME 00 06 07 60 30 00 SO Ac TO 37 -2 -2 .0 00 PE ti MA 80 8- 1- 00 00 RS ve OL 01 20 20 56 OL 80 17 17 45 FA 5 37 PA TA LY RT RA DR TE UG 25 MG TA B NO 00 06 07 20 30 00 SO Ac VO 16 -1 -0 .0 00 PE ti LI 91 4- 7- 00 00 RS ve N 83 20 20 53 70 71 17 17 88 FA -3 1 20 PA [address] UN UG IT /M L AL FR 99 06 07 50 25 00 SO Ac EE 07 -1 -0 .[address] 30 4- 7- 00 00 RS ve YL 70 20 20 53 E 82 17 17 88 FA LI 2 23 PA TE LY TE DR ST UG ST RI P BR 00 06 07 60 30 00 SO Ac IL 18 -1 -0 .0 00 PE ti IN 60 4- 7- 00 00 RS ve TA 77 20 20 53 76 17 17 88 FA 90 0 [address] TA UG BL ET FU 00 06 07 30 30 00 SO Ac RO 37 -1 -0 .0 00 PE ti SE 80 4- 7- 00 00 RS ve PA 21 20 20 56 DE 61 17 17 36 FA 0 11 PA [address] UG TA BL ET LI 68 06 07 30 30 00 SO Ac SI 18 -1 -0 .0 00 PE ti NO 00 4- 7- 00 00 RS ve MA 51 20 20 56 IL 70 17 17 59 FA 3 72 PA [address] UG TA BL ET AT 55 06 07 30 30 00 SO Ac OR 11 -1 -0 .0 00 PE ti VA 10 4- 7- [address] 12 20 20 56 AT 40 17 17 59 FA IN [address] MG UG TA BL ET ME 23 06 07 60 30 00 SO Ac TF 15 -1 -0 .0 00 PE ti OR 50 4- 7- 00 00 RS ve PA 10 20 20 56 N 21 17 17 59 FA HC 0 74 PA L LY [address] MG UG TA BL ET IN 57 06 07 30 30 00 SO Ac VICTORIA 51 -1 -0 .0 00 PE ti LI 50 4- 7- 00 00 RS ve N 17 20 20 56 SY 45 17 17 60 FA RI 9 42 PA N LY 0. 5 DR ML UG 31 GX " BU 00 05 06 45 30 00 RO Ac MA 05 -3 -2 .0 00 SS ti EN 40 0- 3- 00 01 ve OR [address] PH 91 17 17 43 UG IN 3 04 S -N AL OX ON 8- 2 MG SL ME 00 05 06 60 30 00 SO Ac TO 37 -2 -1 .0 00 PE ti MA 80 3- 6- 00 00 RS ve OL 01 20 20 56 OL 80 17 17 45 FA 5 37 PA TA LY RT RA DR TE UG 25 MG TA B BU 00 05 06 26 14 00 RO Ac MA 05 -1 -0 .0 00 SS ti EN 40 6- 9- 00 01 ve OR [address] PH 91 17 17 29 UG IN 3 70 S -N AL OX ON 8- 2 MG SL AT 00 05 06 30 30 00 SO Ac OR 37 -1 -0 .0 00 PE ti VA 83 5- 9- [address] 95 20 20 53 AT 30 17 17 88 FA IN [address] MG UG TA BL ET UL 08 03 20 60 30 00 SO Ac TR 88 -1 -0 .0 00 PE ti A 16 5- 9- 00 00 RS ve CO 09 20 20 53 MF 00 17 17 88 FA OR 4 21 PA T LY 0. 5 DR ML UG SY RI NG E LI 00 03 20 60 30 00 CL Ac NE 09 -2 -0 .0 00 IN ti ZO 38 0- 9- 00 00 IC ve LI 24 20 20 43 D 43 17 17 16 PH 60 4 30 AR 0 MA MG CY TA BL ET NO 00 03 20 20 30 00 SO Ac VO 16 -1 -0 .0 00 PE ti LI 91 0- 2- 00 00 RS ve N 83 20 20 53 70 71 17 17 88 FA -3 1 20 PA [address] UN UG IT /M L AL BR 00 03 20 60 30 00 SO Ac IL 18 -0 -0 .0 00 PE ti IN 60 8- 2- 00 00 RS ve TA 77 20 20 53 76 17 17 88 FA 90 0 [address] TA UG BL ET ME 23 03 20 60 30 00 SO Ac TF 15 -0 -0 .0 00 PE ti OR 50 8- 2- 00 00 RS ve PA 10 20 20 54 N 21 17 17 66 FA HC 0 47 PA L LY [address] MG UG TA BL ET NI 00 05 06 28 28 00 SO Ac CO 53 -1 -0 .0 00 PE ti TI 65 1- 2- 00 00 RS ve NE 89 20 20 56 68 17 17 36 FA 21 8 01 PA LY MG /2 DR 4H UG R PA TC H LI 68 05 30 30 00 SO Ac SI 18 -1 -0 .0 00 PE ti NO 00 1- 2- 00 00 RS ve MA 51 20 20 53 IL 70 17 17 88 FA 3 18 PA [address] UG TA BL ET FU 00 03 20 30 30 00 SO Ac RO 37 -1 -0 .0 00 PE ti SE 80 1- 2- 00 00 RS ve PA 21 20 20 56 DE 61 17 17 36 FA 0 11 PA [address] UG TA BL ET CE 00 05 06 30 10 00 SO Ac PH 09 -1 -0 .0 00 PE ti AL 33 2- 2- 00 00 RS ve EX 14 20 20 56 IN 70 17 17 37 FA 5 44 PA [address] UG CA PS UL E PA 65 05 06 20 10 00 SO Ac NO 86 -1 -0 .0 00 PE ti CY 20 2- 2- 00 00 RS ve CL 21 20 20 56 IN 10 17 17 37 FA E 5 45 PA [address] UG CA PS UL E BU 00 05 05 25 14 00 RO Ac MA 05 -0 -2 .0 00 SS ti EN 40 2- 6- 00 01 ve OR [address] PH 91 17 17 12 UG IN 3 07 S -N AL OX ON 8- 2 MG SL FR 99 05 05 50 25 00 SO Ac EE 07 -0 -2 .[address] 30 1- 6- 00 00 RS ve YL 70 20 20 53 E 82 17 17 88 FA LI 2 23 PA TE LY TE DR ST UG ST RI P BU 00 04 05 9. 5 00 RO Ac MA 05 -2 -1 00 00 SS ti EN 40 7- 9- 0 01 ve OR [address] PH 91 17 17 06 UG IN 3 97 S -N AL OX ON 8- 2 MG SL FU 00 04 05 30 30 00 SO Ac RO 37 -2 -1 .0 00 PE ti SE 80 1- 2- 00 00 RS ve PA 20 20 20 54 DE 81 17 17 69 FA 0 98 PA [address] UG TA BL ET ME 00 04 05 30 30 00 SO Ac TO 37 -2 -1 .0 00 PE ti MA 80 0- 2- 00 00 RS ve OL 01 20 20 53 OL 80 17 17 88 FA 5 16 PA TA LY RT RA DR TE UG 25 MG TA B ET 51 04 05 60 30 00 SO Ac OD 67 -1 -1 .0 00 PE ti OL 24 8- 2- 00 00 RS ve AC 01 20 20 56 80 17 17 17 FA 40 1 42 PA [address] TA UG BL ET MA 00 04 05 12 5 00 SO Ac OM 60 -0 -0 0. 00 PE ti ET 31 3- 5- 00 00 RS ve GARCIA 58 20 20 0 56 ZI 65 17 17 04 FA NE 8 77 PA -D LY M SY DR RU UG P UL 08 04 05 60 30 00 SO Ac TR 88 -1 -0 .0 00 PE ti A 16 0- 5- 00 00 RS ve CO 09 20 20 53 MF 00 17 17 88 FA OR 4 21 PA T LY 0. 5 DR ML UG SY RI NG E NO 00 04 05 20 30 00 SO Ac VO 16 -0 -0 .0 00 PE ti LI 91 8- 5- 00 00 RS ve N 83 20 20 53 70 71 17 17 88 FA -3 1 20 PA [address] UN UG IT /M L AL BR 00 03 05 60 30 00 SO Ac IL 18 -2 -0 .0 00 PE ti IN 60 7- 5- 00 00 RS ve TA 77 20 20 53 76 17 17 88 FA 90 0 [address] TA UG BL ET ME 23 03 05 60 30 00 SO Ac TF 15 -2 -0 .0 00 PE ti OR 50 7- 5- 00 00 RS ve PA 10 20 20 54 N 21 17 17 66 FA HC 0 47 PA L LY [address] MG UG TA BL ET AZ 00 04 05 6. 5 00 SO Ac IT 78 -0 -0 00 00 PE ti HR 11 3- 5- 0 00 RS ve OM 49 20 20 56 YC 66 17 17 04 FA IN 8 75 PA LY [address] MG UG TA BL ET BU 00 04 05 30 15 00 RO Ac MA 05 -1 -0 .0 00 SS ti EN 40 2- 5- 00 01 ve OR [address] PH 91 17 17 87 UG IN 3 54 S -N AL OX ON 8- 2 MG SL LI 68 04 05 30 30 00 SO Ac SI 18 -1 -0 .0 00 PE ti NO 00 4- 5- 00 00 RS ve MA 51 20 20 53 IL 70 17 17 88 FA 3 18 PA [address] UG TA BL ET AT 00 04 05 30 30 00 SO Ac OR 37 -1 -0 .0 00 PE ti VA 83 4- 5- [address] 95 20 20 53 AT 30 17 17 88 FA IN [address] MG UG TA BL ET BU 50 03 04 15 7 00 RO Ac MA 38 -2 -1 .0 00 SS ti EN 30 3- 4- 00 01 ve OR [address] PH 79 17 17 61 UG IN 3 02 S -N AL OX ON 8- 2 MG SL ME 00 03 04 30 30 00 SO Ac TO 37 -2 -1 .0 00 PE ti MA 80 0- 4- 00 00 RS ve OL 01 20 20 53 OL 80 17 17 88 FA 5 16 PA TA LY RT RA DR TE UG 25 MG TA B AT 00 03 04 30 30 00 SO Ac OR 37 -1 -0 .0 00 PE ti VA 83 3- 7- [address] 95 20 20 53 AT 30 17 17 88 FA IN [address] MG UG TA BL ET LI 68 03 04 30 30 00 SO Ac SI 18 -1 -0 .0 00 PE ti NO 00 3- 7- 00 00 RS ve MA 51 20 20 53 IL 70 17 17 88 FA 3 18 PA [address] UG TA BL ET ET 51 03 04 60 30 00 SO Ac OD 67 -1 -0 .0 00 PE ti OL 24 4- 7- 00 00 RS ve AC 01 20 20 55 80 17 17 87 FA 40 1 19 PA [address] TA UG BL ET CY 00 03 04 30 30 00 SO Ac CL 60 -1 -0 .0 00 PE ti OB 33 4- 7- 00 00 RS ve EN 07 20 20 55 ZA 82 17 17 87 FA MA 1 20 PA IN LY E 5 DR MG UG TA BL ET FU 00 03 04 30 30 00 SO Ac RO 37 -1 -0 .0 00 PE ti SE 80 5- 7- 00 00 RS ve PA 20 20 20 54 DE 81 17 17 69 FA 0 98 PA [address] UG TA BL ET BU 00 03 04 15 7 00 RO Ac MA 05 -1 -0 .0 00 SS ti [...] 17 17 88 FA SY 8 21 PA RI LY N 0. DR 5 UG ML 28 GX 1/ 2" BU 50 03 03 15 7 00 RO Ac MA 38 -0 -3 .0 00 SS ti EN 30 9- 1- 00 01 ve OR [address] PH 79 17 17 42 UG IN 3 62 S -N AL OX ON 8- 2 MG SL NO 00 03 03 20 30 00 SO Ac VO 16 -0 -2 .0 00 PE ti LI 91 1- 4- 00 00 RS ve N 83 20 20 53 70 71 17 17 88 FA -3 1 20 PA [address] UN UG IT /M L AL FL 00 03 03 16 30 00 SO Ac UT 05 -0 -2 .0 00 PE ti IC 43 1- 4- 00 00 RS ve 27 20 20 55 ON 09 17 17 76 FA E 9 53 PA MA LY OP DR 50 UG MC G SP RA Y DI 61 03 03 60 30 00 SO Ac CL 44 -0 -2 .0 00 PE ti OF 20 1- 4- 00 00 RS ve EN 10 20 20 55 AC 31 17 17 76 FA 0 54 PA SO LY D [address] DR UG 75 MG TA B CE 16 03 03 14 14 00 SO Ac TI 57 -0 -2 .0 00 PE ti RI 10 1- 4- 00 00 RS ve ZI 40 20 20 55 NE 25 17 17 76 FA 0 55 PA HC LY L 10 DR UG MG TA BL ET TI 57 03 03 30 30 00 SO Ac ZA 66 -0 -2 .0 00 PE ti NI 40 1- 4- 00 00 RS ve DI 50 20 20 55 NE 31 17 17 76 FA 8 56 PA HC LY L 4 DR MG UG TA BL ET BU 00 03 03 15 7 00 RO Ac MA 05 -0 -2 .0 00 SS ti EN 40 2- 4- 00 01 ve OR [address] PH 91 17 17 33 UG IN 3 57 S -N AL OX ON 8- 2 MG SL ME 00 02 03 30 30 00 SO Ac TO 37 -1 -1 .0 00 PE ti MA 80 0- 0- 00 00 RS ve OL 01 20 20 53 OL 80 17 17 88 FA 5 16 PA TA LY RT RA DR TE UG 25 MG TA B AT 00 02 03 30 30 00 SO Ac OR 37 -1 -1 .0 00 PE ti VA 83 0- 0- [address] 95 20 20 53 AT 30 17 17 88 FA IN [address] MG UG TA BL ET BR 00 02 03 60 30 00 SO Ac IL 18 -1 -1 .0 00 PE ti IN 60 0- 0- 00 00 RS ve TA 77 20 20 53 76 17 17 88 FA 90 0 [address] TA UG BL ET LI 68 02 03 30 30 00 SO Ac SI 18 -1 -1 .0 00 PE ti NO 00 0- 0- 00 00 RS ve MA 51 20 20 53 IL 70 17 17 88 FA 3 18 PA [address] UG TA BL ET FU 00 02 03 30 30 00 SO Ac RO 37 -1 -1 .0 00 PE ti SE 80 0- 0- 00 00 RS ve PA 20 20 20 54 DE 81 17 17 69 FA 0 98 PA [address] UG TA BL ET CI 03 30 30 00 SO Ac TA 37 -1 -1 .0 00 PE ti LO 86 0- 0- 00 00 RS ve MA 23 20 20 54 AM 20 17 17 22 FA 5 33 PA HB LY R 20 DR UG MG TA BL ET MO 06 16 03 60 30 00 SO Ac NO 88 -1 -1 .0 00 PE ti JE 16 0- 0- [address] 09 20 20 53 23 17 17 88 FA SY 1 21 PA RI LY NG E DR 0. UG 5 ML ME 07 01 03 60 30 00 SO Ac TF 15 -1 -1 .0 00 PE ti OR 50 4- 0- 00 00 RS ve PA 10 20 20 54 N 21 17 17 66 FA HC 0 47 PA L LY [address] MG UG TA BL ET LI 68 02 30 30 00 SO Ac SI 18 -1 -0 .0 00 PE ti NO 00 2- 3- 00 00 RS ve MA 51 20 20 53 IL 70 17 17 88 FA 3 18 PA [address] UG TA BL ET AT 00 02 30 30 00 SO Ac OR 37 -1 -0 .0 00 PE ti VA 83 2- 3- [address] 95 20 20 53 AT 30 17 17 88 FA IN [address] MG UG TA BL ET ME 00 02 30 30 00 SO Ac TO 37 -1 -0 .0 00 PE ti MA 80 3- 3- 00 00 RS ve OL 01 20 20 53 OL 80 17 17 88 FA 5 16 PA TA LY RT RA DR TE UG 25 MG TA B FU 00 02 30 30 00 SO Ac RO 37 -1 -0 .0 00 PE ti SE 80 3- 3- 00 00 RS ve PA 20 20 20 54 DE 81 17 17 69 FA 0 98 PA [address] UG TA BL ET NO 00 02 20 30 00 SO Ac VO 16 -1 -0 .0 00 PE ti LI 91 3- 3- 00 00 RS ve N 83 20 20 53 70 71 17 17 88 FA -3 1 20 PA [address] UN UG IT /M L AL MO 08 01 02 60 30 00 SO Ac NO 88 -1 -0 .0 00 PE ti JE 16 3- 3- [address] 09 20 20 53 23 17 17 88 FA SY 1 21 PA RI LY NG E DR 0. UG 5 ML BR 00 12 01 60 30 00 SO Ac IL 18 -2 -2 .0 00 PE ti IN 60 9- 0- 00 00 RS ve TA 77 20 20 53 76 16 17 88 FA 90 0 [address] TA UG BL ET ME 23 12 01 60 30 00 SO Ac TF 15 -2 -2 .0 00 PE ti OR 50 9- 0- 00 00 RS ve PA 10 20 20 54 N 21 16 17 66 FA HC 0 47 PA L LY [address] MG UG TA BL ET TR 57 12 01 60 15 00 SO Ac AM 66 -1 -0 .0 00 PE ti AD 40 4- 9- 00 00 RS ve OL 37 20 20 55 71 16 17 10 FA HC 8 21 PA L LY 50 DR MG UG TA BL ET DI 16 12 60 30 00 SO Ac CL 57 -1 -0 .0 00 PE ti OF 10 4- 9- 00 00 RS ve EN 20 20 20 55 AC 11 16 17 10 FA 1 28 PA SO LY D EC DR UG 75 MG TA B NO 00 12 20 30 00 SO Ac VO 16 -1 -0 .0 00 PE ti LI 91 2- 9- 00 00 RS ve N 83 20 20 53 70 71 16 17 88 FA -3 1 20 PA [address] UN UG IT /M L AL MO 08 12 01 60 30 00 SO Ac NO 88 -1 -0 .0 00 PE ti JE 16 2- 9- [address] 09 20 20 53 23 16 17 88 FA SY 1 21 PA RI LY NG E DR 0. UG 5 ML AT 00 12 30 30 00 SO Ac OR 37 -1 -0 .0 00 PE ti VA 83 2- 9- [address] 95 20 20 53 AT 30 16 17 88 FA IN [address] MG UG TA BL ET LI 57 12 30 30 00 SO Ac SI 23 -1 -0 .0 00 PE ti NO 70 2- 9- 00 00 RS ve MA 05 20 20 53 IL 79 16 17 88 FA 9 18 PA [address] UG TA BL ET ME 00 12 30 30 00 SO Ac TO 37 -1 -0 .0 00 PE ti MA 80 2- 9- 00 00 RS ve OL 01 20 20 53 OL 80 16 17 88 FA 5 16 PA TA LY RT RA DR TE UG 25 MG TA B FU 00 12 30 30 00 SO Ac RO 37 -1 -0 .0 00 PE ti SE 80 2- 9- 00 00 RS ve PA 20 20 20 54 DE 81 16 17 69 FA 0 98 PA [address] UG TA BL ET CI 00 12 01 30 30 00 SO Ac TA 37 -1 -0 .0 00 PE ti LO 86 2- 9- 00 00 RS ve MA 23 20 20 54 AM 20 16 17 22 FA 5 33 PA HB LY R 20 DR UG MG TA BL ET Immunization Name Date Rout CVX Reac Dose Comm Prov Is Faci e tion ent ider Refu lity Give sed n TDAP 12-1 115 JESSY No JESSY 0-20 [facility] H[facility]P YRS/ INC INC > IM Results Labs Lab Lab Date Result Refere Interp Status Commen Order Detail nces retati t Range on Urinalysis dipstick W Reflex Microscopic panel in Urine (06-02-2017 15:45) Bacteri TRACE O complet a 017 ed [Presen 15:45 ce] in Urine sedimen t by Light microsc opy Erythro OCC 0 complet cytes 017 ed [Presen 15:45 ce] in Urine sedimen t by Light microsc opy Epithel NONE OCC complet ial 017 ed cells.s 15:45 quamous [Presen ce] in Urine sedimen t by Microsc opy high power field Leukocy 3-5 O complet isma 017 wbc/hpf ed [#/volu 15:45 me] in Urine Urinalysis dipstick W Reflex Microscopic panel in Urine (06-02-2017 15:45) Appeara CLEAR CLEAR complet nce of 017 ed Urine 15:45 Bilirub NEGATIV NEG complet in 017 E ed [Presen 15:45 ce] in Urine by Test strip Erythro NEGATIV NEG complet cytes 017 E ed [Presen 15:45 ce] in Urine Color YELLOW YELLOW complet of 017 ed Urine 15:45 Ketones NEGATIV NEG complet 017 E ed [Presen 15:45 ce] in Urine by Automat ed test strip Mucus NEGATIV NEG complet [Presen 017 E ed ce] in 15:45 Urine sedimen t by Light microsc opy Nitrite NEGATIV NEG complet 017 E ed [Presen 15:45 ce] in Urine by Test strip Urobili 0.2 NEG complet nogen 017 ed [Presen 15:45 ce] in Urine by Test strip Cell count & Differential panel in Body fluid (04-01-2017 08:30) Specime SYNOVIA complet n 017 L ed source 08:30 [Identi fier] of Body fluid Procedures Procedure DOS Code Location Performer Comment ECG 03522 [facility] ROUTINE 7 [facility] ECG INC INC W/LEAST 12 LDS TRCG ONLY [facility] 69686 [facility] DISCHARGE 7 PHYSICIAN DAY S GROUP MANAGEMEN T 30 MIN/< SBSQ 21401 [facility] 7 PHYSICIAN CARE/DAY S GROUP 15 MINUTES INCISION 00844 [facility] & 7 PHYSICIAN DRAINAGE S GROUP ABSCESS COMPLICAT ED/MULTIP LE RADIOLOGI 48494 [facility] C EXAM 7 MEDICAL CHEST 2 IMAGING VIEWS ASS FRONTAL&L ATERAL INITIAL 74495 [facility] INPATIENT 7 PHYSICIAN CONSULT S GROUP NEW/ESTAB PT 40 MIN DRAINAGE [id number] [facility] RIGHT 7 [facility] UPPER ARM INC INC SUBQ TISSUE FASCIA OPEN INSERTION [id number] [facility] INFUSION 7 [facility] DEVICE INC INC LT BASILIC VEIN PERQ INITIAL 00965 [facility] 7 PHYSICIAN CARE/DAY S GROUP 50 MINUTES THERAPEUT 89627 [facility] IC PX 1/> 7 [facility] AREAS INC INC EACH 15 MIN EXERCISES APPL 92587 [facility] MODALITY 7 [facility] 1/> AREAS INC INC TRACTION MECHANICA L THERAPEUT 84022 [facility] NIKKI IC 7 PHYSICIAN PROPHYLAC S GROUP TIC/DX INJECTION SUBQ/IM INJECTION J0696 [facility] NIKKI 7 PHYSICIAN CEFTRIAXO S GROUP NE SODIUM PER 250 MG CATH PLMT 27932 [facility] MINAL L HRT & 7 PHYSICIAN ARTS S GROUP W/NJX & ANGIO IMG S&I CLOSURE C1760 [facility] DEVICE 7 [facility] VASCULAR INC INC GUIDE C1769 [facility] WIRE 7 [facility] INC INC GLUC BLD 41332 [facility] GLUC MNTR 7 [facility] DEV INC INC CLEARED FDA SPEC HOME USE ECG 51676 [facility] ROUTINE 7 [facility] ECG INC INC W/LEAST 12 LDS TRCG ONLY W/O I&R THERAPEUT 92432 [facility] IC PX 1/> 7 [facility] AREAS INC INC EACH 15 MIN EXERCISES APPL 28505 [facility] MODALITY 7 [facility] 1/> AREAS INC INC TRACTION MECHANICA L ECHO 84751 [facility] TTHRC R-T 7 [facility] 2D INC INC W/WOM-MOD E COMPL SPEC&COLR D APPL 37886 [facility] MODALITY 7 [facility] 1/> AREAS INC INC TRACTION MECHANICA L THERAPEUT 52622 [facility] IC PX 1/> 7 [facility] AREAS INC INC EACH 15 MIN EXERCISES THERAPEUT 39519 [facility] IC PX 1/> 7 [facility] AREAS INC INC EACH 15 MIN EXERCISES APPL 72602 [facility] MODALITY 7 [facility] 1/> AREAS INC INC TRACTION MECHANICA L APPL 69335 [facility] MODALITY 7 [facility]/> AREAS INC INC ULTRASOUN D EA 15 [place] [address] [facility] THYROXINE 7 [facility] TOTAL INC INC COMPREHEN 32221 [facility] SIVE 7 [facility] METABOLIC INC INC PANEL COLLECTIO 16554 [facility] N VENOUS 7 [facility] [place] [address] [facility] THYROID 7 [facility] STIMULATI INC INC NG HORMONE TSH ECG 30515 [facility] CARRANZAON ROUTINE 7 [facility] ECG INC INC W/LEAST 12 LDS TRCG ONLY W/O I&R BLOOD 89028 [facility] COUNT 7 [facility] COMPLETE INC INC AUTO&AUTO DIFRNTL WBC HEMOGLOBI 70212 [facility] N 7 [facility] GLYCOSYLA INC INC PORSCHE A1C NATRIURET 52380 [facility] IC 7 [facility] PEPTIDE INC INC THERAPEUT 70343 [facility] IC PX 1/> 7 [facility] AREAS INC INC EACH 15 MIN EXERCISES APPL 12446 [facility] MODALITY 7 [facility] 1/> AREAS INC INC TRACTION MECHANICA L APPL 79673 [facility] MODALITY 7 [facility] 1/> AREAS INC INC ULTRASOUN D EA 15 MIN APPL 91954 [facility] MODALITY 7 [facility] 1/> AREAS INC INC ULTRASOUN D EA 15 MIN APPL 28694 [facility] MODALITY 7 [facility] 1/> AREAS INC INC TRACTION MECHANICA L THERAPEUT 50844 [facility] RUSS IC PX 1/> 7 [facility] AREAS INC INC EACH 15 MIN EXERCISES THERAPEUT 38758 [facility] IC PX 1/> 7 [facility] AREAS INC INC EACH 15 MIN EXERCISES APPL 80183 [facility] MODALITY 7 [facility] 1/> AREAS INC INC TRACTION MECHANICA L APPL 26489 [facility] MODALITY 7 [facility] 1/> AREAS INC INC ULTRASOUN D EA 15 MIN APPL 07170 [facility] MODALITY 7 [facility] 1/> AREAS INC INC ULTRASOUN D EA 15 MIN APPL 26396 [facility] MODALITY 7 [facility] 1/> AREAS INC INC TRACTION MECHANICA L PHYSICAL 14414 [facility] THERAPY 7 [facility] EVALUATIO INC INC N MOD COMPLEX 30 MINS SHOULDER L3650 [facility] 6 TECHNOLOG TECHNOLOG FIG 8 IES INC IES INC ABDUCT RESTRAINE R PREFAB ECHO 08836 CLARISSA JIMÉNEZ GILA TTHRC R-T 6 MEDICAL 2D SERV W/WOM-MOD FOUNDATIO E COMPL N SPEC&COLR D CATH 50376 CLARISSA RONALDO PLACEMENT 6 MEDICAL & NJX SERV CORONARY FOUNDATIO ART ANGIO N IMG S&I ECG 56384 [facility] ROUTINE 6 [facility] ECG INC INC W/LEAST 12 LDS TRCG ONLY W/O I&R CREATINE 34914 [facility] KINASE 6 [facility] [place] [address] [facility] LIPASE 6 [facility] [place] [address] [facility] TROPONIN 6 [facility] QUANTITAT INC INC SANIA BLOOD 17861 [facility] COUNT 6 [facility] COMPLETE INC INC AUTO&AUTO DIFRNTL WBC GROUND A0425 [address] PER AMBULANCE AMBULANCE STATUTE SE SE MILE INITIAL 82258 [facility] 6 NURSE CARE/DAY PRACTITIO 50 NER GR MINUTES THERAPEUT 57345 [facility] IC 6 [facility] INJECTION INC INC IV PUSH EACH NEW DRUG ECG 67088 CLARISSA MIRTHA ROUTINE 6 MEDICAL COMMUNICATIONS PROFESSIONAL ECG SERV W/LEAST FOUNDATIO 12 LDS N I&R ONLY INSJ 97638 [facility] NON-TUNNE 6 PHYSICIAN SHERWIN LED S, [facility] VENOUS CATH AGE 5 YR/> CR[facility]ICAL 98435 [facility] 6 PHYSICIAN SHERWIN ILL/INJUR S, [facility] ED PATIENT ADDL 30 MIN FIBRIN 71904 [facility] DGRADJ 6 [facility] PRODUCTS INC INC D-DIMER QUAL/SEMI ROLANDO COMPREHEN 56147 [facility] SIVE 6 [facility] METABOLIC INC INC PANEL THER 39226 [facility] PROPH/DX 6 [facility] NJX IV INC INC PUSH SINGLE/1S T SBST/DRUG CREATINE 76459 [facility] KINASE MB 6 [facility] FRACTION INC INC ONLY CRITICAL 93258 [facility] 6 PHYSICIAN SHERWIN ILL/INJUR S, PLLC ED PATIENT INIT 30-74 MIN INJECTION J2405 [facility] 6 [facility] ONDANSETR INC INC ON HCL PER 1 MG RADIOLOGI 33309 [place] MERHAR C 6 MEDICAL GAR EXAMINATI SERV ON CHEST FOUNDATIO SINGLE N VIEW FRONTAL AMB A0427 [facility] SERVICE 6 [facility] AMBULANCE AMBULANCE EMERGENCY SE SE TRANSPORT LEVEL 1 DUP-SCAN 99254 [place] ROLDAN ALL XTR VEINS 6 MEDICAL IMAGING UNILATERA ASS L/LIMITED STUDY BLOOD 41649 [facility] OCCULT 5 [facility] PEROXIDAS URGENT E ACTV TREAT QUAL FECES 1 DETER COLLECTIO 49622 [facility] N VENOUS 5 [facility] BLOOD URGENT VENIPUNCT TREAT URE COLLECTIO 78139 [facility] N VENOUS 5 PHYSICIAN [place] B[place] [address] [facility] FREE 5 [facility] [place] [address] [facility] THYROID 5 [facility] STIMULATI INC INC NG HORMONE TSH 25 90142 [facility] HYDROXY 5 [facility] INCLUDES INC INC FRACTIONS IF PERFORMED COMPREHEN 25986 [facility] SIVE 5 [facility] METABOLIC INC INC PANEL LIPID 05193 [facility] PANEL 5 [facility] INC INC PROSTATE G0103 [facility] CANCER 5 [facility] SCREENING INC INC ; PSA TEST BLOOD 31921 [facility]LO[facility] COUNT 5 [facility] COMPLETE INC INC AUTO&AUTO DIFRNTL WBC DUP-SCAN 78858 [facility] XTR VEINS 5 [facility] INC INC UNILATERA L/LIMITED STUDY COMPREHEN 71004 [facility] SIVE 5 [facility] METABOLIC INC INC PANEL THROMBOPL 12765 [facility] ASTIN 5 [facility] TIME INC INC PARTIAL PLASMA/WH OLE BLOOD BLOOD 69782 [facility] COUNT 5 [facility] COMPLETE INC INC AUTO&AUTO DIFRNTL WBC THERAPEUT 18204 [facility] IC 5 [facility] PROPHYLAC INC INC TIC/DX INJECTION SUBQ/IM FIBRIN 97687 [facility] DGRADJ 5 [facility] PRODUCTS INC INC D-DIMER QUAL/SEMI ROLANDO PROTHROMB 94391 [facility] IN TIME 5 [facility] INC INC SEDIMENTA 11587 [facility] TION RATE 5 [facility] RBC INC INC NON-AUTOM ATED COLLECTIO 03440 [facility] N VENOUS 5 [facility] BLOOD INC INC VENIPUNCT URE COMPREHEN 24720 [facility] SIVE 4 [facility] METABOLIC INC INC PANEL RADEX 09178 [place] [facility] FORE[facility] 2 4 MEDICAL KEVIN VIEWS IMAGING ASS BLOOD 02807 [facility] COUNT 4 [facility] COMPLETE INC INC AUTO&AUTO DIFRNTL WBC CULTURE 91950 [facility] BACTERIAL 4 [facility] BLOOD INC [place] W/[place] [address] [facility] INFUSION 4 [facility] THERAPY/P INC INC ROPHYLAXI S /DX 1ST TO 1 HR THERAPEUT 67165 [facility] IC 4 [facility] INJECTION INC INC IV PUSH EACH NEW DRUG IM ADM 31941 [facility] PRQ ID 4 [facility] SUBQ/IM INC INC NJXS 1 VACCINE TDAP 48493 [facility] VACCINE 7 4 [facility] YRS/> IM INC INC LARYNGOSC 94073 [place] OPY 4 MEDICAL ALEJANDRE FLEXIBLE SERV DIAGNOSTI FOUNDATIO C N RADIOLOGI 02337 [facility] C EXAM 4 MEDICAL EVELINE CHEST 2 IMAGING VIEWS ASS FRONTAL&L ATERAL ECG 58098 [facility] [place] ROUTINE 4 MACY MARIBELL ECG EMERGENCY W/LEAST PHYS 12 LDS I&R ONLY RADEX 01380 [place] HAND 4 MEDICAL JACKLYN MINIMUM 3 SERV VIEWS FOUNDATIO Encounters Encounter Start End Date Code Location Performer Type Date OFFICE 72872 [facility] NIKKI OUTPATIEN 7 7 PHYSICIAN T VISIT S GROUP 15 MINUTES [facility] - 7 7 [facility] OUTPATIEN [facility] R[facility] - 7 7 [facility] INPATIENT [facility] EMERGENCY 89990 TONE JORDAN DEPT 7 7 PHYSICIAN VISIT S, PLLC HIGH SEVERITY& THREAT FUNJ OFFICE 00661 [facility] NIKKI OUTPATIEN 7 7 PHYSICIAN T VISIT S GROUP 25 MINUTES [facility] RUSS - 7 7 [facility] OUTPATIEN [facility] RUSS - 7 7 [facility]PATI[facility] RUSS - 7 7 [facility]PATIEN [facility] RUSS - 7 7 [facility] OUTPATIEN [facility] RUSS - 7 7 [facility]PATIEN [facility] OFFICE 24183 [facility] NIKKI OUTPATIEN 7 7 PHYSICIAN T VISIT S GROUP 25 MINUTES [facility] RUSS - 7 7 [facility] OUTPATIEN [facility] OFFICE 09166 RACHAEL MAC OUTPATIEN 7 7 HEALTH T VISIT SOLUTIONS 25 IN MINUTES OFFICE 90878 RACHAEL MAC OUTPATIEN 7 7 HEALTH T VISIT SOLUTIONS 15 IN MINUTES OFFICE 27332 RACHAEL MAC OUTPATIEN 7 7 HEALTH T VISIT SOLUTIONS 25 IN MINUTES OFFICE 16292 RACHAEL MAC OUTPATIEN 6 6 HEALTH T VISIT SOLUTIONS 15 IN MINUTES OFFICE 46211 RACHAEL MAC OUTPATIEN 6 6 HEALTH T VISIT SOLUTIONS 15 IN MINUTES OFFICE 53036 CLARISSA KENYONA OUTPATIEN 6 6 MEDICAL T VISIT SERV 15 FOUNDATIO MINUTES N EMERGENCY 18088 [facility] DEPT 6 6 [facility] VISIT INC HIGH SEVERITY& THREAT FUN HOSPITAL RUSS - 6 6 [facility] OUTPATIEN INC T EMERGENCY 48320 CLARISSA SALLIE 6 [address] [facility] SERV T VISIT FOUNDATIO HIGH/URGE N NT SEVERITY OFFICE 29267 [facility] 6 6 [facility] T VISIT URGENT 15 TREAT MINUTES [facility]OSPITAL [facility] - 6 6 [facility] OUTPATIEN INC T OFFICE 52453 [facility] OUTPATIEN 6 6 [facility] T VISIT URGENT 25 TREAT MINUTES [facility]PITAL [facility] - 5 5 [facility] OUTPATIEN INC T OFFICE 13688 [facility] OUTPATIEN 5 5 [facility] T VISIT URGENT 25 TREAT MINUTES OFFICE 67734 [facility] OUTPATI[facility] 5 5 PHYSICIAN [facility] T VISIT S GROUP 25 MINUTES [facility]OSPITAL [facility] - 5 5 [facility] OUTPATIEN INC T OFFICE 26073 [facility] PHYSICIAN MARIBELL T VISIT S GROUP 15 MINUTES [facility]OSPITAL [facility] - 5 5 [facility] OUTPATIEN INC T EMERGENCY 08959 [facility] 5 5 [facility] DEPARTMEN INC T VISIT LOW/MODER SEVERITY [facility]OSPITAL [facility] - 5 5 [facility] OUTPATIEN INC T EMERGENCY 91986 [facility] JORDAN 5 5 [facility] T VISIT P MODERATE SEVERITY HOSPITAL [facility] - 4 4 [facility] OUTPATIEN INC T EMERGENCY 73318 [facility] JORDAN 4 4 [facility] T VISIT P MODERATE SEVERITY OFFICE 26670 [place] 4 4 MEDICAL ALEJANDRE T NEW 45 SERV MINUTES FOUNDATIO N EMERGENCY 85559 [facility] [place] DEPT 4 4 MACY MARIBELL VISIT EMERGENCY HIGH PHYS SEVERITY& THREAT [facility] OFFICE 26715 GIRMA RAYO OUTPATIEN 4 4 SHERWIN VANESSA 30 MINUTES
--- OUTSIDE RECORDS SUMMARY | 2017-06-21 19:36 | External Medical Summary Rpt ---
Author Author , YOSELIN WYATT Address Unknown Phone [email or web address] [email or web address] Team Providers Care Transportation Dispatcher Name Role Phone [employer] Unavailable Unavailable INC, [employer] Unavailable Unavailable INC, [employer] MONTERO ALEJANDRE, MONTERO Unavailable Unavailable ALEJANDRE BEINEKE EVELINE, BEINEKE Unavailable Unavailable EVELINE KIERAN, KIERAN Unavailable Unavailable ROLDAN, ROLDAN Unavailable Unavailable ROLDAN ALL, ROLDAN ALL Unavailable Unavailable SALLIE ADRIEN, SALLIE Unavailable Unavailable ADRIEN [facility] Unavailable Unavailable SERVICE, [facility] MIRTHA PURCHASE ANALYST, MIRTHA Unavailable Unavailable PURCHASE ANALYST RUBY KEVIN, Unavailable Unavailable RUBY KEVIN FALLS CAN, FALLS CAN Unavailable Unavailable FRYMAN, FRYMAN Unavailable Unavailable NIKKI, NIKKI Unavailable Unavailable NIKKI MARIBELL, NIKKI Unavailable Unavailable MARIBELL [facility] Unavailable Unavailable INC, [facility] Unavailable [facility]available HOSPITAL P, [facility], Unavailable Unavailable [facility] MAC, MAC Unavailable Unavailable MAC NAN, MAC Unavailable Unavailable NAN [facility] Un[facility], [facility] NURSE Unavailable Unavailable PRACTITIONER GR, KMSF NURSE PRACTITIONER GR [facility] Unavailable [facility] JIMÉNEZ GILA, JIMÉNEZ GILA Unavailable Unavailable RONALDO, RONALDO Unavailable Unavailable GIRMA SHERWIN, GIRMA Unavailable Unavailable SHERWIN GIRMA SHERWIN, GIRMA Unavailable Unavailable SHERWIN MERHAR GAR, MERHAR Unavailable Unavailable GAR [facility] Unavailable Unavailable AMBULANCE SE, [facility] AMBULANCE SE [facility] Unavailable Unavailable AMBULANCE SE, [facility] AMBULANCE [facility] Unavailable Unavailable URGENT TREAT, [facility]ENT [facility]RE[facility] NICKELS JACKLYN, NICKELS Unavailable Unavailable JACKLYN [facility], Unavailable [facility]available [facility], [facility] PETTEY, PETTEY Unavailable Unavailable RENUSCH SHERWIN, RENUSCH Unavailable Unavailable SHERWIN MINAL, MINAL Unavailable Un[facility] Unavailable Unavailable SOLUTIONS IN, [facility] SOLUTIONS IN Purpose Continuity of Care Document - 04-26-2014 through 2016 Problems Code Diagnosis DOS Provider Status L0390 CELLULITIS 04-09-2017 [facility] UNSPECIFIED PHYSICIANS GROUP E119 TYPE 2 04-06-2017 [facility] MELLITUS INC WITHOUT COMPLICATIO NS E785 HYPERLIPIDE 04-06-2017 [facility] UNSPECIFIED INC I10 ESSENTIAL 04-06-2017 [facility] HYPERTENSIO INC N I2510 [place] 04-06-2017 [facility] ARTERY W/O INC ANGINA PECTORIS Z720 TOBACCO USE 04-06-2017 [facility] INC [id number] CELLULITIS 04-01-2017 [facility] OF RIGHT PHYSICIANS UPPER LIMB GROUP R05 COUGH 04-01-2017 [facility] R918 OTHER 04-01-2017 [facility] NONSPECIFIC [facility]ICAL ABNORMAL IMAGING ASS FINDING OF LUNG FIELD Z452 ENCOUNTER 04-01-2017 [facility]JUST[facility] MGMT IM[facility]ING ASS VASCULAR ACCESS DEVICE B9562 METHICILLIN 03-31-2017 [facility] STAPH INF INC CAUSE DZ CLASS ELSW E118 TYPE 2 03-31-2017 [facility]ANS, MELLITUS PLLC W/UNS COMPLICATIO NS Z794 HALFWAY 03-31-2017 [facility] CURRENT USE PHYSICIANS, OF INSULIN PLLC I208 OTHER FORMS 03-25-2017 [facility] OF ANGINA PHYSICIANS PECTORIS GROUP [id number] [place] 03-25-2017 [facility] COR ART PHYSICIANS W/OTH FORMS GROUP ANGINA PECTORIS S00441 [place] 03-25-2017 [facility] W/UNS [...] [facility] INC R011 CARDIAC 03-10-2017 [facility] MURMUR PHYSICIANS UNSPECIFIED GROUP R5383 OTHER 03-10-2017 [facility] FATIGUE PHYSICIANS GROUP J208 ACUTE 02-15-2017 [facility] BRONCHITIS [facility] DUE TO SOLUTIONS OTHER SPEC IN ORGANISMS H6503 ACUTE 01-13-2017 [facility] SEROUS [facility] OTITIS SOLUTIONS MEDIA IN BILATERAL H97017 PAIN IN 01-13-2017 [facility] RIGHT LEG HEALTH SOLUTIONS IN F22202 PAIN IN 01-13-2017 [facility] LEFT LEG HEALTH SOLUTIONS IN X6370VB SPRAIN RT 11-03-2016 [facility] ACROMIOCLAV [facility]ALTH ICULAR SOLUTIONS JOINT IN SUBSQT ENC W23512 PAIN IN 10-28-2016 [facility] UNSPECIFIED HEALTH SHOULDER SOLUTIONS IN [id number] CONTUSION 10-22-2016 [facility] OF RIGHT TECHNOLOGIE SHOULDER S INC INITIAL ENCOUNTER G4700 INSOMNIA 06-10-2016 [facility] 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 F71026 PAIN IN LEG 06-10-2016 [facility] 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-25-2016 [facility] [place]CEM [place] E639 NUTRITIONAL 04-25-2016 S NURSE DEFICIENCY PRACTITIONE R GR UNSPECIFIED E878 OTHER D/O 04-25-2016 [facility] NURSE OF PRACTITIONE ELECTROLYTE R GR AND FLUID BALANCE NEC I517 CARDIOMEGAL 04-25-2016 [facility] R079 CHEST PAIN 04-25-2016 [facility] AMBULANCE SE R112 NAUSEA WITH 04-25-2016 [facility] VOMITING [facility] UNSPECIFIED AMBULANCE SE R531 WEAKNESS 04-25-2016 [facility] AMBULANCE SE R61 GENERALIZED 04-25-2016 [facility] HYPERHIDROS AMBULANCE IS SE R7989 OTHER SPEC 04-25-2016 [facility] ABNORMAL AMBULANCE FINDINGS SERVICE BLOOD CHEMISTRY R9431 ABNORMAL 04-25-2016 [facility] Z95979 CELLULITIS 03-04-2016 [facility] LEFT [facility] LOWER LIMB URGENT TREAT G94166 PAIN IN 02-27-2016 [facility] LEFT THIGH [facility] INC M7989 OTHER 02-27-2016 [facility] SPECIFIED [facility]ICAL SOFT TISSUE IMAGING ASS DISORDERS R600 LOCALIZED 02-27-2016 [facility] 60630 DIAB W/O 07-30-2015 [facility] COMP TYPE [facility] II/UNS NOT URGENT STATED TREAT UNCNTRL 07923 HYPERTROPHY 07-30-2015 [facility] PROSTATE [facility] W/UR OBST & URGENT OTH LUTS TREAT 29909 URINARY 07-30-2015 [facility] FREQUENCY [facility] URGENT TREAT 6829 CELLULITIS 02-04-2015 [facility] AND ABSCESS PHYSICIANS OF GROUP UNSPECIFIED SITE 29811 OTHER 02-04-2015 [facility] FATIGUE INC 7823 EDEMA 02-04-2015 [facility] PHYSICIANS GROUP 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 V770 SCREENING 02-04-2015 [facility] FOR THYROID [facility] DISORDER INC V7791 SCREENING 02-04-2015 [facility] FOR LIPOID PHYSICIANS DISORDERS GROUP V781 SCREENING 02-04-2015 [facility] OTHER&UNSPE PHYSICIANS CIFIED GROUP DEFICIENCY ANEMIA 7295 PAIN IN 12-06-2014 [facility] SOFT MEDICAL TISSUES OF IMAGING ASS LIMB 10895 SWELLING OF 12-06-2014 [facility] LIMB [facility] INC 6826 CELLULITIS 12-05-2014 [facility] AND ABSCESS [facility] P EXCEPT FOOT V146 PERSONAL 12-05-2014 [facility] HISTORY OF [facility] ALLERGY TO HOSPITAL P ANALGESIC AGENT 75886 OPEN WOUND 10-24-[address] [address] [facility] P COMPLICATED E8490 PLACE OF 10-24-2014 [facility] OCCURRENCE, [facility] P E8859 FALL FROM 10-24-2014 [facility] OTHER [facility] SLIPPING [facility] P TRIPPING OR STUMBLING 470 DEVIATED 10-18-2014 [facility] 45627 ESOPHAGEAL 10-18-2014 [facility]UX [facility] 27624 LARYNGEAL 09-22-2014 [facility]ERG[facility]Y PHYS 61817 ASTHMA, 09-22-2014 [facility] UNSPECIFIED N EMERGENCY , PHYS UNSPECIFIED STATUS 09437 SHORTNESS 09-22-2014 [facility] 33312 OTHER 09-22-2014 [facility] N EMERGENCY PHYS RESPIRATORY ABNORMALITI ES 6824 CELLULITIS& 04-26-2014 GIRMA COURTNEY ABSCESS OF HAND EXCEPT FINGERS&[place] [address] CERTAIN 04-26-2014 GIRMA COURTNEY ADVERSE EFFECTS NEC [...] 80 3- 4- 00 00 RS ve FL 21 20 20 56 DE 61 17 17 36 FA 0 11 FL [address] UG TA BL ET EA 91 07 08 30 30 00 SO Ac SY 23 -1 -0 .0 00 PE ti 70 3- 4- 00 00 RS ve CO 00 20 20 56 MF 10 17 17 60 FA OR 9 42 FL T LY 0. 5 DR ML UG SY RI NG E BU 00 07 07 34 22 00 RO Ac NH 05 -0 -2 .0 00 SS ti EN 40 6- 8- 00 01 ve OR [address] PH 91 17 17 91 UG IN 3 46 S -N AL OX ON 8- 2 MG SL BU 50 06 07 11 7 00 RO Ac NH 38 -2 -2 .0 00 SS ti EN 30 9- 1- 00 01 ve OR [address] PH 79 17 17 85 UG IN 3 19 S -N AL OX ON 8- 2 MG SL ME 00 06 07 60 30 00 SO Ac TO 37 -2 -2 .0 00 PE ti NH 80 8- 1- 00 00 RS ve OL 01 20 20 56 OL 80 17 17 45 FA 5 37 FL TA LY RT RA DR TE UG 25 MG TA B NO 00 06 07 20 30 00 SO Ac VO 16 -1 -0 .0 00 PE ti LI 91 4- 7- 00 00 RS ve N 83 20 20 53 70 71 17 17 88 FA -3 1 20 FL [address] UN UG IT /M L AL FR 99 06 07 50 25 00 SO Ac EE 07 -1 -0 .[address] 30 4- 7- 00 00 RS ve YL 70 20 20 53 E 82 17 17 88 FA LI 2 23 FL TE LY TE DR ST UG ST RI P BR 00 06 07 60 30 00 SO Ac IL 18 -1 -0 .0 00 PE ti IN 60 4- 7- 00 00 RS ve TA 77 20 20 53 76 17 17 88 FA 90 0 [address] TA UG BL ET FU 00 06 07 30 30 00 SO Ac RO 37 -1 -0 .0 00 PE ti SE 80 4- 7- 00 00 RS ve FL 21 20 20 56 DE 61 17 17 36 FA 0 11 FL [address] UG TA BL ET LI 68 06 07 30 30 00 SO Ac SI 18 -1 -0 .0 00 PE ti NO 00 4- 7- 00 00 RS ve NH 51 20 20 56 IL 70 17 17 59 FA 3 72 FL [address] UG TA BL ET AT 55 06 07 30 30 00 SO Ac OR 11 -1 -0 .0 00 PE ti VA 10 4- 7- [address] 12 20 20 56 AT 40 17 17 59 FA IN 5 [address] MG UG TA BL ET ME 23 06 07 60 30 00 SO Ac TF 15 -1 -0 .0 00 PE ti OR 50 4- 7- 00 00 RS ve FL 10 20 20 56 N 21 17 17 59 FA HC 0 74 FL L LY [address] MG UG TA BL ET IN 57 06 07 30 30 00 SO Ac VICTORIA 51 -1 -0 .0 00 PE ti LI 50 4- 7- 00 00 RS ve N 17 20 20 56 SY 45 17 17 60 FA RI 9 42 FL N LY 0. 5 DR ML UG 31 GX " BU 00 05 06 45 30 00 RO Ac NH 05 -3 -2 .0 00 SS ti EN 40 0- 3- 00 01 ve OR [address] PH 91 17 17 43 UG IN 3 04 S -N AL OX ON 8- 2 MG SL ME 00 05 06 60 30 00 SO Ac TO 37 -2 -1 .0 00 PE ti NH 80 3- 6- 00 00 RS ve OL 01 20 20 56 OL 80 17 17 45 FA 5 37 FL TA LY RT RA DR TE UG 25 MG TA B BU 00 05 06 26 14 00 RO Ac NH 05 -1 -0 .0 00 SS ti [...] 17 17 88 FA IN 5 [address] MG UG TA BL ET UL 08 03 20 60 30 00 SO Ac TR 88 -1 -0 .0 00 PE ti A 16 5- 9- 00 00 RS ve CO 09 20 20 53 MF 00 17 17 88 FA OR 4 21 FL T LY 0. 5 DR ML UG [...] 17 17 88 FA -3 1 20 FL [address] UN UG IT /M L AL BR 00 03 20 60 30 00 SO Ac IL 18 -0 -0 .0 00 PE ti IN 60 8- 2- 00 00 RS ve TA 77 20 20 53 76 17 17 88 FA 90 0 [address] TA UG BL ET ME 23 03 20 60 30 00 SO Ac TF 15 -0 -0 .0 00 PE ti OR 50 8- 2- 00 00 RS ve FL 10 20 20 54 N 21 17 17 66 FA HC 0 47 FL L LY [address] MG UG TA BL ET NI 00 05 06 28 28 00 SO Ac CO 53 -1 -0 .0 00 PE ti TI 65 1- 2- 00 00 RS ve NE 89 20 20 56 68 17 17 36 FA 21 8 01 FL LY MG /2 DR 4H UG R PA TC H LI 68 05 30 30 00 SO Ac SI 18 -1 -0 .0 00 PE ti NO 00 1- 2- 00 00 RS ve NH 51 20 20 53 IL 70 17 17 88 FA 3 18 FL [address] UG TA BL ET FU 00 03 20 30 30 00 SO Ac RO 37 -1 -0 .0 00 PE ti SE 80 1- 2- 00 00 RS ve FL 21 20 20 56 DE 61 17 17 36 FA 0 11 FL [address] UG TA BL ET CE 00 05 06 30 10 00 SO Ac PH 09 -1 -0 .0 00 PE ti AL 33 2- 2- 00 00 RS ve EX 14 20 20 56 IN 70 17 17 37 FA 5 44 FL [address] UG CA PS UL E FL 65 05 06 20 10 00 SO Ac NO 86 -1 -0 .0 00 PE ti CY 20 2- 2- 00 00 RS ve CL 21 20 20 56 IN 10 17 17 37 FA E 5 45 FL [address] UG CA PS UL E BU 00 05 05 25 14 00 RO Ac NH 05 -0 -2 .0 00 SS ti [...] 17 17 88 FA LI 2 23 FL TE LY TE DR ST UG ST RI P BU 00 04 05 9. 5 00 RO Ac NH 05 -2 -1 00 00 SS ti EN 40 7- 9- 0 01 ve OR [address] PH 91 17 17 06 UG IN 3 97 S -N AL OX ON 8- 2 MG SL FU 00 04 05 30 30 00 SO Ac RO 37 -2 -1 .0 00 PE ti SE 80 1- 2- 00 00 RS ve FL 20 20 20 54 DE 81 17 17 69 FA 0 98 FL [address] UG TA BL ET ME 00 04 05 30 30 00 SO Ac TO 37 -2 -1 .0 00 PE ti NH 80 0- 2- 00 00 RS ve OL 01 20 20 53 OL 80 17 17 88 FA 5 16 FL TA LY RT RA DR TE UG 25 MG TA B ET 51 04 05 60 30 00 SO Ac OD 67 -1 -1 .0 00 PE ti OL 24 8- 2- 00 00 RS ve AC 01 20 20 56 80 17 17 17 FA 40 1 42 FL [address] TA UG BL ET NH 00 04 05 12 5 00 SO Ac OM 60 -0 -0 0. 00 PE ti ET 31 3- 5- 00 00 RS ve GARCIA 58 20 20 0 56 ZI 65 17 17 04 FA NE 8 77 FL -D LY M SY DR RU UG P UL 08 04 05 60 30 00 SO Ac TR 88 -1 -0 .0 00 PE ti A 16 0- 5- 00 00 RS ve CO 09 20 20 53 MF 00 17 17 88 FA OR 4 21 FL T LY 0. 5 DR ML UG SY RI NG E NO 00 04 05 20 30 00 SO Ac VO 16 -0 -0 .0 00 PE ti LI 91 8- 5- 00 00 RS ve N 83 20 20 53 70 71 17 17 88 FA -3 1 20 FL [address] UN UG IT /M L AL BR 00 03 05 60 30 00 SO Ac IL 18 -2 -0 .0 00 PE ti IN 60 7- 5- 00 00 RS ve TA 77 20 20 53 76 17 17 88 FA 90 0 [address] TA UG BL ET ME 23 03 05 60 30 00 SO Ac TF 15 -2 -0 .0 00 PE ti OR 50 7- 5- 00 00 RS ve FL 10 20 20 54 N 21 17 17 66 FA HC 0 47 FL L LY [address] MG UG TA BL ET AZ 00 04 05 6. 5 00 SO Ac IT 78 -0 -0 00 00 PE ti HR 11 3- 5- 0 00 RS ve OM 49 20 20 56 YC 66 17 17 04 FA IN 8 75 FL LY [address] MG UG TA BL ET BU 00 04 05 30 15 00 RO Ac NH 05 -1 -0 .0 00 SS ti EN 40 2- 5- 00 01 ve OR [address] PH 91 17 17 87 UG IN 3 54 S -N AL OX ON 8- 2 MG SL LI 68 04 05 30 30 00 SO Ac SI 18 -1 -0 .0 00 PE ti NO 00 4- 5- 00 00 RS ve NH 51 20 20 53 IL 70 17 17 88 FA 3 18 FL [address] UG TA BL ET AT 00 04 05 30 30 00 SO Ac OR 37 -1 -0 .0 00 PE ti VA 83 4- 5- [address] 95 20 20 53 AT 30 17 17 88 FA IN 5 [address] MG UG TA BL ET BU 50 03 04 15 7 00 RO Ac NH 38 -2 -1 .0 00 SS ti EN 30 3- 4- 00 01 ve OR [address] PH 79 17 17 61 UG IN 3 02 S -N AL OX ON 8- 2 MG SL ME 00 03 04 30 30 00 SO Ac TO 37 -2 -1 .0 00 PE ti NH 80 0- 4- 00 00 RS ve OL 01 20 20 53 OL 80 17 17 88 FA 5 16 FL TA LY RT RA DR TE UG 25 MG TA B AT 00 03 04 30 30 00 SO Ac OR 37 -1 -0 .0 00 PE ti VA 83 3- 7- [address] 95 20 20 53 AT 30 17 17 88 FA IN 5 [address] MG UG TA BL ET LI 68 03 04 30 30 00 SO Ac SI 18 -1 -0 .0 00 PE ti NO 00 3- 7- 00 00 RS ve NH 51 20 20 53 IL 70 17 17 88 FA 3 18 FL [address] UG TA BL ET ET 51 03 04 60 30 00 SO Ac OD 67 -1 -0 .0 00 PE ti OL 24 4- 7- 00 00 RS ve AC 01 20 20 55 80 17 17 87 FA 40 1 19 FL [address] TA UG BL ET CY 00 03 04 30 30 00 SO Ac CL 60 -1 -0 .0 00 PE ti OB 33 4- 7- 00 00 RS ve EN 07 20 20 55 ZA 82 17 17 87 FA NH 1 20 FL IN LY E 5 DR MG UG TA BL ET FU 00 03 04 30 30 00 SO Ac RO 37 -1 -0 .0 00 PE ti SE 80 5- 7- 00 00 RS ve FL 20 20 20 54 DE 81 17 17 69 FA 0 98 FL [address] UG TA BL ET BU 00 03 04 15 7 00 RO Ac NH 05 -1 -0 .0 00 SS ti [...] 17 17 88 FA SY 8 21 FL RI LY N 0. DR 5 UG ML 28 GX 1/ 2" BU 50 03 03 15 7 00 RO Ac NH 38 -0 -3 .0 00 SS ti [...] 17 17 88 FA -3 1 20 FL [address] UN UG IT /M L AL FL 00 03 03 16 30 00 SO Ac UT 05 -0 -2 .0 00 PE ti IC 43 1- 4- 00 00 RS ve 27 20 20 55 ON 09 17 17 76 FA E 9 53 FL NH LY OP DR 50 UG MC G SP RA Y DI 61 03 03 60 30 00 SO Ac CL 44 -0 -2 .0 00 PE ti OF 20 1- 4- 00 00 RS ve EN 10 20 20 55 AC 31 17 17 76 FA 0 54 FL SO LY D DR DR UG 75 MG TA B CE 16 03 03 14 14 00 SO Ac TI 57 -0 -2 .0 00 PE ti RI 10 1- 4- 00 00 RS ve ZI 40 20 20 55 NE 25 17 17 76 FA 0 55 FL HC LY L 10 DR UG MG TA BL ET TI 57 03 03 30 30 00 SO Ac ZA 66 -0 -2 .0 00 PE ti NI 40 1- 4- 00 00 RS ve DI 50 20 20 55 NE 31 17 17 76 FA 8 56 FL HC LY L 4 DR MG UG TA BL ET BU 00 03 03 15 7 00 RO Ac NH 05 -0 -2 .0 00 SS ti EN 40 2- 4- 00 01 ve OR [address] PH 91 17 17 33 UG IN 3 57 S -N AL OX ON 8- 2 MG SL ME 00 02 03 30 30 00 SO Ac TO 37 -1 -1 .0 00 PE ti NH 80 0- 0- 00 00 RS ve OL 01 20 20 53 OL 80 17 17 88 FA 5 16 FL TA LY RT RA DR TE UG 25 MG TA B AT 00 02 03 30 30 00 SO Ac OR 37 -1 -1 .0 00 PE ti VA 83 0- 0- [address] 95 20 20 53 AT 30 17 17 88 FA IN 5 [address] MG UG TA BL ET BR 00 02 03 60 30 00 SO Ac IL 18 -1 -1 .0 00 PE ti IN 60 0- 0- 00 00 RS ve TA 77 20 20 53 76 17 17 88 FA 90 0 [address] TA UG BL ET LI 68 02 03 30 30 00 SO Ac SI 18 -1 -1 .0 00 PE ti NO 00 0- 0- 00 00 RS ve NH 51 20 20 53 IL 70 17 17 88 FA 3 18 FL [address] UG TA BL ET FU 00 02 03 30 30 00 SO Ac RO 37 -1 -1 .0 00 PE ti SE 80 0- 0- 00 00 RS ve FL 20 20 20 54 DE 81 17 17 69 FA 0 98 FL [address] UG TA BL ET CI 03 30 30 00 SO Ac TA 37 -1 -1 .0 00 PE ti LO 86 0- 0- 00 00 RS ve NH 23 20 20 54 AM 20 17 17 22 FA 5 33 FL HB LY R 20 DR UG MG TA BL ET MO 06 16 03 60 30 00 SO Ac NO 88 -1 -1 .0 00 PE ti JE 16 0- 0- [address] 09 20 20 53 23 17 17 88 FA SY 1 21 FL RI LY NG E DR 0. UG 5 ML ME 07 01 03 60 30 00 SO Ac TF 15 -1 -1 .0 00 PE ti OR 50 4- 0- 00 00 RS ve FL 10 20 20 54 N 21 17 17 66 FA HC 0 47 FL L LY [address] MG UG TA BL ET LI 68 02 30 30 00 SO Ac SI 18 -1 -0 .0 00 PE ti NO 00 2- 3- 00 00 RS ve NH 51 20 20 53 IL 70 17 17 88 FA 3 18 FL [address] UG TA BL ET AT 00 02 30 30 00 SO Ac OR 37 -1 -0 .0 00 PE ti VA 83 2- 3- [address] 95 20 20 53 AT 30 17 17 88 FA IN 5 [address] MG UG TA BL ET ME 00 02 30 30 00 SO Ac TO 37 -1 -0 .0 00 PE ti NH 80 3- 3- 00 00 RS ve OL 01 20 20 53 OL 80 17 17 88 FA 5 16 FL TA LY RT RA DR TE UG 25 MG TA B FU 00 02 30 30 00 SO Ac RO 37 -1 -0 .0 00 PE ti SE 80 3- 3- 00 00 RS ve FL 20 20 20 54 DE 81 17 17 69 FA 0 98 FL [address] UG TA BL ET NO 00 02 20 30 00 SO Ac VO 16 -1 -0 .0 00 PE ti LI 91 3- 3- 00 00 RS ve N 83 20 20 53 70 71 17 17 88 FA -3 1 20 FL [address] UN UG IT /M L AL MO 08 01 02 60 30 00 SO Ac NO 88 -1 -0 .0 00 PE ti JE 16 3- 3- [address] 09 20 20 53 23 17 17 88 FA SY 1 21 FL RI LY NG E DR 0. UG 5 ML BR 00 12 01 60 30 00 SO Ac IL 18 -2 -2 .0 00 PE ti IN 60 9- 0- 00 00 RS ve TA 77 20 20 53 76 16 17 88 FA 90 0 [address] TA UG BL ET ME 23 12 01 60 30 00 SO Ac TF 15 -2 -2 .0 00 PE ti OR 50 9- 0- 00 00 RS ve FL 10 20 20 54 N 21 16 17 66 FA HC 0 47 FL L LY [address] MG UG TA BL ET TR 57 12 01 60 15 00 SO Ac AM 66 -1 -0 .0 00 PE ti AD 40 4- 9- 00 00 RS ve OL 37 20 20 55 71 16 17 10 FA HC 8 21 FL L LY 50 DR MG UG TA BL ET DI 16 12 60 30 00 SO Ac CL 57 -1 -0 .0 00 PE ti OF 10 4- 9- 00 00 RS ve EN 20 20 20 55 AC 11 16 17 10 FA 1 28 FL SO LY D EC DR UG 75 MG TA B NO 00 12 20 30 00 SO Ac VO 16 -1 -0 .0 00 PE ti LI 91 2- 9- 00 00 RS ve N 83 20 20 53 70 71 16 17 88 FA -3 1 20 FL [address] UN UG IT /M L AL MO 08 12 01 60 30 00 SO Ac NO 88 -1 -0 .0 00 PE ti JE 16 2- 9- [address] 09 20 20 53 23 16 17 88 FA SY 1 21 FL RI LY NG E DR 0. UG 5 ML AT 00 12 30 30 00 SO Ac OR 37 -1 -0 .0 00 PE ti VA 83 2- 9- [address] 95 20 20 53 AT 30 16 17 88 FA IN 5 [address] MG UG TA BL ET LI 57 12 30 30 00 SO Ac SI 23 -1 -0 .0 00 PE ti NO 70 2- 9- 00 00 RS ve NH 05 20 20 53 IL 79 16 17 88 FA 9 18 FL [address] UG TA BL ET ME 00 12 30 30 00 SO Ac TO 37 -1 -0 .0 00 PE ti NH 80 2- 9- 00 00 RS ve OL 01 20 20 53 OL 80 16 17 88 FA 5 16 FL TA LY RT RA DR TE UG 25 MG TA B FU 00 12 30 30 00 SO Ac RO 37 -1 -0 .0 00 PE ti SE 80 2- 9- 00 00 RS ve FL 20 20 20 54 DE 81 16 17 69 FA 0 98 FL [address] UG TA BL ET CI 00 12 01 30 30 00 SO Ac TA 37 -1 -0 .0 00 PE ti LO 86 2- 9- 00 00 RS ve NH 23 20 20 54 AM 20 16 17 22 FA 5 33 FL HB LY R 20 DR UG MG [...] Procedure DOS Code Location Performer Comment ECG [id number] [facility]OUTINE [facility] ECG INC INC W/LEAST 12 LDS TRCG ONLY W[facility] 24371 [facility] DISCHARGE 7 PHYSICIAN DAY S GROUP MANAGEMEN T 30 MIN/< SBSQ 94691 [facility] 7 PHYSICIAN CARE/DAY S GROUP 15 MINUTES INCISION 77383 [facility] & 7 PHYSICIAN DRAINAGE S GROUP ABSCESS COMPLICAT ED/MULTIP LE RADIOLOGI 42947 [facility] C EXAM 7 MEDICAL CHEST 2 IMAGING VIEWS ASS FRONTAL&L ATERAL INITIAL 17738 [facility] INPATIENT 7 PHYSICIAN CONSULT S GROUP NEW/ESTAB PT 40 MIN DRAINAGE [id number] [facility] RIGHT [address] [facility] UPPER ARM INC INC SUBQ TISSUE FASCIA OPEN INSERTION [id number] [facility] INFUSION [address] [facility] DEVICE INC INC LT BASILIC VEIN PERQ INITIAL 08617 [facility] 7 PHYSICIAN CARE/DAY S GROUP 50 MINUTES THERAPEUT 98126 [facility] IC PX 1/> 7 [facility] AREAS INC INC EACH 15 MIN EXERCISES APPL 47737 [facility] MODALITY [address] [facility] 1/> AREAS INC INC TRACTION MECHANICA L THERAPEUT 86990 [facility] NIKKI IC 7 PHYSICIAN PROPHYLAC S GROUP TIC/DX INJECTION SUBQ/IM INJECTION J0696 [facility] NIKKI 7 PHYSICIAN CEFTRIAXO S GROUP NE SODIUM PER 250 MG CATH PLMT 00839 [facility] MINAL L HRT & 7 PHYSICIAN ARTS S GROUP W/NJX & ANGIO IMG S&I CLOSURE C1760 [facility] DEVICE 7 [facility] VASCULAR INC INC GUIDE C1769 [facility] WIRE 7 [facility] INC GLUC BLD 66937 [facility] GLUC MNTR 7 [facility] DEV INC INC CLEARED FDA SPEC HOME USE ECG 43226 [facility] ROUTINE 7 [facility] ECG INC INC W/LEAST 12 LDS TRCG ONLY W/O I&R THERAPEUT 17262 [facility] IC PX 1/> 7 [facility] AREAS INC INC EACH 15 MIN EXERCISES APPL 75116 [facility] MODALITY 7 [facility] 1/> AREAS INC INC TRACTION MECHANICA L ECHO 56636 [facility] TTHRC R-T 7 [facility] 2D INC INC W/WOM-MOD E COMPL SPEC&COLR D APPL 68870 [facility] MODALITY 7 [facility] 1/> AREAS INC INC TRACTION MECHANICA L THERAPEUT 50720 [facility] IC PX 1/> 7 [facility] AREAS INC INC EACH 15 MIN EXERCISES THERAPEUT 15246 [facility] IC PX 1/> 7 [facility] AREAS INC INC EACH 15 MIN EXERCISES APPL 79432 [facility] MODALITY 7 [facility] 1/> AREAS INC INC TRACTION MECHANICA L APPL 35693 [facility] MODALITY 7 [facility] 1/> AREAS INC INC ULTRASOUN D [place] 15 [place] [address] [facility] THYROXINE 7 [facility] TOTAL INC INC COMPREHEN 59951 [facility] SIVE 7 [facility] METABOLIC INC INC PANEL COLLECTIO 97673 [facility] N VENOUS 7 [facility] [place]OD [place] [address] [facility] THYROID 7 [facility] STIMULATI INC INC NG HORMONE TSH ECG 98250 [facility] ROUTINE 7 [facility] ECG INC INC W/LEAST 12 LDS TRCG ONLY W/O I&R BLOOD 46087 [facility] COUNT 7 [facility] COMPLETE INC INC AUTO&AUTO DIFRNTL WBC HEMOGLOBI 53272 [facility] N 7 [facility] GLYCOSYLA INC INC PORSCHE A1C NATRIURET 79600 [facility] IC 7 [facility] PEPTIDE INC INC THERAPEUT 55688 [facility] IC PX 1/> 7 [facility] AREAS INC INC EACH 15 MIN EXERCISES APPL 03535 [facility] MODALITY 7 [facility] 1/> AREAS INC INC TRACTION MECHANICA L APPL 53322 [facility] MODALITY 7 [facility] 1/> AREAS INC INC ULTRASOUN D EA 15 MIN APPL 87376 [facility] MODALITY 7 [facility] 1/> AREAS INC INC ULTRASOUN D EA 15 MIN APPL 18079 [facility] MODALITY 7 [facility] 1/> AREAS INC INC TRACTION MECHANICA L THERAPEUT 10366 [facility] IC PX 1/> 7 [facility] AREAS INC INC EACH 15 MIN EXERCISES THERAPEUT 59988 [facility] IC PX 1/> 7 [facility] AREAS INC INC EACH 15 MIN EXERCISES APPL 57391 [facility] MODALITY 7 [facility] 1/> AREAS INC INC TRACTION MECHANICA L APPL 73082 [facility] MODALITY 7 [facility] 1/> AREAS INC INC ULTRASOUN D EA 15 MIN APPL 31654 [facility] MODALITY 7 [facility] 1/> AREAS INC INC ULTRASOUN D EA 15 MIN APPL 78117 [facility] 7 [facility] 1/> AREAS INC INC TRACTION MECHANICA L PHYSICAL 20490 [facility] THERAPY 7 [facility] EVALUATIO INC INC N MOD COMPLEX 30 MINS SHOULDER L3650 [facility] 6 TECHNOLOG TECHNOLOG FIG 8 IES INC IES INC ABDUCT RESTRAINE R PREFAB ECHO 27782 CLARISSA JIMÉNEZ GILA TTHRC R-T 6 MEDICAL 2D SERV W/WOM-MOD FOUNDATIO E COMPL N SPEC&COLR D CATH 63402 CLARISSA RONALDO PLACEMENT 6 MEDICAL & NJX SERV CORONARY FOUNDATIO ART ANGIO N IMG S&I ECG 87235 [facility] ROUTINE 6 [facility] ECG INC INC W/LEAST 12 LDS TRCG ONLY W/O I&R CREATINE 19777 [facility] KINASE 6 [facility] [place] [address] [facility] LIPASE 6 [facility] [place] [address] [facility] TROPONIN 6 [facility] QUANTITAT INC INC SANIA BLOOD 88187 [facility] COUNT 6 [facility] COMPLETE INC INC AUTO&AUTO DIFRNTL WBC GROUND A0425 [address] PER AMBULANCE AMBULANCE STATUTE SE SE MILE INITIAL 68216 [facility] 6 NURSE CARE/DAY PRACTITIO 50 NER GR MINUTES THERAPEUT 05637 [facility] IC 6 [facility] INJECTION INC INC IV PUSH EACH NEW DRUG ECG 19636 CLARISSA MIRTHA ROUTINE 6 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 ECG SERV W/LEAST FOUNDATIO 12 LDS N I&R ONLY INSJ 51592 [facility] NON-TUNNE 6 PHYSICIAN SHERWIN LED S, [facility] CENTRAL VENOUS CATH AGE 5 YR/> [facility]ITICAL 65692 [facility] 6 PHYSICIAN SHERWIN ILL/INJUR S, [facility] ED PATIENT ADDL 30 MIN FIBRIN 88397 [facility] DGRADJ 6 [facility] PRODUCTS INC INC D-DIMER QUAL/SEMI ROLANDO COMPREHEN 79522 [facility] SIVE 6 [facility] METABOLIC INC INC PANEL THER 87599 [facility] PROPH/DX 6 [facility] NJX IV INC INC PUSH SINGLE/1S T SBST/DRUG CREATINE 21372 [facility] KINASE MB 6 [facility] FRACTION INC INC ONLY CRITICAL 82441 [facility] 6 PHYSICIAN SHERWIN ILL/INJUR S, PLLC ED PATIENT INIT 30-74 MIN INJECTION J2405 [facility] 6 [facility] ONDANSETR INC INC ON HCL PER 1 MG RADIOLOGI 91055 [place] MERHAR C 6 MEDICAL GAR EXAMINATI SERV ON CHEST FOUNDATIO SINGLE N VIEW FRONTAL AMB A0427 [facility]ICE 6 [facility] AMBULANCE AMBULANCE EMERGENCY SE SE TRANSPORT LEVEL 1 DUP-SCAN 33157 [facility] ALL XTR VEINS 6 MEDICAL IMAGING UNILATERA ASS L/LIMITED STUDY BLOOD 97701 [facility] OCCULT 5 [facility] PEROXIDAS URGENT E ACTV TREAT QUAL FECES 1 DETER COLLECTIO 18923 [facility] N VENOUS 5 [facility] BLOOD URGENT VENIPUNCT TREAT URE COLLECTIO 01063 [facility] N VENOUS 5 PHYSICIAN [place] [address] [facility] FREE 5 [facility] [place] [address] [facility] THYROID 5 [facility] STIMULATI INC INC NG HORMONE TSH 25 14193 [facility] HYDROXY 5 [facility] INCLUDES INC INC FRACTIONS IF PERFORMED COMPREHEN 10327 [facility] SIVE 5 [facility] METABOLIC INC INC PANEL LIPID 59216 [facility] PANEL 5 [facility] INC INC PROSTATE G0103 [facility] CANCER 5 [facility] SCREENING INC INC ; PSA TEST BLOOD 93945 [facility] COUNT 5 [facility] COMPLETE INC INC AUTO&AUTO DIFRNTL WBC DUP-SCAN 76833 [facility] XTR VEINS 5 [facility] INC INC UNILATERA L/LIMITED STUDY COMPREHEN 90734 [facility] SIVE 5 [facility] METABOLIC INC INC PANEL THROMBOPL 44499 [facility] ASTIN 5 [facility] TIME INC INC PARTIAL PLASMA/WH OLE BLOOD BLOOD 24583 [facility] COUNT 5 [facility] COMPLETE INC INC AUTO&AUTO DIFRNTL WBC THERAPEUT 54735 [facility] IC [address] [facility] PROPHYLAC INC INC TIC/DX INJECTION SUBQ/IM FIBRIN 05292 [facility] DGRADJ [address] [facility] PRODUCTS INC INC D-DIMER QUAL/SEMI ROLANDO PROTHROMB 98995 [facility] IN TIME 5 [facility] INC INC SEDIMENTA 35657 [facility] TION RATE 5 [facility] RBC INC INC NON-AUTOM ATED COLLECTIO 01515 [facility] N VENOUS 5 [facility] BLOOD INC INC VENIPUNCT URE COMPREHEN 90391 [facility] SIVE [address] [facility] METABOLIC INC INC PANEL RADEX 12799 [facility] RUBY FOREARM 2 4 MEDICAL KEVIN VIEWS IMAGING ASS BLOOD 97942 [facility] COUNT 4 [facility] COMPLETE INC INC AUTO&AUTO DIFRNTL WBC CULTURE 81210 [facility] BACTERIAL [address] [facility] BLOOD INC [place] AEROBIC W/[place] [address] [facility] INFUSION [address] [facility] THERAPY/P INC INC ROPHYLAXI S /DX 1ST TO 1 HR THERAPEUT 30405 [facility] IC [address] [facility] INJECTION INC INC IV PUSH EACH [place] DRUG IM ADM 03603 [facility] PRQ ID 4 [facility] SUBQ/IM INC INC NJXS 1 VACCINE TDAP 79680 [facility] VACCINE [address] [facility] YRS/> IM INC INC LARYNGOSC 89520 [place] OPY 4 MEDICAL ALEJANDRE FLEXIBLE SERV DIAGNOSTI FOUNDATIO C N RADIOLOGI 48553 [facility] C EXAM 4 MEDICAL EVELINE CHEST 2 IMAGING VIEWS ASS FRONTAL&L ATERAL ECG 88942 [facility] ROUTINE 4 MACY MARIBELL ECG EMERGENCY W/LEAST PHYS 12 LDS I&R ONLY RADEX 50474 [place] NICKELS HAND 4 MEDICAL JACKLYN MINIMUM 3 SERV VIEWS FOUNDATIO Encounters Encounter Start End Date Code Location Performer Type Date OFFICE 43100 [facility] NIKKI OUTPATIEN 7 7 PHYSICIAN T VISIT S GROUP 15 MINUTES [facility]OSPITAL [facility] - 7 7 [facility] OUTPATIEN [facility] RUSS - 7 7 [facility] INPATIENT [facility] EMERGENCY 49251 TONE JORDAN DEPT 7 7 PHYSICIAN VISIT S, PLLC HIGH SEVERITY& THREAT FUNJ OFFICE 15354 [facility] NIKKI OUTPATIEN 7 7 PHYSICIAN T VISIT S GROUP 25 MINUTES [facility] RUSS - 7 7 [facility] OUTPATIEN [facility] RUSS - 7 7 [facility] OUTPATIEN [facility] RUSS - 7 7 [facility]PATI[facility] RUSS - 7 7 [facility]PATIEN [facility] RUSS - 7 7 [facility] OUTPATIEN [facility] OFFICE 31811 [facility] NIKKI OUTPATIEN 7 7 PHYSICIAN T VISIT S GROUP 25 MINUTES [facility] RUSS - 7 7 [facility] OUTPATIEN [facility] OFFICE 06270 RACHAEL MAC OUTPATIEN 7 7 HEALTH T VISIT SOLUTIONS 25 IN MINUTES OFFICE 36070 RACHAEL MAC OUTPATIEN 7 7 HEALTH T VISIT SOLUTIONS 15 IN MINUTES OFFICE 98281 RACHAEL MAC OUTPATIEN 7 7 HEALTH T VISIT SOLUTIONS 25 IN MINUTES OFFICE 68053 RACHAEL MAC OUTPATIEN 6 6 HEALTH T VISIT SOLUTIONS 15 IN MINUTES OFFICE 22471 RACHAEL MAC OUTPATIEN 6 6 HEALTH T VISIT SOLUTIONS 15 IN MINUTES OFFICE 17358 CLARISSA KENYONA OUTPATIEN 6 6 MEDICAL T VISIT SERV 15 FOUNDATIO MINUTES N EMERGENCY 32692 [facility] DEPT 6 6 [facility] VISIT INC HIGH SEVERITY& THREAT FUN [facility]OSP[facility] - 6 6 [facility] OUTPATIEN INC T EMERGENCY 96827 CLARISSA SALLIE 6 6 [facility]ICAL [facility] SERV T VISIT FOUNDATIO HIGH/URGE N NT SEVERITY OFFICE 33630 [facility] OUTPATIEN 6 6 [facility] T VISIT URGENT 15 TREAT MINUTES [facility]OSPITAL [facility] - 6 6 [facility] OUTPATIEN INC T OFFICE 07786 [place] OUTPATIEN 6 6 [facility] T VISIT URGENT 25 TREAT MINUTES [facility]PITAL [facility] - 5 5 [facility] OUTPATIEN INC T OFFICE 38027 [place] OUTPATIEN 5 5 [facility] T VISIT URGENT 25 TREAT MINUTES OFFICE 68813 [facility] OUTPATIEN 5 5 PHYSICIAN MARIBELL T VISIT S GROUP 25 MINUTES HOSPITAL [facility] - 5 5 [facility] OUTPATIEN INC T OFFICE 80651 [facility] 5 5 PHYSICIAN MARIBELL T VISIT S GROUP 15 MINUTES HOSPITAL [facility] - 5 5 [facility] OUTPATIEN INC T EMERGENCY 07571 [facility] 5 5 [facility] DEPARTMEN INC T VISIT LOW/MODER SEVERITY [facility]OSPITAL [facility] - 5 5 [facility] OUTPATIEN INC T EMERGENCY 38669 [facility] JORDAN 5 5 [facility] ALLIANCE T VISIT P MODERATE SEVERITY HOSPITAL [facility] - 4 4 [facility] OUTPATIEN INC T EMERGENCY 10524 [facility] 4 4 [facility] ALL[facility]ANCE T VISIT P MODERATE SEVERITY OFFICE 05083 [place] OUTPATIEN 4 4 MEDICAL ALEJANDRE T NEW 45 SERV MINUTES FOUNDATIO N EMERGENCY 22262 [facility] DEPT 4 4 MACY MARIBELL VISIT EMERGENCY HIGH PHYS SEVERITY& THREAT [facility] OFFICE 41083 GIRMA RAYO OUTPATIEN 4 4 SHERWIN VANESSA 30 MINUTES
--- OUTSIDE RECORDS SUMMARY | 2017-06-21 19:40 | External Medical Summary Rpt ---
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 Name Role Phone [employer] Unavailable Unavailable INC, [employer] Unavailable Unavailable INC, [employer] MONTERO ALEJANDRE, MONTERO Unavailable Unavailable ALEJANDRE BEINEKE EVELINE, BEINEKE Unavailable Unavailable EVELINE KIERAN, KIERAN Unavailable Unavailable ROLDAN, ROLDAN Unavailable Unavailable ROLDAN ALL, ROLDAN ALL Unavailable Unavailable SALLIE ADRIEN, SALLIE Unavailable Unavailable ADRIEN [facility] Unavailable Unavailable SERVICE, [facility] Unavailable Unavailable SERVICE, [facility] RUBY KEVIN, Unavailable Unavailable RUBY KEVIN FALLS CAN, FALLS CAN Unavailable Unavailable FRYMAN, FRYMAN Unavailable Unavailable NIKKI, NIKKI Unavailable Unavailable NIKKI MARIBELL, NIKKI Unavailable Unavailable MARIBELL [facility] Unavailable Unavailable INC, [facility] Unavailable Unavailable HOSPITAL P, [facility] P [facility], Unavailable Unavailable [facility] MAC, MAC Unavailable Unavailable MAC NAN, MAC Unavailable Unavailable NAN [facility] Unavailable Unavailable IMAGING ASS, [facility] S NURSE Unavailable Unavailable PRACTITIONER GR, KMS[facility] NURSE PRACTITIONER GR [facility] Unavailable Un[facility], [facility] JIMÉNEZ GILA, JIMÉNEZ GILA Unavailable Unavailable RONALDO, RONALDO Unavailable Unavailable ALINE JR DWI, ALINE Unavailable Unavailable JR DWI GIRMA SHERWIN, GIRMA Unavailable Unavailable SHERWIN GIRMA SHERWIN, GIRMA Unavailable Unavailable SHERWIN [facility] Unavailable Unavailable AMBULANCE SE, [facility] AMBULANCE SE [facility] Unavailable Unavailable URGENT TREAT, [facility] NICKELS JACKLYN, NICKELS Unavailable Unavailable JACKLYN [facility], Unavailable Unavailable PLL[facility], [facility] PETTEY, PETTEY Unavailable Unavailable RENUSCH SHERWIN, RENUSCH Unavailable Unavailable [facility] Unavailable Unavailable [facility] PH[facility], [facility] Unavailable Unavailable SOLUTIONS IN, [facility] [place] Purpose Continuity of Care Document - 04-26-2014 through 2016 Problems Code Diagnosis DOS Provider Status [id number] CELLULITIS 04-09-2017 [facility] E119 TYPE 2 05-23-2017 [facility] MELLITUS INC WITHOUT COMPLICATIO NS E785 HYPERLIPIDE 04-06-2017 [facility] UNSPECIFIED INC I10 ESSENTIAL 04-06-2017 [facility] HYPERTENSIO INC N 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 Z720 TOBACCO USE 04-06-2017 [facility] INC [id number] CELLULITIS 04-01-2017 [facility] RIGHT PHYSICIANS UPPER LIMB GROUP R05 COUGH 04-01-2017 [facility] R918 OTHER 04-01-2017 [facility] NONSPECIFIC [facility]ICAL ABNORMAL IMAGING ASS FINDING OF LUNG FIELD Z452 ENCOUNTER 04-01-2017 [facility] MGMT IMAGING ASS VASCULAR ACCESS DEVICE B9562 METHICILLIN 03-31-2017 [facility] STAPH INF INC CAUSE DZ CLASS ELSW E118 TYPE 2 03-31-2017 [facility], MELLITUS PLLC W/UNS COMPLICATIO NS Z794 FDC 03-31-2017 [facility] CURRENT USE PHYSICIANS, OF INSULIN PLLC I208 OTHER FORMS 03-25-2017 [facility] OF ANGINA PHYSICIANS PECTORIS GROUP 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 DELIAD SEMINOLE 03-25-2017 [facility] COR ART PHYSICIANS W/OTH FORMS GROUP ANGINA PECTORIS [id number] DELIAD [place] 03-25-2017 [facility] W/UNS [...] [facility] INC R011 CARDIAC 03-10-2017 [facility] MURMUR PHYSICIANS UNSPECIFIED GROUP R5383 OTHER 03-10-2017 [facility] FATIGUE PHYSICIANS GROUP J208 ACUTE 02-15-2017 [facility] DUE TO SOLUTIONS OTHER SPEC IN ORGANISMS H6503 ACUTE 01-13-2017 [facility] SEROUS [facility] OTITIS SOLUTIONS MEDIA IN BILATERAL F53580 PAIN IN 01-13-2017 [facility] RIGHT LEG HEALTH SOLUTIONS IN O81815 PAIN IN 01-13-2017 [facility] LEFT LEG HEALTH SOLUTIONS IN [id number] SPRAIN RT 11-03-2016 [facility] ACROMIOCLAV [facility] ICULAR SOLUTIONS JOINT IN SUBSQT ENC J12990 PAIN IN 10-28-2016 [facility] UNSPECIFIED HEALTH SHOULDER SOLUTIONS IN [id number] CONTUSION 10-22-2016 [facility] OF RIGHT TECHNOLOGIE SHOULDER S INC INITIAL ENCOUNTER G4700 INSOMNIA 06-10-2016 [facility] 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 [facility] SERV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 S42180 PAIN IN LEG 06-10-2016 [facility] UNSPECIFIED FOUNDATION 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-25-[address] [facility] [place] E639 NUTRITIONAL 04-25-2016 [facility] NURSE DEFICIENCY PRACTITIONE R GR UNSPECIFIED E878 OTHER D/O 04-25-2016 [facility] NURSE OF PRACTITIONE ELECTROLYTE R GR AND FLUID BALANCE NEC I517 CARDIOMEGAL 04-25-2016 [facility] Y [facility] R079 CHEST PAIN 04-25-2016 [facility] UNSPECIFIED [facility] AMBULANCE SE R112 NAUSEA WITH 04-25-2016 [facility] VOMITING [facility] UNSPECIFIED AMBULANCE SE R531 WEAKNESS 04-25-2016 [facility] AMBULANCE SE R61 GENERALIZED 04-25-2016 [facility] HYPERHIDROS AMBULANCE IS SE R7989 OTHER SPEC 04-25-2016 [facility] ABNORMAL AMBULANCE FINDINGS SERVICE BLOOD CHEMISTRY R9431 ABNORMAL 04-25-2016 [facility] ELECTROCARD SERV IOGRAM FOUNDATION F43279 CELLULITIS 03-04-2016 [facility] LEFT [facility] LOWER LIMB URGENT TREAT O83147 PAIN IN 02-27-2016 [facility] LEFT THIGH [facility] INC M7989 OTHER 02-27-2016 [facility] SPECIFIED MEDICAL SOFT TISSUE IMAGING ASS DISORDERS R600 LOCALIZED 02-27-2016 [facility] 93342 DIAB W/O 07-30-2015 [facility] COMP TYPE [facility] II/UNS NOT URGENT STATED TREAT UNCNTRL 89810 HYPERTROPHY 07-30-2015 [facility] PROSTATE [facility] W/UR OBST & URGENT OTH LUTS TREAT 55396 URINARY 07-30-2015 [facility] FREQUENCY [facility] URGENT TREAT 6829 CELLULITIS 02-04-2015 [facility]SCESS PHYSICIANS OF GROUP UNSPECIFIED SITE 09783 OTHER 02-04-2015 [facility] FATIGUE INC 7823 EDEMA 02-04-2015 [facility] 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 V770 SCREENING 02-04-2015 [facility] FOR THYROID [facility] DISORDER INC V7791 SCREENING 02-04-2015 [facility] FOR LIPOID PHYSICIANS DISORDERS GROUP V781 SCREENING 02-04-2015 [facility] OTHER&UNSPE PHYSICIANS CIFIED GROUP DEFICIENCY ANEMIA 7295 PAIN IN 12-06-2014 [facility] [place] SOFT MEDICAL TISSUES OF IMAGING ASS LIMB 32798 SWELLING OF 12-06-2014 [facility]B [facility] INC 6826 CELLULITIS 12-05-2014 [facility] AND ABSCESS [facility] P EXCEPT FOOT V146 PERSONAL 12-05-2014 [facility] HISTORY OF [facility] ALLERGY TO [facility] P ANALGESIC AGENT 64878 OPEN WOUND 10-24-2014 [facility] COMPLICATED E8490 PLACE OF 10-24-2014 [facility] OCCURRENCE, [facility] P E8859 FALL FROM 10-24-2014 [facility] OTHER [facility] TRIPPING OR STUMBLING 470 DEVIATED 10-18-2014 [facility] NASAL SERV SEPTUM FOUNDATION 84961 ESOPHAGEAL 10-18-2014 [facility] REFLUX [facility] 32928 LARYNGEAL 09-22-2014 [facility]ERG[facility] PHYS 85214 ASTHMA, 09-22-2014 [facility] UNSPECIFIED N EMERGENCY , PHYS UNSPECIFIED STATUS 20032 SHORTNESS 09-22-2014 [facility] MEDICAL IMAGING ASS 56297 OTHER 09-22-2014 [facility] DYSPNEA AND N EMERGENCY PHYS RESPIRATORY ABNORMALITI ES 6824 CELLULITIS& 04-26-2014 GIRMA COURTNEY ABSCESS OF HAND EXCEPT FINGERS&[place] [address] CERTAIN 04-26-2014 GIRMA COURTNEY ADVERSE EFFECTS NEC OTHER Medications Na ND [...] 80 3- 4- 00 00 RS ve NC 21 20 20 56 DE 61 17 17 36 FA 0 11 NC [address] MARTINS TA BL ET EA 91 07 08 30 30 00 SO Ac SY 23 -1 -0 .0 00 PE ti 70 3- 4- 00 00 RS ve CO 00 20 20 56 MF 10 17 17 60 FA OR 9 42 NC T LY 0. 5 DR ML UG SY RI NG E BU 00 07 07 34 22 00 RO Ac NE 05 -0 -2 .0 00 SS ti EN 40 6- 8- 00 01 ve OR [address] PH 91 17 17 91 UG IN 3 46 S -N AL OX ON 8- 2 MG SL ME 00 06 07 60 30 00 SO Ac TO 37 -2 -2 .0 00 PE ti NE 80 8- 1- 00 00 RS ve OL 01 20 20 56 OL 80 17 17 45 FA 5 37 NC TA LY RT RA DR TE UG 25 MG TA B BU 50 06 07 11 7 00 RO Ac NE 38 -2 -2 .0 00 SS ti EN 30 9- - 00 01 ve OR [address] PH 79 17 17 85 UG IN 3 19 S -N AL OX ON 8- 2 MG SL NO 00 06 07 20 30 00 SO Ac VO 16 -1 -0 .0 00 PE ti LI 91 4- 7- 00 00 RS ve N 83 20 20 53 70 71 17 17 88 FA -3 1 20 NC [address] UN UG IT /M L AL FR 99 06 07 50 25 00 SO Ac EE 07 -1 -0 .[address] 30 4- 7- 00 00 RS ve YL 70 20 20 53 E 82 17 17 88 FA LI 2 23 NC TE LY TE DR ST UG ST RI P BR 00 06 07 60 30 00 SO Ac IL 18 -1 -0 .0 00 PE ti IN 60 4- 7- 00 00 RS ve TA 77 20 20 53 76 17 17 88 FA 90 0 [address] TA UG BL ET FU 00 06 07 30 30 00 SO Ac RO 37 -1 -0 .0 00 PE ti SE 80 4- 7- 00 00 RS ve NC 21 20 20 56 DE 61 17 17 36 FA 0 11 NC [address] UG TA BL ET LI 68 06 07 30 30 00 SO Ac SI 18 -1 -0 .0 00 PE ti NO 00 4- 7- 00 00 RS ve NE 51 20 20 56 IL 70 17 17 59 FA 3 72 NC [address] UG TA BL ET AT 55 06 07 30 30 00 SO Ac OR 11 -1 -0 .0 00 PE ti VA 10 4- 7- [address] 12 20 20 56 AT 40 17 17 59 FA IN [address] MG UG TA BL ET ME 23 06 07 60 30 00 SO Ac TF 15 -1 -0 .0 00 PE ti OR 50 4- 7- 00 00 RS ve NC 10 20 20 56 N 21 17 17 59 FA HC 0 74 NC L LY [address] MG UG TA BL ET IN 57 06 07 30 30 00 SO Ac VICTORIA 51 -1 -0 .0 00 PE ti LI 50 4- 7- 00 00 RS ve N 17 20 20 56 SY 45 17 17 60 FA RI 9 42 NC N LY 0. 5 DR ML UG 31 GX 16 " BU 00 05 06 45 30 00 RO Ac NE 05 -3 -2 .0 00 SS ti EN 40 0- 3- 00 01 ve OR [address] PH 91 17 17 43 UG IN 3 04 S -N AL OX ON 8- 2 MG SL ME 00 03 20 60 30 00 SO Ac TO 37 -2 -1 .0 00 PE ti NE 80 3- 6- 00 00 RS ve OL 01 20 20 56 OL 80 17 17 45 FA 5 37 NC TA LY RT RA DR TE UG 25 MG TA B AT 00 06 30 30 00 SO Ac OR 37 -1 -0 .0 00 PE ti VA 83 5- 9- [address] 95 20 20 53 AT 30 17 17 88 FA IN [address] MG UG TA BL ET UL 08 06 60 30 00 SO Ac TR 88 -1 -0 .0 00 PE ti A 16 5- 9- 00 00 RS ve CO 09 20 20 53 MF 00 17 17 88 FA OR 4 21 NC T LY 0. 5 DR ML UG SY RI NG E LI 00 06 60 30 00 CL Ac NE 09 -2 -0 .0 00 IN ti ZO 38 0- 9- 00 00 IC ve LI 24 20 20 43 D 43 17 17 16 PH 60 4 30 AR 0 MA MG CY TA BL ET BU 00 05 06 26 14 00 RO Ac NE 05 -1 -0 .0 00 SS ti EN 40 6- 9- 00 01 ve OR [address] PH 91 17 17 29 UG IN 3 70 S -N AL OX ON 8- 2 MG SL BR 00 05 06 60 30 00 SO Ac IL 18 -0 -0 .0 00 PE ti IN 60 8- 2- 00 00 RS ve TA 77 20 20 53 76 17 17 88 FA 90 0 [address] TA UG BL ET ME 23 05 06 60 30 00 SO Ac TF 15 -0 -0 .0 00 PE ti OR 50 8- 2- 00 00 RS ve NC 10 20 20 54 N 21 17 17 66 FA HC 0 47 NC L LY [address] MG UG TA BL ET NO 00 05 06 20 30 00 SO Ac VO 16 -1 -0 .0 00 PE ti LI 91 0- 2- 00 00 RS ve N 83 20 20 53 70 71 17 17 88 FA -3 1 20 NC [address] UN UG IT /M L AL NI 00 05 06 28 28 00 SO Ac CO 53 -1 -0 .0 00 PE ti TI 65 1- 2- 00 00 RS ve NE 89 20 20 56 68 17 17 36 FA 21 8 01 NC LY MG /2 DR 4H UG R PA TC H LI 68 05 30 30 00 SO Ac SI 18 -1 -0 .0 00 PE ti NO 00 1- 2- 00 00 RS ve NE 51 20 20 53 IL 70 17 17 88 FA 3 18 NC [address] UG TA BL ET FU 00 05 30 30 00 SO Ac RO 37 -1 -0 .0 00 PE ti SE 80 1- 2- 00 00 RS ve NC 21 20 20 56 DE 61 17 17 36 FA 0 11 NC [address] UG TA BL ET CE 00 05 06 30 10 00 SO Ac PH 09 -1 -0 .0 00 PE ti AL 33 2- 2- 00 00 RS ve EX 14 20 20 56 IN 70 17 17 37 FA 5 44 NC [address] UG CA PS UL E NC 65 05 06 20 10 00 SO Ac NO 86 -1 -0 .0 00 PE ti CY 20 2- 2- 00 00 RS ve CL 21 20 20 56 IN 10 17 17 37 FA E 5 45 NC [address] UG CA PS UL E FR 99 05 05 50 25 00 SO Ac EE 07 -0 -2 .[address] 30 1- 6- 00 00 RS ve YL 70 20 20 53 E 82 17 17 88 FA LI 2 23 NC TE LY TE DR ST UG ST RI P BU 00 05 05 25 14 00 RO Ac NE 05 -0 -2 .0 00 SS ti EN 40 2- 6- 00 01 ve OR [address] PH 91 17 17 12 UG IN 3 07 S -N AL OX ON 8- 2 MG SL BU 00 04 05 9. 5 00 RO Ac NE 05 -2 -1 00 00 SS ti EN 40 7- 9- 0 01 ve OR [address] PH 91 17 17 06 UG IN 3 97 S -N AL OX ON 8- 2 MG SL ET 51 04 05 60 30 00 SO Ac OD 67 -1 -1 .0 00 PE ti OL 24 8- 2- 00 00 RS ve AC 01 20 20 56 80 17 17 17 FA 40 1 42 NC [address] TA UG BL ET ME 00 04 05 30 30 00 SO Ac TO 37 -2 -1 .0 00 PE ti NE 80 0- 2- 00 00 RS ve OL 01 20 20 53 OL 80 17 17 88 FA 5 16 NC TA LY RT RA DR TE UG 25 MG TA B FU 00 04 05 30 30 00 SO Ac RO 37 -2 -1 .0 00 PE ti SE 80 1- 2- 00 00 RS ve NC 20 20 20 54 DE 81 17 17 69 FA 0 98 NC [address] UG TA BL ET NO 00 04 05 20 30 00 SO Ac VO 16 -0 -0 .0 00 PE ti LI 91 8- 5- 00 00 RS ve N 83 20 20 53 70 71 17 17 88 FA -3 1 20 NC [address] UN UG IT /M L AL BR 00 03 05 60 30 00 SO Ac IL 18 -2 -0 .0 00 PE ti IN 60 7- 5- 00 00 RS ve TA 77 20 20 53 76 17 17 88 FA 90 0 [address] TA UG BL ET ME 23 03 05 60 30 00 SO Ac TF 15 -2 -0 .0 00 PE ti OR 50 7- 5- 00 00 RS ve NC 10 20 20 54 N 21 17 17 66 FA HC 0 47 NC L LY [address] MG UG TA BL ET AZ 00 04 05 6. 5 00 SO Ac IT 78 -0 -0 00 00 PE ti HR 11 3- 5- 0 00 RS ve OM 49 20 20 56 YC 66 17 17 04 FA IN 8 75 NC LY [address] MG UG TA BL ET NE 00 04 05 12 5 00 SO Ac OM 60 -0 -0 0. 00 PE ti ET 31 3- 5- 00 00 RS ve GARCIA 58 20 20 0 56 ZI 65 17 17 04 FA NE 8 77 NC -D LY M SY DR RU UG P BU 00 04 05 30 15 00 RO Ac NE 05 -1 -0 .0 00 SS ti EN 40 2- 5- 00 01 ve OR [address] PH 91 17 17 87 UG IN 3 54 S -N AL OX ON 8- 2 MG SL UL 08 04 05 60 30 00 SO Ac TR 88 -1 -0 .0 00 PE ti A 16 0- 5- 00 00 RS ve CO 09 20 20 53 MF 00 17 17 88 FA OR 4 21 NC T LY 0. 5 DR ML UG SY RI NG E AT 00 04 05 30 30 00 SO Ac OR 37 -1 -0 .0 00 PE ti VA 83 4- 5- [address] 95 20 20 53 AT 30 17 17 88 FA IN [address] MG UG TA BL ET LI 68 04 05 30 30 00 SO Ac SI 18 -1 -0 .0 00 PE ti NO 00 4- 5- 00 00 RS ve NE 51 20 20 53 IL 70 17 17 88 FA 3 18 NC [address] UG TA BL ET ME 00 03 04 30 30 00 SO Ac TO 37 -2 -1 .0 00 PE ti NE 80 0- 4- 00 00 RS ve OL 01 20 20 53 OL 80 17 17 88 FA 5 16 NC TA LY RT RA DR TE UG 25 MG TA B BU 50 03 04 15 7 00 RO Ac NE 38 -2 -1 .0 00 SS ti EN 30 3- 4- 00 01 ve OR [address] PH 79 17 17 61 UG IN 3 02 S -N AL OX ON 8- 2 MG SL AT 00 03 04 30 30 00 SO Ac OR 37 -1 -0 .0 00 PE ti VA 83 3- 7- [address] 95 20 20 53 AT 30 17 17 88 FA IN [address] MG UG TA BL ET LI 68 03 04 30 30 00 SO Ac SI 18 -1 -0 .0 00 PE ti NO 00 3- 7- 00 00 RS ve NE 51 20 20 53 IL 70 17 17 88 FA 3 18 NC [address] UG TA BL ET ET 51 03 04 60 30 00 SO Ac OD 67 -1 -0 .0 00 PE ti OL 24 4- 7- 00 00 RS ve AC 01 20 20 55 80 17 17 87 FA 40 1 19 NC [address] TA UG BL ET CY 00 03 04 30 30 00 SO Ac CL 60 -1 -0 .0 00 PE ti OB 33 4- 7- 00 00 RS ve EN 07 20 20 55 ZA 82 17 17 87 FA NE 1 20 NC IN LY E 5 DR MG UG TA BL ET FU 00 03 04 30 30 00 SO Ac RO 37 -1 -0 .0 00 PE ti SE 80 5- 7- 00 00 RS ve NC 20 20 20 54 DE 81 17 17 69 FA 0 98 NC [address] UG TA BL ET BU 00 03 04 15 7 00 RO Ac NE 05 -1 -0 .0 00 SS ti [...] 17 17 88 FA SY 8 21 NC RI LY N 0. DR 5 UG ML 28 GX 1/ 2" BU 50 03 03 15 7 00 RO Ac NE 38 -0 -3 .0 00 SS ti [...] 17 17 88 FA -3 1 20 NC [address] UN UG IT /M L AL FL 00 03 03 16 30 00 SO Ac UT 05 -0 -2 .0 00 PE ti IC 43 1- 4- 00 00 RS ve 27 20 20 55 ON 09 17 17 76 FA E 9 53 NC NE LY OP DR 50 UG MC G SP RA Y DI 61 03 03 60 30 00 SO Ac CL 44 -0 -2 .0 00 PE ti OF 20 1- 4- 00 00 RS ve EN 10 20 20 55 AC 31 17 17 76 FA 0 54 NC SO LY D DR DR UG 75 MG TA B CE 16 03 03 14 14 00 SO Ac TI 57 -0 -2 .0 00 PE ti RI 10 1- 4- 00 00 RS ve ZI 40 20 20 55 NE 25 17 17 76 FA 0 55 NC HC LY L 10 DR UG MG TA BL ET TI 57 03 03 30 30 00 SO Ac ZA 66 -0 -2 .0 00 PE ti NI 40 1- 4- 00 00 RS ve DI 50 20 20 55 NE 31 17 17 76 FA 8 56 NC HC LY L 4 DR MG UG TA BL ET BU 00 03 03 15 7 00 RO Ac NE 05 -0 -2 .0 00 SS ti EN 40 2- 4- 00 01 ve OR [address] PH 91 17 17 33 UG IN 3 57 S -N AL OX ON 8- 2 MG SL ME 00 02 03 30 30 00 SO Ac TO 37 -1 -1 .0 00 PE ti NE 80 0- 0- 00 00 RS ve OL 01 20 20 53 OL 80 17 17 88 FA 5 16 NC TA LY RT RA DR TE UG 25 MG TA B AT 00 02 03 30 30 00 SO Ac OR 37 -1 -1 .0 00 PE ti VA 83 0- 0- [address] 95 20 20 53 AT 30 17 17 88 FA IN [address] MG UG TA BL ET BR 00 02 03 60 30 00 SO Ac IL 18 -1 -1 .0 00 PE ti IN 60 0- 0- 00 00 RS ve TA 77 20 20 53 76 17 17 88 FA 90 0 [address] TA UG BL ET LI 68 02 03 30 30 00 SO Ac SI 18 -1 -1 .0 00 PE ti NO 00 0- 0- 00 00 RS ve NE 51 20 20 53 IL 70 17 17 88 FA 3 18 NC [address] UG TA BL ET FU 02 03 30 30 00 SO Ac RO 37 -1 -1 .0 00 PE ti SE 80 0- 0- 00 00 RS ve NC 20 20 20 54 DE 81 17 17 69 FA 0 98 NC [address] UG TA BL ET CI 02 03 30 30 00 SO Ac TA 37 -1 -1 .0 00 PE ti LO 86 0- 0- 00 00 RS ve NE 23 20 20 54 AM 20 17 17 22 FA 5 33 NC HB LY R 20 DR UG MG TA BL ET MO 02 03 60 30 00 SO Ac NO 88 -1 -1 .0 00 PE ti JE 16 0- 0- [address] 09 20 20 53 23 17 17 88 FA SY 1 21 NC RI LY NG E DR 0. UG 5 ML ME 23 02 03 60 30 00 SO Ac TF 15 -1 -1 .0 00 PE ti OR 50 4- 0- 00 00 RS ve NC 10 20 20 54 N 21 17 17 66 FA HC 0 47 NC L LY [address] MG UG TA BL ET AT 00 02 30 30 00 SO Ac OR 37 -1 -0 .0 00 PE ti VA 83 2- 3- [address] 95 20 20 53 AT 30 17 17 88 FA IN [address] MG UG TA BL ET LI 68 02 30 30 00 SO Ac SI 18 -1 -0 .0 00 PE ti NO 00 2- 3- 00 00 RS ve NE 51 20 20 53 IL 70 17 17 88 FA 3 18 NC [address] UG TA BL ET ME 00 02 30 30 00 SO Ac TO 37 -1 -0 .0 00 PE ti NE 80 3- 3- 00 00 RS ve OL 01 20 20 53 OL 80 17 17 88 FA 5 16 NC TA LY RT RA DR TE UG 25 MG TA B FU 02 30 30 00 SO Ac RO 37 -1 -0 .0 00 PE ti SE 80 3- 3- 00 00 RS ve NC 20 20 20 54 DE 81 17 17 69 FA 0 98 NC [address] UG TA BL ET NO 00 02 20 30 00 SO Ac VO 16 -1 -0 .0 00 PE ti LI 91 3- 3- 00 00 RS ve N 83 20 20 53 70 71 17 17 88 FA -3 1 20 NC [address] UN UG IT /M L AL MO 08 02 60 30 00 SO Ac NO 88 -1 -0 .0 00 PE ti JE 16 3- 3- [address] 09 20 20 53 23 17 17 88 FA SY 1 21 NC RI LY NG E DR 0. UG 5 ML BR 00 10 15 60 30 00 SO Ac IL 18 -2 -2 .0 00 PE ti IN 60 9- 0- 00 00 RS ve TA 77 20 20 53 76 16 17 88 FA 90 0 [address] TA UG BL ET ME 60 30 00 SO Ac TF 15 -2 -2 .0 00 PE ti OR 50 9- 0- 00 00 RS ve NC 10 20 20 54 N 21 16 17 66 FA HC 0 47 NC L LY [address] MG UG TA BL ET NO 01 20 30 00 SO Ac VO 16 -1 -0 .0 00 PE ti LI 91 2- 9- 00 00 RS ve N 83 20 20 53 70 71 16 17 88 FA -3 1 20 NC [address] UN UG IT /M L AL MO 08 12 01 60 30 00 SO Ac NO 88 -1 -0 .0 00 PE ti JE 16 2- 9- [address] 09 20 20 53 23 16 17 88 FA SY 1 21 NC RI LY NG E DR 0. UG 5 ML ME 00 12 30 30 00 SO Ac TO 37 -1 -0 .0 00 PE ti NE 80 2- 9- 00 00 RS ve OL 01 20 20 53 OL 80 16 17 88 FA 5 16 NC TA LY RT RA DR TE UG 25 MG TA B FU 00 12 30 30 00 SO Ac RO 37 -1 -0 .0 00 PE ti SE 80 2- 9- 00 00 RS ve NC 20 20 20 54 DE 81 16 17 69 FA 0 98 NC [address] UG TA BL ET CI 00 12 30 30 00 SO Ac TA 37 -1 -0 .0 00 PE ti LO 86 2- 9- 00 RS ve NE 23 20 20 54 AM 20 16 17 22 FA 5 33 NC HB LY R 20 DR UG MG TA BL ET AT 00 12 30 30 00 SO Ac OR 37 -1 -0 .0 00 PE ti VA 83 - 9- [address] 95 20 20 53 AT 30 16 17 88 FA IN [address] MG UG TA BL ET LI 57 12 30 30 00 SO Ac SI 23 -1 -0 .0 00 PE ti NO 70 2- 9- 00 00 RS ve NE 05 20 20 53 IL 79 16 17 88 FA 9 18 NC [address] UG TA BL ET TR 57 12 01 60 15 00 SO Ac AM 66 -1 -0 .0 00 PE ti AD 40 4- 9- 00 00 RS ve OL 37 20 20 55 71 16 17 10 FA HC 8 21 NC L LY 50 DR MG UG TA BL ET DI 16 12 60 30 00 SO Ac CL 57 -1 -0 .0 00 PE ti OF 10 4- 9- 00 00 RS ve EN 20 20 20 55 AC 11 16 17 10 FA 1 28 NC SO LY D EC DR UG 75 MG TA B Immunization Name Date Rout CVX Reac Dose Comm Prov Is Faci e tion ent ider Refu lity Give sed n TDAP 12-1 115 JESSY No JESSY 0-20 [facility] V[facility] 14 [facility] INE 7 HOSP HOSP YRS/ INC INC > IM Procedures Procedure DOS Code Location Performer Comment ECG 49536 [facility] ROUTINE [facility] ECG INC INC W/LEAST 12 LDS TRCG ONLY W[facility] 28681 [facility] DISCHARGE 7 PHYSICIAN DAY S GROUP MANAGEMEN T 30 MIN/< SBSQ 34226 [facility] 7 PHYSICIAN CARE/DAY S GROUP [address] [facility] INPATIENT 7 PHYSICIAN CONSULT S GROUP NEW/ESTAB PT 40 MIN RADIOLOGI 12670 [facility] C EXAM 7 MEDICAL CHEST 2 IMAGING VIEWS ASS FRONTAL&L ATERAL INCISION 85297 [facility] PETTEY & 7 PHYSICIAN DRAINAGE S GROUP ABSCESS COMPLICAT ED/MULTIP LE INSERTION [id number] [facility] INFUSION 7 [facility] DEVICE INC INC LT BASILIC VEIN PERQ DRAINAGE [id number] [facility] RIGHT 7 [facility] UPPER ARM INC INC SUBQ TISSUE FASCIA OPEN INITIAL 92222 [facility] 7 PHYSICIAN CARE/DAY S GROUP 50 MINUTES APPL 49743 [facility] MODALITY 7 [facility] 1/> AREAS INC INC TRACTION MECHANICA L THERAPEUT 46843 [facility] IC PX 1/> 7 [facility] AREAS INC INC EACH 15 MIN EXERCISES THERAPEUT 16610 [facility] NIKKI IC 7 PHYSICIAN PROPHYLAC S GROUP TIC/DX INJECTION SUBQ/IM INJECTION J0696 [facility] NIKKI 7 PHYSICIAN CEFTRIAXO S GROUP NE SODIUM PER 250 MG GLUC BLD 63051 [facility] GLUC MNTR 7 [facility] DEV INC INC CLEARED FDA SPEC HOME USE CATH PLMT 09989 [facility] L HRT & 7 [facility] ARTS INC INC W/NJX & ANGIO IMG S&I GUIDE C1769 [facility] WIRE 7 [facility] INC INC CLOSURE C1760 [facility] DEVICE 7 [facility] VASCULAR INC INC ECG 32647 [facility] ROUTINE 7 [facility] ECG INC INC W/LEAST 12 LDS TRCG ONLY W/O I&R APPL 38535 [facility] MODALITY 7 [facility] 1/> AREAS INC INC TRACTION MECHANICA L THERAPEUT 67921 [facility] IC PX 1/> 7 [facility] AREAS INC INC EACH 15 MIN EXERCISES ECHO 02052 [facility] TTHRC R-T 7 [facility] 2D INC INC W/WOM-MOD E COMPL SPEC&COLR D THERAPEUT 95986 [facility] IC PX 1/> 7 [facility] AREAS INC INC EACH 15 MIN EXERCISES APPL 21377 [facility] MODALITY 7 [facility] 1/> AREAS INC INC TRACTION MECHANICA L APPL 03884 [facility] MODALITY 7 [facility] 1/> AREAS INC INC TRACTION MECHANICA L THERAPEUT 12477 [facility] IC PX 1/> 7 [facility] AREAS INC INC EACH 15 MIN EXERCISES APPL 58236 [facility] MODALITY 7 [facility] 1/> AREAS INC INC ULTRASOUN D EA 15 MIN BLOOD 61599 [facility] COUNT 7 [facility] COMPLETE INC INC AUTO&[place] [address] [facility] THYROXINE 7 [facility] [place] [address] [facility] THYROID 7 [facility] STIMULATI INC INC NG HORMONE TSH COLLECTIO 49299 [facility] N VENOUS 7 [facility] BLOOD INC INC VENIPUNCT URE ECG 59369 [facility] ROUTINE 7 [facility] ECG INC INC W/LEAST 12 LDS TRCG ONLY W/O I&R HEMOGLOBI 14465 [facility] N 7 [facility] GLYCOSYLA INC INC PORSCHE A1C NATRIURET 81132 [facility] IC 7 [facility] PEPTIDE INC INC COMPREHEN 79834 [facility] SIVE 7 [facility] METABOLIC INC INC PANEL APPL 10724 [facility]ALITY 7 [facility] 1/> AREAS INC INC TRACTION MECHANICA L THERAPEUT 17345 [facility] IC PX 1/> 7 [facility] AREAS INC INC EACH 15 MIN EXERCISES APPL 52595 [facility] MODALITY 7 [facility] 1/> AREAS INC INC ULTRASOUN D EA 15 MIN APPL 62410 [facility] MODALITY 7 [facility] 1/> AREAS INC INC ULTRASOUN D EA 15 MIN THERAPEUT 30250 [facility] IC PX 1/> 7 [facility] AREAS INC INC EACH 15 MIN EXERCISES APPL 47710 [facility] MODALITY 7 [facility] 1/> AREAS INC INC TRACTION MECHANICA L APPL 70420 [facility] 7 [facility]/> AREAS INC INC TRACTION MECHANICA L THERAPEUT 67838 [facility] IC PX 1/> 7 [facility] AREAS INC INC EACH 15 MIN EXERCISES APPL 83854 [facility] MODALITY 7 [facility] 1/> AREAS INC INC ULTRASOUN D EA 15 MIN APPL 32024 [facility] MODALITY 7 [facility] 1/> AREAS INC INC ULTRASOUN D EA 15 MIN APPL 92628 [facility] MODALITY 7 [facility] 1/> AREAS INC INC TRACTION MECHANICA L PHYSICAL 96508 [facility] THERAPY 7 [facility] EVALUATIO INC INC N MOD COMPLEX 30 MINS SHOULDER L3650 [facility] 6 TECHNOLOG TECHNOLOG FIG 8 IES INC IES INC ABDUCT RESTRAINE R PREFAB ECHO 33370 [place] JIMÉNEZ GILA TTHRC R-T 6 MEDICAL 2D SERV W/WOM-MOD FOUNDATIO E COMPL N SPEC&COLR D CATH 35279 [place] RONALDO PLACEMENT 6 MEDICAL & NJX SERV CORONARY FOUNDATIO ART ANGIO N IMG S&I ECG 07164 [facility] ROUTINE 6 [facility] ECG INC INC W/LEAST 12 LDS TRCG ONLY W/O I&R GROUND A0425 [facility] PER SERVICE SERVICE STATUTE MILE INITIAL 23268 [facility] 6 NURSE CARE/DAY PRACTITIO 50 NER GR MINUTES BLOOD 08030 [facility] COUNT 6 [facility] COMPLETE INC INC AUTO&AUTO DIFRNTL WBC THERAPEUT 84889 [facility] IC 6 [facility] INJECTION INC INC IV PUSH EACH NEW DRUG CRITICAL 26832 [facility] CARE 6 PHYSICIAN SHERWIN ILL/INJUR S, [facility] PATIENT ADDL 30 MIN THER 10029 [facility] PROPH/DX 6 [facility] NJX IV INC INC PUSH SINGLE/1S T SBST/DRUG FIBRIN 31509 [facility] DGRADJ 6 [facility] PRODUCTS INC INC D-DIMER QUAL/SEMI ROLANDO CRITICAL 62417 [facility] 6 PHYSICIAN SHERWIN ILL/INJUR S, [facility] ED PATIENT INIT 30-74 [place] [address] [facility] TROPONIN 6 [facility] QUANTITAT INC INC SANIA ECG 20284 R[facility] MIRELES JR ROUTINE 6 [facility] W/LEAST P 12 LDS I&R ONLY INJECTION J2405 [facility] 6 [facility] ONDANSETR INC INC ON HCL PER 1 MG INSJ 93744 [facility] NON-TUNNE 6 PHYSICIAN SHERWIN LED S, [facility] CENTRAL VENOUS CATH AGE 5 YR/> CREATINE 81333 [facility] KINASE 6 [facility] [place] [address] [facility] LIPASE 6 [facility] INC INC AMB A[address] [facility] SERVICE 6 AMBULANCE AMBULANCE ALS SERVICE SERVICE EMERGENCY TRANSPORT LEVEL 1 RADIOLOGI 79464 [place] [facility] C 6 MEDICAL EXAMINATI IMAGING ON CHEST ASS SINGLE VIEW FRONTAL CREATINE 00106 [facility] KINASE MB 6 [facility] FRACTION INC INC ONLY COMPREHEN 06479 [facility] SIVE 6 [facility] METABOLIC INC INC PANEL DUP-SCAN 39658 [place] [facility] XTR VEINS 6 MEDICAL IMAGING UN[place]ATERA ASS L/LIMITED STUDY COLLECTIO 11976 [facility] N VENOUS [facility] BLOOD URGENT VENIPUNCT TREAT URE BLOOD 23583 [facility] OCCULT 5 [facility] NAN PEROXIDAS URGENT E ACTV TREAT QUAL FECES 1 DETER LIPID 44767 [facility] PANEL 5 [facility] INC INC COMPREHEN 31752 [facility] SIVE 5 [facility] METABOLIC INC INC PANEL 25 54264 [facility] HYDROXY 5 [facility] INCLUDES INC INC FRACTIONS IF PERFORMED BLOOD 60116 [facility] COUNT 5 [facility] COMPLETE INC INC AUTO&AUTO DIFRNTL WBC PROSTATE G0103 [facility] CANCER 5 [facility] SCREENING INC INC ; PSA TEST COLLECTIO 83234 [facility] NIKKI N VENOUS 5 PHYSICIAN MARIBELL B[place] [address] [facility] FREE 5 [facility] [place] [address] [facility] THYROID 5 [facility] STIMULATI INC INC NG HORMONE TSH DUP-SCAN 72602 [place] [facility] XTR VEINS 5 MEDICAL KEVIN IMAGING [place]A ASS L/LIMITED STUDY COLLECTIO 94803 [facility] N VENOUS 5 [facility] BLOOD INC INC VENIPUNCT URE BLOOD 72749 [facility] COUNT 5 [facility] COMPLETE INC INC AUTO&AUTO DIFRNTL WBC PROTHROMB 03976 [facility] IN TIME 5 [facility] INC INC SEDIMENTA 46820 [facility] TION RATE 5 [facility] RBC INC INC NON-AUTOM ATED THERAPEUT 41407 RUSSMILES SOLAN[facility] IC 5 [facility] PROPHYLAC INC INC TIC/DX INJECTION SUBQ/IM FIBRIN 32774 RUSSMILES SOLAN[facility] DGRADJ 5 [facility] PRODUCTS INC INC D-DIMER QUAL/SEMI ROLANDO THROMBOPL 57478 [facility]USS ASTIN 5 [facility] TIME INC INC PARTIAL PLASMA/WH OLE BLOOD COMPREHEN 75590 [facility] SIVE 5 [facility] METABOLIC INC INC PANEL COMPREHEN 47974 [facility] SIVE 4 [facility] METABOLIC INC INC PANEL CULTURE 60303 [facility] BACTERIAL 4 [facility] BLOOD INC [place] AEROBIC W/[place] [address] [facility] INFUSION 4 [facility] THERAPY/P INC INC ROPHYLAXI S /DX 1ST TO 1 HR THERAPEUT 53968 [facility] RUSS IC 4 [facility] INJECTION INC INC IV PUSH EACH NEW DRUG BLOOD 92058 [facility] COUNT 4 [facility] COMPLETE INC INC AUTO&AUTO DIFRNTL WBC IM ADM 47947 [facility] PRQ ID 4 [facility] SUBQ/IM INC INC NJXS 1 VACCINE TDAP 30325 [facility] VACCINE 7 4 [facility] YRS/> IM INC INC RADEX 64580 [facility]USS RUSS FOREARM 2 4 [facility] VIEWS INC INC LARYNGOSC 19936 [place] OPY 4 MEDICAL ALEJANDRE FLEXIBLE SERV DIAGNOSTI FOUNDATIO C N ECG 37973 GABRIELE JORDAN ROUTINE 4 MACY MARIBELL ECG EMERGENCY W/LEAST PHYS 12 LDS I&R ONLY RADIOLOGI 86667 [facility] C EXAM 4 MEDICAL EVELINE CHEST 2 IMAGING VIEWS ASS FRONTAL&L ATERAL RADEX 50939 [place] NICKELS HAND 4 MEDICAL JACKLYN MINIMUM 3 SERV VIEWS FOUNDATIO Encounters Encounter Start End Date Code Location Performer Type Date OFFICE 29472 [facility] NIKKI DALY 7 7 PHYSICIAN T VISIT S GROUP 15 MINUTES HOSPITAL R[facility] - 7 7 [facility]PATI[facility] - 7 7 [facility] INPATIENT INC EMERGENCY 60388 TONE JORDAN DEPT 7 7 PHYSICIAN VISIT S, PLLC HIGH SEVERITY& THREAT FUNJ OFFICE 57704 [facility] NIKKI DALY 7 7 PHYSICIAN T VISIT S GROUP 25 MINUTES HOSPITAL [facility] - 7 7 [facility] OUTPATIEN [facility] RUSS - 7 7 [facility] OUTPATIEN INC T [facility] - 7 7 [facility]PATIEN INC T [facility] - 7 7 [facility] OUTPATIEN INC T OFFICE 08599 [facility] NIKKI OUTPATIEN 7 7 PHYSICIAN T VISIT S GROUP 25 MINUTES HOSPITAL [facility] - 7 7 [facility] OUTPATIEN INC [facility] - 7 7 [facility]EN [facility] T [facility] 58951 [facility]UT[facility] 25 IN MINUTES OFFICE 83586 [facility] T VISIT SOLUTIONS 15 IN MINUTES OFFICE 90966 [facility] T VISIT SOLUTIONS 25 IN MINUTES OFFICE 44873 [facility] T VISIT SOLUTIONS 15 IN MINUTES OFFICE 37721 [facility] T VISIT SOLUTIONS 15 IN MINUTES OFFICE 69370 CLARISSA ALCARAZ OUTPATIEN 6 6 MEDICAL T VISIT SERV 15 FOUNDATIO MINUTES [facility] RUSS - 6 6 [facility] OUTPATIEN INC T EMERGENCY 19117 CLARISSA RIZO 6 6 MEDICAL ADRIEN DEPARTMEN SERV T VISIT FOUNDATIO HIGH/URGE N NT SEVERITY EMERGENCY 44670 [facility] DEPT 6 6 [facility] VISIT INC HIGH SEVERITY& THREAT FUNCJ OFFICE 63828 [facility] T VISIT URGENT 15 TREAT MINUTES [facility]OSPITAL [facility] - 6 6 [facility] OUTPATIEN INC T OFFICE 16695 [facility] T VISIT URGENT 25 TREAT MINUTES [facility] - 5 5 [facility] OUTPATIEN INC T OFFICE 33847 [facility] 5 5 [facility] T VISIT URGENT 25 TREAT MINUTES [facility]OSPITAL [facility] - 5 5 [facility] OUTPATIEN INC T OFFICE 29185 [facility] NIKKI OUTPATIEN 5 5 PHYSICIAN MARIBELL T VISIT S GROUP 25 MINUTES OFFICE 68293 [facility] NIKKI OUTPATIEN 5 5 PHYSICIAN MARIBELL T VISIT S GROUP 15 MINUTES HOSPITAL [facility] - 5 5 [facility] OUTPATI[facility] INC T EMERGENCY 33321 [facility] 5 5 [facility] T VISIT LOW/MODER SEVERITY [facility]OSPITAL [facility] - 5 5 [facility] OUT[facility]IEN [facility] T EMERGENCY 75434 [facility] JORDAN 5 5 [facility] T VISIT P MODERATE SEVERITY EMERGENCY 02486 [facility] JORDAN 4 4 [facility] T VISIT P MODERATE SEVERITY HOSPITAL R[facility] - 4 4 [facility] OUTPATIEN [facility] T OFFICE 26325 CLARISSA MONTERO OUTPATIEN 4 4 KAYLEN ESPITIA 45 SERV MINUTES FOUNDATIO N EMERGENCY 04930 [facility] DEPT 4 4 MACY MARIBELL VISIT EMERGENCY HIGH PHYS SEVERITY& THREAT FUN OFFICE 59656 GIRMA RAYO OUTPATIEN 4 4 SHERWIN VANESSA 30 MINUTES
--- OUTSIDE RECORDS SUMMARY | 2017-06-21 19:40 | External Medical Summary Rpt ---
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 Name Role Phone [employer] Unavailable Unavailable INC, [employer] Unavailable Unavailable INC, [employer] MONTERO ALEJANDRE, MONTERO Unavailable Unavailable ALEJANDRE BEINEKE EVELINE, BEINEKE Unavailable Unavailable EVELINE KIERAN, KIERAN Unavailable Unavailable ROLDAN, ROLDAN Unavailable Unavailable ROLDAN ALL, ROLDAN ALL Unavailable Unavailable SALLIE ADRIEN, SALLIE Unavailable Unavailable ADRIEN [facility] Unavailable Unavailable SERVICE, [facility]available Unavailable SERVICE, [facility] RUBY KEVIN, Unavailable Unavailable RUBY KEVIN FALLS CAN, FALLS CAN Unavailable Unavailable FRYMAN, FRYMAN Unavailable Unavailable NIKKI, NIKKI Unavailable Unavailable NIKKI MARIBELL, NIKKI Unavailable Unavailable [facility] Unavailable Unavailable INC, [facility] Unavailable Unavailable HOSPITAL P, [facility]ITAL P [facility], Unavailable Unavailable [facility] MAC, MAC Unavailable Unavailable MAC NAN, MAC Unavailable Unavailable NAN [facility] Unavailable Unavailable IMAGING ASS, [facility] NURSE Unavailable Unavailable PRACTITIONER GR, KMSF NURSE PRACTITIONER GR [facility] Un[facility] Un[facility] JIMÉNEZ GILA, JIMÉNEZ GILA Unavailable Unavailable RONALDO, RONALDO Unavailable Unavailable ALINE JR DWI, ALINE Unavailable Unavailable JR DWI GIRMA SHERWIN, GIRMA Unavailable Unavailable SHERWIN GIRMA SHERWIN, GIRMA Unavailable Unavailable SHERWIN [facility] Unavailable Unavailable AMBULANCE SE, [facility] AMBULANCE SE [facility] Unavailable Unavailable URGENT TREAT, [facility] NICKELS JACKLYN, NICKELS Unavailable Unavailable JACKLYN [facility], Unavailable Unavailable [facility], [facility] PETTEY, PETTEY Unavailable Unavailable RENUSCH SHERWIN, RENUSCH Unavailable Unavailable [facility] Unavailable Unavailable [facility], [facility] Unavailable Unavailable SOLUTIONS IN, [employer] [place] Purpose Continuity of Care Document - 04-26-2014 through 2016 Problems Code Diagnosis DOS Provider Status L0390 CELLULITIS 04-09-2017 [facility] GROUP E119 TYPE 2 05-23-2017 [facility] MELLITUS INC WITHOUT COMPLICATIO NS E785 HYPERLIPIDE 04-06-2017 [facility] UNSPECIFIED INC I10 ESSENTIAL 04-06-2017 [facility] HYPERTENSIO INC N 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 Z720 TOBACCO USE 04-06-2017 [facility] INC [id number] CELLULITIS 04-01-2017 [facility] OF RIGHT PHYSICIANS UPPER LIMB GROUP R05 COUGH 04-01-2017 [facility] R918 OTHER 04-01-2017 [facility] NONSPECIFIC [facility] ABNORMAL IMAGING ASS FINDING OF LUNG FIELD Z452 ENCOUNTER 04-01-2017 [facility] VASCULAR ACCESS DEVICE B9562 METHICILLIN 03-31-2017 [facility] STAPH INF INC CAUSE DZ CLASS ELSW E118 TYPE 2 03-31-2017 [facility], MELLITUS PLLC W/UNS COMPLICATIO NS Z794 JAIL 03-31-2017 [facility] CURRENT USE PHYSICIANS, OF INSULIN PLLC I208 OTHER FORMS 03-25-2017 [facility] OF ANGINA PHYSICIANS PECTORIS GROUP 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 V67955 MELVINDALED EKUK 03-25-2017 [facility] W/UNS [...] PAIN [facility] INC R011 CARDIAC 03-10-2017 [facility] MURMUR PHYSICIANS UNSPECIFIED GROUP R5383 OTHER 03-10-2017 [facility] FATIGUE PHYSICIANS GROUP J208 ACUTE 02-15-2017 [facility]ON[facility] DUE TO SOLUTIONS OTHER SPEC IN ORGANISMS H6503 ACUTE 01-13-2017 [facility] SEROUS [facility] OTITIS SOLUTIONS MEDIA IN BILATERAL R68796 PAIN IN 01-13-2017 [facility] RIGHT LEG [facility] SOLUTIONS IN K48781 PAIN IN 01-13-2017 [facility] LEFT LEG HEALTH SOLUTIONS IN [id number] SPRAIN RT 11-03-2016 [facility] ACROMIOCLAV [facility] ICULAR SOLUTIONS JOINT IN SUBSQT ENC Y64602 PAIN IN 10-28-2016 [facility] UNSPECIFIED HEALTH SHOULDER SOLUTIONS IN [id number] CONTUSION 10-22-2016 [facility] OF RIGHT TECHNOLOGIE SHOULDER S INC INITIAL ENCOUNTER G4700 INSOMNIA 06-10-2016 [facility] 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 X11066 PAIN IN LEG 06-10-2016 [facility] 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-25-2016 [facility] P WITH HYPERGLYCEM [place] E639 NUTRITIONAL 04-25-2016 [facility] NURSE DEFICIENCY PRACTITIONE R GR UNSPECIFIED E878 OTHER D/O 04-25-2016 [facility] NURSE OF PRACTITIONE ELECTROLYTE R GR AND FLUID BALANCE NEC I517 CARDIOMEGAL 04-25-2016 [facility] R079 CHEST PAIN 04-25-2016 [facility] UNSPECIFIED REPLACED BY [facility] AMBULANCE SE R112 NAUSEA WITH 04-25-2016 [facility] VOMITING REPLACED BY [facility] UNSPECIFIED AMBULANCE SE R531 WEAKNESS 04-25-2016 [facility] AMBULANCE SE R61 GENERALIZED 04-25-2016 [facility] HYPERHIDROS AMBULANCE IS SE R7989 OTHER SPEC 04-25-2016 [facility] ABNORMAL AMBULANCE FINDINGS SERVICE BLOOD CHEMISTRY R9431 ABNORMAL 04-25-2016 [facility]OCARD [facility] IOGRAM [facility] I37774 CELLULITIS 03-04-2016 [facility] LEFT REPLACED BY [facility] LOWER LIMB URGENT TREAT X99294 PAIN IN 02-27-2016 [facility] LEFT [facility]IGH [facility] INC M7989 OTHER 02-27-2016 [facility] SPECIFIED [facility]ICAL SOFT TISSUE IMAGING ASS DISORDERS R600 LOCALIZED 02-27-2016 [facility] 01679 DIAB W/O 07-30-2015 [facility] COMP TYPE REPLACED BY [facility] II/UNS NOT URGENT STATED TREAT UNCNTRL 26768 HYPERTROPHY 07-30-2015 [facility] PROSTATE REPLACED BY [facility] W/UR OBST & URGENT OTH LUTS TREAT 12903 URINARY 07-30-2015 [facility] FREQUENCY REPLACED BY [facility] URGENT TREAT 6829 CELLULITIS 02-04-2015 [facility] AND ABSCESS PHYSICIANS OF GROUP UNSPECIFIED SITE 60214 OTHER 02-04-2015 [facility] FATIGUE INC 7823 EDEMA 02-04-2015 [facility] 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 V770 SCREENING 02-04-2015 [facility] FOR THYROID [facility] DISORDER INC V7791 SCREENING 02-04-2015 [facility] FOR LIPOID PHYSICIANS DISORDERS GROUP V781 SCREENING 02-04-2015 [facility] OTHER&UNSPE PHYSICIANS CIFIED GROUP DEFICIENCY ANEMIA 7295 PAIN IN 12-06-2014 [facility] SOFT MEDICAL TISSUES OF IMAGING ASS LIMB 38356 SWELLING OF 12-06-2014 [facility]B [facility] INC 6826 CELLULITIS 12-05-2014 [facility] AND ABSCESS [facility] P EXCEPT FOOT V146 PERSONAL 12-05-2014 [facility] HISTORY OF [facility] P ANALGESIC AGENT 05490 OPEN WOUND 10-24-2014 [facility] COM[facility] E8490 PLACE OF 10-24-2014 [facility] OCCURRENCE, [facility] P E8859 FALL FROM 10-24-2014 [facility] OTHER [facility] P TRIPPING OR STUMBLING 470 DEVIATED 10-18-2014 [facility]PTUM [facility] 78713 ESOPHAGEAL 10-18-2014 [facility] 09654 LARYNGEAL 09-22-2014 [facility] 66775 ASTHMA, 09-22-2014 [facility] UNSPECIFIED N EMERGENCY , PHYS UNSPECIFIED STATUS 58214 SHORTNESS 09-22-2014 [facility] MEDICAL IM[facility] 35146 OTHER 09-22-2014 [facility] DYSPNEA AND N EMERGENCY PHYS RESPIRATORY ABNORMALITI ES 6824 CELLULITIS& 04-26-2014 GIRMA COURTNEY ABSCESS OF HAND EXCEPT FINGERS&[place] [address] CERTAIN 04-26-2014 [facility] COURTNEY ADVERSE EFFECTS NEC [...] 80 3- 4- 00 00 RS ve TN 21 20 20 56 DE 61 17 17 36 FA 0 11 TN [address] MARTINS TA BL ET EA 91 07 08 30 30 00 SO Ac SY 23 -1 -0 .0 00 PE ti 70 3- 4- 00 00 RS ve CO 00 20 20 56 MF 10 17 17 60 FA OR 9 42 TN T LY 0. 5 DR ML UG SY RI NG E BU 00 07 07 34 22 00 RO Ac UT 05 -0 -2 .0 00 SS ti EN 40 6- 8- 00 01 ve OR [address] PH 91 17 17 91 UG IN 3 46 S -N AL OX ON 8- 2 MG SL ME 00 06 07 60 30 00 SO Ac TO 37 -2 -2 .0 00 PE ti UT 80 8- 1- 00 00 RS ve OL 01 20 20 56 OL 80 17 17 45 FA 5 37 TN TA LY RT RA DR TE UG 25 MG TA B BU 50 06 07 11 7 00 RO Ac UT 38 -2 -2 .0 00 SS ti [...] 17 17 88 FA -3 1 20 TN [address] UN UG IT /M L AL FR 99 06 07 50 25 00 SO Ac EE 07 -1 -0 .[address] 30 4- 7- 00 00 RS ve YL 70 20 20 53 E 82 17 17 88 FA LI 2 23 TN TE LY TE DR ST UG ST RI P BR 00 06 07 60 30 00 SO Ac IL 18 -1 -0 .0 00 PE ti IN 60 4- 7- 00 00 RS ve TA 77 20 20 53 76 17 17 88 FA 90 0 [address] TA UG BL ET FU 00 06 07 30 30 00 SO Ac RO 37 -1 -0 .0 00 PE ti SE 80 4- 7- 00 00 RS ve TN 21 20 20 56 DE 61 17 17 36 FA 0 11 TN [address] UG TA BL ET LI 68 06 07 30 30 00 SO Ac SI 18 -1 -0 .0 00 PE ti NO 00 4- 7- 00 00 RS ve UT 51 20 20 56 IL 70 17 17 59 FA 3 72 TN [address] UG TA BL ET AT 55 06 07 30 30 00 SO Ac OR 11 -1 -0 .0 00 PE ti VA 10 4- 7- [address] 12 20 20 56 AT 40 17 17 59 FA IN 5 [address] [place] [address] MG UG TA BL ET ME 23 06 07 60 30 00 SO Ac TF 15 -1 -0 .0 00 PE ti OR 50 4- 7- 00 00 RS ve TN 10 20 20 56 N 21 17 17 59 FA HC 0 74 TN L LY [address] MG UG TA BL ET IN 57 06 07 30 30 00 SO Ac VICTORIA 51 -1 -0 .0 00 PE ti LI 50 4- 7- 00 00 RS ve N 17 20 20 56 SY 45 17 17 60 FA RI 9 42 TN N LY 0. 5 DR ML UG 31 GX 16 " BU 00 05 06 45 30 00 RO Ac UT 05 -3 -2 .0 00 SS ti EN 40 0- 3- 00 01 ve OR [address] PH 91 17 17 43 UG IN 3 04 S -N AL OX ON 8- 2 MG SL ME 00 03 20 60 30 00 SO Ac TO 37 -2 -1 .0 00 PE ti UT 80 3- 6- 00 00 RS ve OL 01 20 20 56 OL 80 17 17 45 FA 5 37 TN TA LY RT RA DR TE UG 25 MG TA B AT 00 06 30 30 00 SO Ac OR 37 -1 -0 .0 00 PE ti VA 83 5- 9- [address] 95 20 20 53 AT 30 17 17 88 FA IN 5 [address] [place] [address] MG UG TA BL ET UL 08 06 60 30 00 SO Ac TR 88 -1 -0 .0 00 PE ti A 16 5- 9- 00 00 RS ve CO 09 20 20 53 MF 00 17 17 88 FA OR 4 21 TN T LY 0. 5 DR ML UG [...] 05 06 26 14 00 RO Ac UT 05 -1 -0 .0 00 SS ti [...] 17 17 88 FA 90 0 [address] TA UG BL ET ME 23 05 06 60 30 00 SO Ac TF 15 -0 -0 .0 00 PE ti OR 50 8- 2- 00 00 RS ve TN 10 20 20 54 N 21 17 17 66 FA HC 0 47 TN L LY [address] MG UG TA BL ET NO 00 05 06 20 30 00 SO Ac VO 16 -1 -0 .0 00 PE ti LI 91 0- 2- 00 00 RS ve N 83 20 20 53 70 71 17 17 88 FA -3 1 20 TN [address] UN UG IT /M L AL NI 00 05 06 28 28 00 SO Ac CO 53 -1 -0 .0 00 PE ti TI 65 1- 2- 00 00 RS ve NE 89 20 20 56 68 17 17 36 FA 21 8 01 TN LY MG /2 DR 4H UG R PA TC H LI 68 05 30 30 00 SO Ac SI 18 -1 -0 .0 00 PE ti NO 00 1- 2- 00 00 RS ve UT 51 20 20 53 IL 70 17 17 88 FA 3 18 TN [address] UG TA BL ET FU 00 05 30 30 00 SO Ac RO 37 -1 -0 .0 00 PE ti SE 80 1- 2- 00 00 RS ve TN 21 20 20 56 DE 61 17 17 36 FA 0 11 TN [address] UG TA BL ET CE 00 05 06 30 10 00 SO Ac PH 09 -1 -0 .0 00 PE ti AL 33 2- 2- 00 00 RS ve EX 14 20 20 56 IN 70 17 17 37 FA 5 44 TN [address] UG CA PS UL E TN 65 05 06 20 10 00 SO Ac NO 86 -1 -0 .0 00 PE ti CY 20 2- 2- 00 00 RS ve CL 21 20 20 56 IN 10 17 17 37 FA E 5 45 TN [address] UG CA PS UL E FR 99 05 05 50 25 00 SO Ac EE 07 -0 -2 .[address] 30 1- 6- 00 00 RS ve YL 70 20 20 53 E 82 17 17 88 FA LI 2 23 TN TE LY TE DR ST UG ST RI P BU 00 05 05 25 14 00 RO Ac UT 05 -0 -2 .0 00 SS ti EN 40 2- 6- 00 01 ve OR [address] PH 91 17 17 12 UG IN 3 07 S -N AL OX ON 8- 2 MG SL BU 00 04 05 9. 5 00 RO Ac UT 05 -2 -1 00 00 SS ti [...] 17 17 17 FA 40 1 42 TN [address] TA UG BL ET ME 00 04 05 30 30 00 SO Ac TO 37 -2 -1 .0 00 PE ti UT 80 0- 2- 00 00 RS ve OL 01 20 20 53 OL 80 17 17 88 FA 5 16 TN TA LY RT RA DR TE UG 25 MG TA B FU 00 04 05 30 30 00 SO Ac RO 37 -2 -1 .0 00 PE ti SE 80 1- 2- 00 00 RS ve TN 20 20 20 54 DE 81 17 17 69 FA 0 98 TN [address] UG TA BL ET NO 00 04 05 20 30 00 SO Ac VO 16 -0 -0 .0 00 PE ti LI 91 8- 5- 00 00 RS ve N 83 20 20 53 70 71 17 17 88 FA -3 1 20 TN [address] UN UG IT /M L AL BR 00 03 05 60 30 00 SO Ac IL 18 -2 -0 .0 00 PE ti IN 60 7- 5- 00 00 RS ve TA 77 20 20 53 76 17 17 88 FA 90 0 [address] TA UG BL ET ME 23 03 05 60 30 00 SO Ac TF 15 -2 -0 .0 00 PE ti OR 50 7- 5- 00 00 RS ve TN 10 20 20 54 N 21 17 17 66 FA HC 0 47 TN L LY [address] MG UG TA BL ET AZ 00 04 05 6. 5 00 SO Ac IT 78 -0 -0 00 00 PE ti HR 11 3- 5- 0 00 RS ve OM 49 20 20 56 YC 66 17 17 04 FA IN 8 75 TN LY [address] MG UG TA BL ET UT 00 04 05 12 5 00 SO Ac OM 60 -0 -0 0. 00 PE ti ET 31 3- 5- 00 00 RS ve GARCIA 58 20 20 0 56 ZI 65 17 17 04 FA NE 8 77 TN -D LY M SY DR RU UG P BU 00 04 05 30 15 00 RO Ac UT 05 -1 -0 .0 00 SS ti [...] 17 17 88 FA OR 4 21 TN T LY 0. 5 DR ML UG SY RI NG E AT 00 04 05 30 30 00 SO Ac OR 37 -1 -0 .0 00 PE ti VA 83 4- 5- [address] 95 20 20 53 AT 30 17 17 88 FA IN 5 [address] [place] [address] MG UG TA BL ET LI 68 04 05 30 30 00 SO Ac SI 18 -1 -0 .0 00 PE ti NO 00 4- 5- 00 00 RS ve UT 51 20 20 53 IL 70 17 17 88 FA 3 18 TN [address] UG TA BL ET ME 00 03 04 30 30 00 SO Ac TO 37 -2 -1 .0 00 PE ti UT 80 0- 4- 00 00 RS ve OL 01 20 20 53 OL 80 17 17 88 FA 5 16 TN TA LY RT RA DR TE UG 25 MG TA B BU 50 03 04 15 7 00 RO Ac UT 38 -2 -1 .0 00 SS ti [...] 17 17 88 FA IN 5 [address] [place] [address] MG UG TA BL ET LI 68 03 04 30 30 00 SO Ac SI 18 -1 -0 .0 00 PE ti NO 00 3- 7- 00 00 RS ve UT 51 20 20 53 IL 70 17 17 88 FA 3 18 TN [address] UG TA BL ET ET 51 03 04 60 30 00 SO Ac OD 67 -1 -0 .0 00 PE ti OL 24 4- 7- 00 00 RS ve AC 01 20 20 55 80 17 17 87 FA 40 1 19 TN [address] TA UG BL ET CY 00 03 04 30 30 00 SO Ac CL 60 -1 -0 .0 00 PE ti OB 33 4- 7- 00 00 RS ve EN 07 20 20 55 ZA 82 17 17 87 FA UT 1 20 TN IN LY E 5 DR MG UG TA BL ET FU 00 03 04 30 30 00 SO Ac RO 37 -1 -0 .0 00 PE ti SE 80 5- 7- 00 00 RS ve TN 20 20 20 54 DE 81 17 17 69 FA 0 98 TN [address] UG TA BL ET BU 00 03 04 15 7 00 RO Ac UT 05 -1 -0 .0 00 SS ti [...] 17 17 88 FA SY 8 21 TN RI LY N 0. DR 5 UG ML 28 GX 1/ 2" BU 50 03 03 15 7 00 RO Ac UT 38 -0 -3 .0 00 SS ti [...] 17 17 88 FA -3 1 20 TN [address] UN UG IT /M L AL FL 00 03 03 16 30 00 SO Ac UT 05 -0 -2 .0 00 PE ti IC 43 1- 4- 00 00 RS ve 27 20 20 55 ON 09 17 17 76 FA E 9 53 TN UT LY OP DR 50 UG MC G SP RA Y DI 61 03 03 60 30 00 SO Ac CL 44 -0 -2 .0 00 PE ti OF 20 1- 4- 00 00 RS ve EN 10 20 20 55 AC 31 17 17 76 FA 0 54 [place] SO LY D DR DR UG 75 MG TA B CE 16 03 03 14 14 00 SO Ac TI 57 -0 -2 .0 00 PE ti RI 10 1- 4- 00 00 RS ve ZI 40 20 20 55 NE 25 17 17 76 FA 0 55 TN HC LY L 10 DR UG MG TA BL ET TI 57 03 03 30 30 00 SO Ac ZA 66 -0 -2 .0 00 PE ti NI 40 1- 4- 00 00 RS ve DI 50 20 20 55 NE 31 17 17 76 FA 8 56 TN HC LY L 4 DR MG UG TA BL ET BU 00 03 03 15 7 00 RO Ac UT 05 -0 -2 .0 00 SS ti EN 40 2- 4- 00 01 ve OR [address] PH 91 17 17 33 UG IN 3 57 S -N AL OX ON 8- 2 MG SL ME 00 02 03 30 30 00 SO Ac TO 37 -1 -1 .0 00 PE ti UT 80 0- 0- 00 00 RS ve OL 01 20 20 53 OL 80 17 17 88 FA 5 16 TN TA LY RT RA DR TE UG 25 MG TA B AT 00 02 03 30 30 00 SO Ac OR 37 -1 -1 .0 00 PE ti VA 83 0- 0- [address] 95 20 20 53 AT 30 17 17 88 FA IN 5 [address] [place] [address] MG UG TA BL ET BR 00 02 03 60 30 00 SO Ac IL 18 -1 -1 .0 00 PE ti IN 60 0- 0- 00 00 RS ve TA 77 20 20 53 76 17 17 88 FA 90 0 [address] TA UG BL ET LI 68 02 03 30 30 00 SO Ac SI 18 -1 -1 .0 00 PE ti NO 00 0- 0- 00 00 RS ve UT 51 20 20 53 IL 70 17 17 88 FA 3 18 TN [address] UG TA BL ET FU 02 03 30 30 00 SO Ac RO 37 -1 -1 .0 00 PE ti SE 80 0- 0- 00 00 RS ve TN 20 20 20 54 DE 81 17 17 69 FA 0 98 TN [address] UG TA BL ET CI 02 03 30 30 00 SO Ac TA 37 -1 -1 .0 00 PE ti LO 86 0- 0- 00 00 RS ve UT 23 20 20 54 AM 20 17 17 22 FA 5 33 TN HB LY R 20 DR UG MG TA BL ET MO 02 03 60 30 00 SO Ac NO 88 -1 -1 .0 00 PE ti JE 16 0- 0- [address] 20 20 53 23 17 17 88 FA SY 1 21 TN RI LY NG E DR 0. UG 5 ML ME 23 02 03 60 30 00 SO Ac TF 15 -1 -1 .0 00 PE ti OR 50 4- 0- 00 00 RS ve TN 10 20 20 54 N 21 17 17 66 FA HC 0 47 TN L LY [address] MG UG TA BL ET AT 00 02 30 30 00 SO Ac OR 37 -1 -0 .0 00 PE ti VA 83 2- 3- [address] 95 20 20 53 AT 30 17 17 88 FA IN 5 [address] [place] [address] [address] MG UG TA BL ET LI 68 02 30 30 00 SO Ac SI 18 -1 -0 .0 00 PE ti NO 00 2- 3- 00 00 RS ve UT 51 20 20 53 IL 70 17 17 88 FA 3 18 TN [address] UG TA BL ET ME 00 02 30 30 00 SO Ac TO 37 -1 -0 .0 00 PE ti UT 80 3- 3- 00 00 RS ve OL 01 20 20 53 OL 80 17 17 88 FA 5 16 TN TA LY RT RA DR TE UG 25 MG TA B FU 02 30 30 00 SO Ac RO 37 -1 -0 .0 00 PE ti SE 80 3- 3- 00 00 RS ve TN 20 20 20 54 DE 81 17 17 69 FA 0 98 TN [address] UG TA BL ET NO 00 02 20 30 00 SO Ac VO 16 -1 -0 .0 00 PE ti LI 91 3- 3- 00 00 RS ve N 83 20 20 53 70 71 17 17 88 FA -3 1 20 TN [address] UN UG IT /M L AL MO 08 02 60 30 00 SO Ac NO 88 -1 -0 .0 00 PE ti JE 16 3- 3- [address] 09 20 20 53 23 17 17 88 FA SY 1 21 TN RI LY NG E DR 0. UG 5 ML BR 00 10 15 60 30 00 SO Ac IL 18 -2 -2 .0 00 PE ti IN 60 9- 0- 00 00 RS ve TA 77 20 20 53 76 16 17 88 FA 90 0 [address] TA UG BL ET ME 60 30 00 SO Ac TF 15 -2 -2 .0 00 PE ti OR 50 9- 0- 00 00 RS ve TN 10 20 20 54 N 21 16 17 66 FA HC 0 47 TN L LY [address] MG UG TA BL ET NO 01 20 30 00 SO Ac VO 16 -1 -0 .0 00 PE ti LI 91 2- 9- 00 00 RS ve N 83 20 20 53 70 71 16 17 88 FA -3 1 20 TN [address] UN UG IT /M L AL MO 08 12 01 60 30 00 SO Ac NO 88 -1 -0 .0 00 PE ti JE 16 2- 9- [address] 20 20 53 23 16 17 88 FA SY 1 21 TN RI LY NG E DR 0. UG 5 ML ME 00 12 30 30 00 SO Ac TO 37 -1 -0 .0 00 PE ti UT 80 2- 9- 00 00 RS ve OL 01 20 20 53 OL 80 16 17 88 FA 5 16 TN TA LY RT RA DR TE UG 25 MG TA B FU 00 12 30 30 00 SO Ac RO 37 -1 -0 .0 00 PE ti SE 80 2- 9- 00 00 RS ve TN 20 20 20 54 DE 81 16 17 69 FA 0 98 TN [address] UG TA BL ET CI 00 12 30 30 00 SO Ac TA 37 -1 -0 .0 00 PE ti LO 86 2- 9- 00 RS ve UT 23 20 20 54 AM 20 16 17 22 FA 5 33 TN HB LY R 20 DR UG MG TA BL ET AT 00 12 30 30 00 SO Ac OR 37 -1 -0 .0 00 PE ti VA 83 - 9- [address] 95 20 20 53 AT 30 16 17 88 FA IN 5 [address] [place] [address] MG UG TA BL ET LI 57 12 30 30 00 SO Ac SI 23 -1 -0 .0 00 PE ti NO 70 2- 9- 00 00 RS ve UT 05 20 20 53 IL 79 16 17 88 FA 9 18 TN [address] UG TA BL ET TR 57 12 01 60 15 00 SO Ac AM 66 -1 -0 .0 00 PE ti AD 40 4- 9- 00 00 RS ve OL 37 20 20 55 71 16 17 10 FA HC 8 21 TN L LY 50 DR MG UG TA BL ET DI 16 12 60 30 00 SO Ac CL 57 -1 -0 .0 00 PE ti OF 10 4- 9- 00 00 RS ve EN 20 20 20 55 AC 11 16 17 10 FA 1 28 TN SO LY D EC DR UG 75 MG TA B Immunization Name Date Rout CVX Reac Dose Comm Prov Is Faci e tion ent ider Refu lity Give sed n TDAP 12-1 115 JESSY No JESSY 0-20 [facility] VACC 14 [facility] INE 7 [facility]P HOSP YRS/ INC INC > IM Procedures Procedure DOS Code Location Performer Comment ECG [id number] [facility] ROUTINE [facility] ECG INC INC W/LEAST 12 LDS TRCG ONLY [facility] 72210 [facility] DISCHARGE 7 PHYSICIAN DAY S GROUP MANAGEMEN T 30 MIN/< SBSQ 35639 [facility] 7 PHYSICIAN CARE/DAY S GROUP 15 MINUTES INITIAL 55776 [facility] INPATIENT 7 PHYSICIAN CONSULT S GROUP NEW/ESTAB PT 40 MIN RADIOLOGI 48662 [facility] EXAM 7 MEDICAL CHEST 2 IMAGING VIEWS ASS FRONTAL&L ATERAL INCISION 23175 [facility] & 7 PHYSICIAN DRAINAGE S GROUP ABSCESS COMPLICAT ED/MULTIP LE INSERTION [id number] [facility] INFUSION 7 [facility] DEVICE INC INC LT BASILIC VEIN PERQ DRAINAGE [id number] [facility] RIGHT 7 [facility] UPPER ARM INC INC SUBQ TISSUE FASCIA OPEN INITIAL 99069 [facility] 7 PHYSICIAN CARE/DAY S GROUP 50 MINUTES APPL 87100 [facility] MODALITY 7 [facility] 1/> AREAS INC INC TRACTION MECHANICA L THERAPEUT 38547 [facility] IC PX 1/> 7 [facility] AREAS INC INC EACH 15 MIN EXERCISES THERAPEUT 01929 [facility] NIKKI IC 7 PHYSICIAN PROPHYLAC S GROUP TIC/DX INJECTION SUBQ/IM INJECTION J0696 [facility] NIKKI 7 PHYSICIAN CEFTRIAXO S GROUP NE SODIUM PER 250 MG GLUC BLD 88305 [facility] GLUC MNTR 7 [facility] DEV INC INC CLEARED FDA SPEC HOME USE CATH PLMT 39096 [facility] L HRT & 7 [facility] ARTS INC INC W/NJX & ANGIO IMG S&I GUIDE C1769 [facility] WIRE 7 [facility] INC INC CLOSURE C1760 [facility] DEVICE 7 [facility] VASCULAR INC INC ECG 69125 [facility] ROUTINE 7 [facility] ECG INC INC W/LEAST 12 LDS TRCG ONLY W/O I&R APPL 88059 [facility] MODALITY 7 [facility] 1/> AREAS INC INC TRACTION MECHANICA L THERAPEUT 15715 [facility] IC PX 1/> 7 [facility] INC INC EACH 15 MIN EXERCISES ECHO 23117 [facility] TTHRC R-T 7 [facility] 2D INC INC W/WOM-MOD E COMPL SPEC&COLR D THERAPEUT 90011 [facility] IC PX 1/> 7 [facility]AS INC INC EACH 15 MIN EXERCISES APPL 34127 [facility] MODALITY 7 [facility] 1/> AREAS INC INC TRACTION MECHANICA L APPL 59604 [facility] MODALITY 7 [facility] 1/> AREAS INC INC TRACTION MECHANICA L THERAPEUT 75823 [facility] IC PX 1/> 7 [facility] INC INC EACH 15 MIN EXERCISES APPL 69074 [facility] MODALITY 7 [facility] 1/> AREAS INC INC ULTRASOUN D EA 15 MIN BLOOD 05780 [facility] COUNT 7 [facility] COMPLETE INC INC AUTO&[place] [address] [facility] THYROXINE 7 [facility] [place] [address] [facility] THYROID 7 [facility] STIMULATI INC INC NG HORMONE TSH COLLECTIO 10690 [facility] N VENOUS 7 [facility] BLOOD INC INC VENIPUNCT URE ECG 50525 [facility] ROUTINE 7 [facility] ECG INC INC W/LEAST 12 LDS TRCG ONLY W/O I&R HEMOGLOBI 98064 [facility] N 7 [facility] GLYCOSYLA INC INC PORSCHE A1C NATRIURET 38321 [facility] IC 7 [facility] PEPTIDE INC INC COMPREHEN 26552 [facility] SIVE 7 [facility] METABOLIC INC INC PANEL APPL 96338 [facility] MODALITY 7 [facility] 1/> AREAS INC INC TRACTION MECHANICA L THERAPEUT 87544 [facility] IC PX 1/> 7 [facility] AREAS INC INC EACH 15 MIN EXERCISES APPL 40029 [facility] MODALITY 7 [facility] 1/> AREAS INC INC ULTRASOUN D EA 15 MIN APPL 20818 [facility] MODALITY 7 [facility] 1/> AREAS INC INC ULTRASOUN D EA 15 MIN THERAPEUT 35690 [facility] IC PX 1/> 7 [facility] AREAS INC INC EACH 15 MIN EXERCISES APPL 53226 [facility] MODALITY 7 [facility] 1/> AREAS INC INC TRACTION MECHANICA L APPL 29170 [facility] MODALITY 7 [facility] 1/> AREAS INC INC TRACTION MECHANICA L THERAPEUT 07221 [facility] IC PX 1/> 7 [facility] AREAS INC INC EACH 15 MIN EXERCISES APPL 18420 [facility] MODALITY 7 [facility] 1/> AREAS INC INC ULTRASOUN D EA 15 MIN APPL 05315 [facility] MODALITY 7 [facility] 1/> AREAS INC INC ULTRASOUN D EA 15 MIN APPL 07631 [facility] MODALITY 7 [facility] 1/> AREAS INC INC TRACTION MECHANICA L PHYSICAL 86678 [facility] THERAPY 7 [facility] EVALUATIO INC INC N MOD COMPLEX 30 MINS SHOULDER L3650 ADVANCED ADVANCED ORTHOSIS 6 TECHNOLOG TECHNOLOG FIG 8 IES INC IES INC ABDUCT RESTRAINE R PREFAB ECHO 35792 [place] JIMÉNEZ GILA TTHRC R-T 6 MEDICAL 2D SERV W/WOM-MOD FOUNDATIO E COMPL N SPEC&COLR D CATH 79036 [place] RONALDO PLACEMENT 6 MEDICAL & NJX SERV CORONARY FOUNDATIO ART ANGIO N IMG S&I ECG 54204 [facility] ROUTINE 6 [facility] ECG INC INC W/LEAST 12 LDS TRCG ONLY W/O I&R GROUND A0425 [facility] AMBULANCE PER SERVICE SERVICE STATUTE MILE INITIAL [address] [facility] [facility] 6 NURSE CARE/DAY PRACTITIO 50 NER GR MINUTES BLOOD 17761 R[facility] SOLANO COUNT 6 [facility] COMPLETE INC INC AUTO&AUTO DIFRNTL WBC THERAPEUT 78094 [facility] SOL[facility] IC 6 [facility] INJECTION INC INC IV PUSH EACH NEW DRUG CRITICAL 31531 [facility] CARE 6 PHYSICIAN SHERWIN ILL/INJUR [facility], [facility] ADDL 30 MIN THER 16367 RUSS SOLANO PROPH/DX 6 [facility] NJX IV INC INC PUSH SINGLE/1S T SBST/DRUG FIBRIN 38693 RUSS SOLANO DGRADJ 6 [facility] PRODUCTS INC INC D-DIMER QUAL/SEMI ROLANDO CRITICAL 12156 [facility] 6 PHYSICIAN SHERWIN ILL/INJUR [facility], [facility] PATIENT INIT 30-74 [place] [address] RUSS SOLANO TROPONIN 6 [facility] QUANTITAT INC INC SANIA ECG 67848 RUSS MIRELES JR ROUTINE 6 [facility] W/LEAST P 12 LDS I&R ONLY INJECTION J2405 [facility] SOLANO 6 [facility] ONDANSETR INC INC ON HCL PER [address] [facility] NON-TUNNE 6 PHYSICIAN SHERWIN LED S, [facility] CENTRAL VENOUS CATH AGE 5 YR/> CREATINE 73419 RUSS SOLANO KINASE 6 [facility] [place] [address] RUSS SOLANO LIPASE 6 [facility] INC INC AMB A0427 [facility] SERVICE 6 AMBULANCE AMBULANCE ALS SERVICE SERVICE EMERGENCY TRANSPORT LEVEL 1 RADIOLOGI 67084 [facility] C 6 MEDICAL EXAMINATI IMAGING ON CHEST ASS SINGLE VIEW FRONTAL CREATINE 62769 [facility] SOLANO KINASE MB 6 [facility] FRACTION INC INC ONLY COMPREHEN 67175 [facility] SOLAN[facility] SIVE 6 [facility] METABOLIC INC INC PANEL DUP-SCAN 36363 [place] [facility] ALL XTR VEINS 6 MEDICAL IMAGING [place] ASS L/LIMITED STUDY COLLECTIO 42107 [facility] N VENOUS 5 [facility] BLOOD URGENT VENIPUNCT TREAT URE BLOOD 36980 [facility] OCCULT 5 REPLACED BY [facility] NAN PEROXIDAS URGENT E ACTV TREAT QUAL FECES 1 DETER LIPID 18549 [facility] PANEL 5 [facility] INC INC COMPREHEN 03396 [facility] SIVE 5 [facility] METABOLIC INC INC PANEL 25 34094 [facility] SOLANO HYDROXY 5 [facility] INCLUDES INC INC FRACTIONS IF PERFORMED BLOOD 04054 [facility] COUNT 5 [facility] COMPLETE INC INC AUTO&AUTO DIFRNTL WBC PROSTATE G0103 [facility] SOLANO CANCER 5 [facility] SCREENING INC INC ; PSA TEST COLLECTIO 71955 [facility] NIKKI N VENOUS 5 PHYSICIAN MARIBELL B[place] [address] [facility] SOLANO FREE 5 [facility] [place] [address] RUSS SOLANO THYROID 5 [facility] STIMULATI INC INC NG HORMONE TSH DUP-SCAN 50880 [place] RUBY XTR VEINS 5 MEDICAL KEVIN IMAGING [place]A ASS L/LIMITED STUDY COLLECTIO 08303 [facility] SOLANO N VENOUS 5 [facility] BLOOD INC INC VENIPUNCT URE BLOOD 46382 [facility] COUNT 5 [facility] COMPLETE INC INC AUTO&AUTO DIFRNTL WBC PROTHROMB 38304 [facility] SOLANO IN TIME 5 [facility] INC INC SEDIMENTA 07008 R[facility] SOLANO TION RATE 5 [facility] RBC INC INC NON-AUTOM ATED THERAPEUT 28172 RUSSMILES SOLANO IC 5 [facility] PROPHYLAC INC INC TIC/DX INJECTION SUBQ/IM FIBRIN 22615 RUSSMILES SOLANO DGRADJ 5 [facility] PRODUCTS INC INC D-DIMER QUAL/SEMI ROLANDO THROMBOPL 54056 RUSS RUSS ASTIN 5 [facility] TIME INC INC PARTIAL PLASMA/WH OLE BLOOD COMPREHEN 79450 R[facility] SOLANO SIVE 5 [facility] METABOLIC INC INC PANEL COMPREHEN 02084 [facility] SOLANO SIVE 4 [facility] METABOLIC INC INC PANEL CULTURE 10531 [facility] BACTERIAL 4 [facility] BLOOD [place] W/[place] [address] R[facility] SOLANO INFUSION 4 [facility] THERAPY/P INC INC ROPHYLAXI S /DX 1ST TO 1 HR THERAPEUT 09123 [facility] RUSS IC 4 [facility] INJECTION INC INC IV PUSH EACH NEW DRUG BLOOD 66695 [facility] COUNT 4 [facility] COMPLETE INC INC AUTO&AUTO DIFRNTL WBC IM ADM 18805 [facility] SOLAN[facility] PRQ ID 4 [facility] SUBQ/IM INC INC NJXS 1 VACCINE TDAP 48097 [facility] SOL[facility] VACCINE 7 4 [facility] YRS/> IM INC INC RADEX 18421 RUSS RUSS FOREARM 2 4 [facility] VIEWS INC INC LARYNGOSC 92562 [place] OPY 4 MEDICAL ALEJANDRE FLEXIBLE SERV DIAGNOSTI FOUNDATIO C N ECG 82190 GABRIELE JORDAN ROUTINE 4 [facility] MARIBELL ECG EMERGENCY W/LEAST PHYS 12 LDS I&R ONLY RADIOLOGI 45474 [place] C EXAM 4 MEDICAL EVELINE CHEST 2 IMAGING VIEWS ASS FRONTAL&L ATERAL RADEX 20992 [place] HAND 4 MEDICAL JACKLYN MINIMUM 3 SERV VIEWS FOUNDATIO Encounters Encounter Start End Date Code Location Performer Type Date OFFICE 53975 [facility] NIKKI DALY 7 7 PHYSICIAN T VISIT S GROUP 15 MINUTES [facility]OSPITAL R[facility] - 7 7 [facility] - 7 7 [facility] INPATIENT INC EMERGENCY 71360 TONE JORDAN DEPT 7 7 PHYSICIAN VISIT S, PLLC HIGH SEVERITY& THREAT FUNJ OFFICE 86982 [facility] NIKKI DALY 7 7 PHYSICIAN T VISIT S GROUP 25 MINUTES HOSPITAL RUSS - 7 7 [facility] R[facility] - 7 7 [facility] T [facility] RUSS - 7 7 [facility] T [facility] R[facility] - 7 7 [facility] OUTPATIEN INC T OFFICE 13243 [facility] NIKKI OUTPATIEN 7 7 PHYSICIAN T VISIT S GROUP 25 MINUTES HOSPITAL [facility] - 7 7 [facility]PATIEN INC [facility] - 7 7 [facility]PATIEN INC T OFFICE 20242 [facility] T VISIT SOLUTIONS 25 IN MINUTES OFFICE 77588 [facility] T VISIT SOLUTIONS 15 IN MINUTES OFFICE 00578 [facility] 7 [facility] T VISIT SOLUTIONS 25 IN MINUTES OFFICE 12429 [facility] 6 6 HEALTH T VISIT SOLUTIONS 15 IN MINUTES OFFICE 68802 [facility] 6 HEALTH T VISIT SOLUTIONS 15 IN MINUTES OFFICE 13262 CLARISSA ALCARAZ OUTPATIEN 6 6 MEDICAL T VISIT SERV 15 FOUNDATIO MINUTES [facility] RUSS - 6 6 [facility] OUTPATIEN INC T EMERGENCY 72177 CLARISSA RIZO 6 6 MEDICAL ADRIEN DEPARTMEN SERV T VISIT FOUNDATIO HIGH/URGE N NT SEVERITY EMERGENCY 56305 [facility] DEPT 6 6 [facility] VISIT INC HIGH SEVERITY& THREAT FUNCJ OFFICE 53174 [facility] OUT[facility]IEN 6 6 [facility] T VISIT URGENT 15 TREAT MINUTES HOSPITAL RUSS - 6 6 [facility] OUTPATIEN INC T OFFICE 39968 [facility] 6 6 [facility] T VISIT URGENT 25 TREAT MINUTES HOSPITAL RUSS - 5 5 [facility] OUTPATIEN INC T OFFICE 33507 [place] [place] OUTPATIEN 5 5 [facility] T VISIT URGENT 25 TREAT MINUTES HOSPITAL RUSS - 5 5 [facility] OUTPATIEN INC T OFFICE 67815 [facility] NIKKI OUTPATIEN 5 5 PHYSICIAN MARIBELL T VISIT S GROUP 25 MINUTES OFFICE 17806 [facility] NIKKI OUTPATIEN 5 5 PHYSICIAN MARIBELL T VISIT S GROUP 15 MINUTES HOSPITAL RUSS - 5 5 [facility] OUTPATIEN INC T EMERGENCY 38011 RUSS 5 5 [facility] T VISIT LOW/MODER SEVERITY HOSPITAL RUSS - 5 5 [facility]PATIEN [facility] T EMERGENCY 66003 RUSS JORDAN 5 5 [facility] T VISIT P MODERATE SEVERITY EMERGENCY 18970 RUSS JORDAN 4 4 [facility] T VISIT P MODERATE SEVERITY HOSPITAL RUSS - 4 4 [facility] OUTPATIEN [facility] T OFFICE 44963 CLARISSA MONTERO OUTPATIEN 4 4 KAYLEN ESPITIA 45 SERV MINUTES FOUNDATIO N EMERGENCY 96113 [facility] DEPT 4 4 MACY MARIBELL VISIT EMERGENCY HIGH PHYS SEVERITY& THREAT FUN OFFICE 17604 GIRMA RAYO OUTPATIEN 4 4 SHERWIN VANESSA 30 MINUTES
--- OUTSIDE RECORDS SUMMARY | 2017-06-21 19:41 | External Medical Summary Rpt ---
Demographics Preferred Language Citizen Of [place] Marital Status Unknown Confucianism Affiliation Unknown Race Unknown Ethnic Group Unknown Author Author MECHE Address Unknown Phone Immunization No patient found.
--- OUTSIDE RECORDS SUMMARY | 2017-06-21 19:41 | External Medical Summary Rpt ---
Demographics Preferred Language [place] Marital Status Unknown Jehovah'S Witness Affiliation Unknown Race Unknown Ethnic Group Unknown Author Author MECHE Address Unknown Phone Immunization No patient found.
--- OUTSIDE RECORDS SUMMARY | 2017-06-21 19:42 | External Medical Summary Rpt ---
Author Author [employer] Magdaleno, [employer] Organization [employer] Address Unknown Phone Unavailable Results Glucose [Mass/volume] in Capillary blood by Glucometer Observa Value Referen Units Interpr Notes Date tion ce etation Range Glucose 70 - 110 mg/dl High No Jun 02 [Mass/vol alert informati 2016 4:25 ume] in on in PM Capillary source blood by data Glucomete r Urinalysis dipstick W Reflex Microscopic panel in Urine Observa Value Referen Units Interpr Notes Date tion ce etation Range Appeara CLEAR CLEAR No No No Jun 02 nce of informa informa informa 2016 Urine tion in tion in tion in 3:45 PM source source source data data data Bacteri TRACE O No No No Jun 02 a informa informa informa 2016 [Presen tion in tion in tion in 3:45 PM ce] in source source source Urine data data data sedimen t by Light microsc opy Bilirub NEGATIV NEG No No No Jun 02 in E informa informa informa 2016 [Presen tion in tion in tion in 3:45 PM ce] in source source source Urine data data data by Test strip Erythro NEGATIV NEG No No No Jun 02 cytes E informa informa informa 2016 [Presen tion in tion in tion in 3:45 PM ce] in source source source Urine data data data Color YELLOW YELLOW No No No Jun 02 of informa informa informa 2016 Urine tion in tion in tion in 3:45 PM source source source data data data Glucose NEG No High No Jun 02 [Mass/vol informati informati 2016 3:45 ume] in on in on in PM Urine by source source Test data data strip Ketones NEGATIV NEG mg/dL No No Jun 02 E informa informa 2016 [Presen tion in tion in 3:45 PM ce] in source source Urine data data by Automat ed test strip Mucus NEGATIV NEG No No No Jun 02 [Presen E informa informa informa 2016 ce] in tion in tion in tion in 3:45 PM Urine source source source sedimen data data data t by Light microsc opy Nitrite NEGATIV NEG No No No Jun 02 E informa informa informa 2016 [Presen tion in tion in tion in 3:45 PM ce] in source source source Urine data data data by Test strip pH of 5.0 - 8.5 No Normal No Jun 02 Urine informati informati 2016 3:45 on in on in PM source source data data Protein NEG mg/dL No No Jun 02 [Mass/vol informati informati 2016 3:45 ume] in on in on in PM Urine by source source Automated data data test strip Erythro OCC 0 rbc/hpf No No Jun 02 cytes informa informa 2016 [Presen tion in tion in 3:45 PM ce] in source source Urine data data sedimen t by Light microsc opy Specific 1.005 - No Normal No Jun 02 gravity 1.030 informati informati 2016 3:45 of Urine on in on in PM source source data data Epithel NONE OCC #/hpf No No Jun 02 ial informa informa 2017 cells.s tion in tion in 3:45 PM quamous source source data data [Presen ce] in Urine sedimen t by Microsc opy high power field Urobili 0.2 NEG E.U./dL No No Jun 02 nogen informa informa 2016 [Presen tion in tion in 3:45 PM ce] in source source Urine data data by Test strip Leukocy [3 O wbc/hpf No No Jun 02 isma wbc/hpf informa informa 2016 [#/volu ; 5 tion in tion in 3:45 PM me] in wbc/hpf source source Urine ] data data Urinalysis dipstick W Reflex Microscopic panel in Urine Observa Value Referen Units Interpr Notes Date tion ce etation Range Appeara CLEAR CLEAR No No No Jun 02 nce of informa informa informa 2017 Urine tion in tion in tion in 3:45 PM source source source data data data Bilirub NEGATIV NEG No No No Jun 02 in E informa informa informa 2016 [Presen tion in tion in tion in 3:45 PM ce] in source source source Urine data data data by Test strip Erythro NEGATIV NEG No No No Jun 02 cytes E informa informa informa 2016 [Presen tion in tion in tion in 3:45 PM ce] in source source source Urine data data data Color YELLOW YELLOW No No No Jun 02 of informa informa informa 2016 Urine tion in tion in tion in 3:45 PM source source source data data data Glucose NEG No High No Jun 02 [Mass/vol informati informati 2016 3:45 ume] in on in on in PM Urine by source source Test data data strip Ketones NEGATIV NEG mg/dL No No Jun 02 E informa informa 2016 [Presen tion in tion in 3:45 PM ce] in source source Urine data data by Automat ed test strip Mucus NEGATIV NEG No No No Jun 02 [Presen E informa informa informa 2016 ce] in tion in tion in tion in 3:45 PM Urine source source source sedimen data data data t by Light microsc opy Nitrite NEGATIV NEG No No No Jun 02 E informa informa informa 2016 [Presen tion in tion in tion in 3:45 PM ce] in source source source Urine data data data by Test strip pH of 5.0 - 8.5 No Normal No Jun 02 Urine informati informati 2016 3:45 on in on in PM source source data data Protein NEG mg/dL No No Jun 02 [Mass/vol informati informati 2016 3:45 ume] in on in on in PM Urine by source source Automated data data test strip Specific 1.005 - No Normal No Jun 02 gravity 1.030 informati informati 2016 3:45 of Urine on in on in PM source source data data Urobili 0.2 NEG E.U./dL No No Jun 02 nogen informa informa 2016 [Presen tion in tion in 3:45 PM ce] in source source Urine data data by Test strip Acetone [Mass/volume] in Serum or Plasma Observa Value Referen Units Interpr Notes Date tion ce etation Range Acetone NOT No No No Jun 02 [Mass/vol DETECTD informati informati informati 2016 3:15 ume] in on in on in on in PM Serum or source source source Plasma data data data CBC W Auto Differential panel in Blood Observa Value Referen Units Interpr Notes Date tion ce etation Range Basophils 0 - 0.2 K/MM3 Normal No Jun 02 inform2016 3:15 [#/volume on in PM ] in source Blood by data Automated count Basophils 0.1 - 2.0 % Normal No Jun 02 informati 2016 3:15 leukocyte on in PM s in source Blood by data Automated count Eosinophi 0.0 - 0.4 K/mm3 Normal No Jun 02 ls informati 2016 3:15 [#/volume on in PM ] in source Blood by data Automated count Eosinophi 0.1 - % Normal No Jun 02 ls/100 12.0 informati 2016 3:15 leukocyte on in PM s in source Blood by data Automated count Granulocy 1.3 - 8.0 K/mm3 Normal No Jun 02 isma informati 2016 3:15 [#/volume on in PM ] in source Blood by data Automated count Granulocy 37.0 - % Normal No Jun 02 isma/100 80.0 informati 2016 3:15 leukocyte on in PM s in source Blood by data Automated count Hematocri 42.0 - % Normal No Jun 02 t [Volume 52.0 informati 2016 3:15 on in PM Fraction] source of Blood data Hemoglobi 14.1 - g/dL Normal No Jun 02 n 18.0 informati 2016 3:15 [Mass/vol on in PM ume] in source Blood data Lymphocyt 0.7 - 4.5 K/mm3 Normal No Jun 02 es informati 2016 3:15 [#/volume on in PM ] in source Unspecifi data ed specimen by Automated count Lymphocyt 10 - 50 % Normal No Jun 02 es informati 2016 3:15 [#/volume on in PM ] in source Unspecifi data ed specimen by Automated count Erythrocy 27 - 31.2 pg Normal No Jun 02 te mean informati 2016 3:15 corpuscul on in PM ar source hemoglobi data n [Entitic mass] Erythrocy 31.8 - g/dl Normal No Jun 02 te mean 35.4 informati 2016 3:15 corpuscul on in PM ar source hemoglobi data n concentra tion [Mass/vol ume] by Automated count Erythrocy 82.2 - fl Normal No Jun 02 te mean 97.8 informati 2017 3:15 corpuscul on in PM ar volume source [Entitic data volume] by Automated count Monocytes 0.1 - 1.0 K/mm3 Normal No Jun 02 informati 2016 3:15 [#/volume on in PM ] in source Blood by data Automated count Monocytes 1.7 - 9.3 % Normal No Jun 02 /100 informati 2016 3:15 leukocyte on in PM s in source Blood by data Automated count Platelet 7.4 - fl Normal No Jun 02 mean 10.4 informati 2016 3:15 volume on in PM [Entitic source volume] data in Blood by Automated count Platelets 142 - 424 K/mm3 Normal No Jun 02 informati 2016 3:15 [#/volume on in PM ] in source Blood data Erythrocy 4.6 - 6.2 M/mm3 Normal No Jun 02 isma informati 2016 3:15 [#/volume on in PM ] in source Amniotic data fluid Erythrocy 11.5 - % Normal No Jun 02 te 17.5 informati 2016 3:15 distribut on in PM ion width source [Entitic data volume] by Automated count Leukocyte 4.8 - K/MM3 Normal No Jun 02 s 10.8 informati 2016 3:15 [#/volume on in PM ] in source Blood data Glucose [Mass/volume] in Capillary blood by Glucometer Observa Value Referen Units Interpr Notes Date ti etation Range Glucose 70 - 110 mg/dl High No Jun 02 [Mass/vol alert informati 2017 2:17 ume] in on in PM Capillary source blood by data Glucomete r Glucose [Mass/volume] in Capillary blood by Glucometer Observa Value Referen Units Interpr Notes Date ti ce etation Range Glucose 70 - 110 mg/dl High No April 02 [Mass/vol informati 2017 ume] in on in 11:26 AM Capillary source blood by data Glucomete r Glucose [Mass/volume] in Capillary blood by Glucometer Observa Value Referen Units Interpr Notes Date ti ce etation Range Glucose 70 - 110 mg/dl High No April 02 [Mass/vol informati 2016 6:15 ume] in on in AM Capillary source blood by data Glucomete r Glucose [Mass/volume] in Capillary blood by Glucometer Observa Value Referen Units Interpr Notes Date ti ce etation Range Glucose 70 - 110 mg/dl High No April 01 [Mass/vol informati 2017 8:39 ume] in on in PM Capillary source blood by data Glucomete r Glucose [Mass/volume] in Capillary blood by Glucometer Observa Value Referen Units Interpr Notes Date tion ce etation Range Glucose 70 - 110 mg/dl High No April 01 [Mass/vol informati 2016 4:20 ume] in on in PM Capillary source blood by data Glucomete r Glucose [Mass/volume] in Capillary blood by Glucometer Observa Value Referen Units Interpr Notes Date tion ce etation Range Glucose 70 - 110 mg/dl High No April 01 [Mass/vol informati 2016 ume] in on in 11:06 AM Capillary source blood by data Glucomete r Basic metabolic panel in Blood Observa Value Referen Units Interpr Notes Date ti ce etation Range Urea 7 - 18 mg/dL Normal No April 01 nitrogen informati 2016 [Mass/vol on in 10:20 AM ume] in source Serum or data Plasma Calcium 8.5 - mg/dL Normal No April 01 [Mass/vol 10.1 informati 2016 ume] in on in 10:20 AM Serum or source Plasma data Chloride 98 - 107 mmoL/L Normal No April 01 [Moles/vo informati 2016 lume] in on in 10:20 AM Serum or source Plasma data Carbon 21.0 - mmoL/L Normal No April 01 dioxide, 32.0 informati 2016 total on in 10:20 AM [Moles/vo source lume] in data Serum or Plasma Creatinin 0.70 - mg/dL Normal No April 01 e 1.30 informati 2016 [Mass/vol on in 10:20 AM ume] in source Serum or data Plasma Creatinin 50 - 200 ML/MIN Normal No April 01 e renal informati 2017 clearance on in 10:20 AM source predicted data by Cockcroft -Gault formula Estimated >60 ML/MIN No REFERENCE April 01 informati RANGE: 2017 glomerula on in >60 10:20 AM r source ML/MIN/1. filtratio data 73 SQUARE n rate METERSIf (GF this patient is -A merican, then multiply theresult by 1.210. Glucose 74 - 106 mg/dL High No April 01 [Mass/vol informati 2016 ume] in on in 10:20 AM Serum or source Plasma data Potassium 3.5 - 5.1 mmoL/L Normal No April [id number] [Moles/vo on in 10:20 AM lume] in source Serum or data Plasma Sodium 136 - 145 mmoL/L Low No April 01 [Moles/vo inform2016 lume] in on in 10:20 AM Serum or source Plasma data CBC W Auto Differential panel in Blood Observa Value Referen Units Interpr Notes Date tion ce etation Range Basophils 0 - 0.2 K/MM3 Normal No April 01 inform2016 [#/volume on in 10:20 AM ] in source Blood by data Automated count Basophils 0.1 - 2.0 % Normal No April 01 / inform2016 leukocyte on in 10:20 AM s in source Blood by data Automated count Eosinophi 0.0 - 0.4 K/mm3 Normal No April 01 ls inform2016 [#/volume on in 10:20 AM ] in source Blood by data Automated count Eosinophi 0.1 - % Normal No April 01 ls/100 12.0 inform2016 leukocyte on in 10:20 AM s in source Blood by data Automated count Granulocy 1.3 - 8.0 K/mm3 Normal No April 01 isma 2016 [#/volume on in 10:20 AM ] in source Blood by data Automated count Granulocy 37.0 - % Normal No April 01 isma/100 80.0 2016 leukocyte on in 10:20 AM s in source Blood by data Automated count Hematocri 42.0 - % Normal No April 01 t [Volume 52.0 2016 on in 10:20 AM Fraction] source of Blood data Hemoglobi 14.1 - g/dL Normal No April 01 n 18.0 inform2016 [Mass/vol on in 10:20 AM ume] in source Blood data Lymphocyt 0.7 - 4.5 K/mm3 Normal No April 01 es inform2016 [#/volume on in 10:20 AM ] in source Unspecifi data ed specimen by Automated count Lymphocyt 10 - 50 % Normal No April 01 es inform2016 [#/volume on in 10:20 AM ] in source Unspecifi data ed specimen by Automated count Erythrocy 27 - 31.2 pg Normal No April 01 te mean informati 2017 corpuscul on in 10:20 AM ar source hemoglobi data n [Entitic mass] Erythrocy 31.8 - g/dl Normal No April 01 te mean 35.4 2016 corpuscul on in 10:20 AM ar source hemoglobi data n concentra tion [Mass/vol ume] by Automated count Erythrocy 82.2 - fl Normal No April 01 te mean 97.8 2016 corpuscul on in 10:20 AM ar volume source [Entitic data volume] by Automated count Monocytes 0.1 - 1.0 K/mm3 Normal No April 01 inform2016 [#/volume on in 10:20 AM ] in source Blood by data Automated count Monocytes 1.7 - 9.3 % Normal No April 012016 leukocyte on in 10:20 AM s in source Blood by data Automated count Platelet 7.4 - fl Normal No April 01 mean 10.4 inform2016 volume on in 10:20 AM [Entitic source volume] data in Blood by Automated count Platelets 142 - 424 K/mm3 Normal No April 01 inform2016 [#/volume on in 10:20 AM ] in source Blood data Erythrocy 4.6 - 6.2 M/mm3 Normal No April 01 isma inform2016 [#/volume on in 10:20 AM ] in source Amniotic data fluid Erythrocy 11.5 - % Normal No April 01 te 17.5 2016 distribut on in 10:20 AM ion width source [Entitic data volume] by Automated count Leukocyte 4.8 - K/MM3 Normal No April 01 s 10.8 inform2016 [#/volume on in 10:20 AM ] in source Blood data Crystals [type] in Body fluid by Light microscopy Observa Value Referen Units Interpr Notes Date tion ce etation Range NO CRYSTALS SEEN UNDER NORMAL OR POLARIZED LIGHT PERFORMED BY [facility], [place], [place]. NO CRYSTALS SEEN UNDER NORMAL OR POLARIZED LIGHT PERFORMED BY [employer], [place], [place]. Cell count & Differential panel in Body fluid Observa Value Referen Units Interpr Notes Date tion ce etation Range Monocytes No % No 2% April 01 informati informati LYMPHOCYT 2016 8:30 [#/volume on in on in ES, 4% AM ] in Body source source MACROPHAG fluid data data [facility] BY [facility], [place], [place]. Neutrophi No % No No April 01 ls.segmen informati informati informati 2017 8:30 manuela/100 on in on in on in AM leukocyte source source source s in Body data data data fluid by Manual count Erythrocy No /mm3 No No April 01 isma informati informati informati 2016 8:30 [#/volume on in on in on in AM ] in Body source source source fluid data data data Specime SYNOVIA No No No No April 01 n L informa informa informa informa 2016 source tion in tion in tion in tion in 8:30 AM [Identi source source source source fier] data data data data of Body fluid Leukocyte No MM No No April 01 s informati informati informati 2016 8:30 [#/volume on in on in on in AM ] in Body source source source fluid data data data Glucose [Mass/volume] in Capillary blood by Glucometer Observa Value Referen Units Interpr Notes Date ce etation Range Glucose 70 - 110 mg/dl No No April 01 [Mass/vol ati inform2016 6:35 ume] in on in on in AM Capillary source source blood by data data Glucomete r CBC W Auto Differential panel in Blood Observa Value Referen Units Interpr Notes Date ce etation Range Basophils 0 - 0.2 K/MM3 Normal No March 312016 [#/volume on in 10:25 PM ] in source Blood by data Automated count Basophils 0.1 - 2.0 % Normal No March 312016 leukocyte on in 10:25 PM s in source Blood by data Automated count Eosinophi 0.0 - 0.4 K/mm3 Normal No March 31 ls 2016 [#/volume on in 10:25 PM ] in source Blood by data Automated count Eosinophi 0.1 - % Normal No March 31 ls/100 12.0 2016 leukocyte on in 10:25 PM s in source Blood by data Automated count Granulocy 1.3 - 8.0 K/mm3 Normal No March 31 isma 2016 [#/volume on in 10:25 PM ] in source Blood by data Automated count Granulocy 37.0 - % Normal No March 31 isma/100 80.0 2016 leukocyte on in 10:25 PM s in source Blood by data Automated count Hematocri 42.0 - % Normal No March 31 t [Volume 52.0 2016 on in 10:25 PM Fraction] source of Blood data Hemoglobi 14.1 - g/dL Normal No March 31 n 18.0 2016 [Mass/vol on in 10:25 PM ume] in source Blood data Lymphocyt 0.7 - 4.5 K/mm3 Normal No March 31 es 2016 [#/volume on in 10:25 PM ] in source Unspecifi data ed specimen by Automated count Lymphocyt 10 - 50 % Normal No March 31 es 2016 [#/volume on in 10:25 PM ] in source Unspecifi data ed specimen by Automated count Erythrocy 27 - 31.2 pg High No March 31 te mean 2016 corpuscul on in 10:25 PM ar source hemoglobi data n [Entitic mass] Erythrocy 31.8 - g/dl Normal No March 31 te mean 35.4 2016 corpuscul on in 10:25 PM ar source hemoglobi data n concentra tion [Mass/vol ume] by Automated count Erythrocy 82.2 - fl Normal No March 31 te mean 97.8 2016 corpuscul on in 10:25 PM ar volume source [Entitic data volume] by Automated count Monocytes 0.1 - 1.0 K/mm3 Normal No March 312016 [#/volume on in 10:25 PM ] in source Blood by data Automated count Monocytes 1.7 - 9.3 % Normal No March 31 /100 2016 leukocyte on in 10:25 PM s in source Blood by data Automated count Platelet 7.4 - fl Normal No March 31 mean 10.4 2016 volume on in 10:25 PM [Entitic source volume] data in Blood by Automated count Platelets 142 - 424 K/mm3 Normal No March 312016 [#/volume on in 10:25 PM ] in source Blood data Erythrocy 4.6 - 6.2 M/mm3 Normal No March 31 isma 2016 [#/volume on in 10:25 PM ] in source Amniotic data fluid Erythrocy 11.5 - % Normal No March 31 te 17.5 2016 distribut on in 10:25 PM ion width source [Entitic data volume] by Automated count Leukocyte 4.8 - K/MM3 Normal No March 31 s 10.8 2016 [#/volume on in 10:25 PM ] in source Blood data Erythrocyte sedimentation rate by Westergren method Observa Value Referen Units Interpr Notes Date tion ce etation Range Erythrocy 0 - 20 mm/hr High No March 31 te inform2016 sedimenta on in 10:25 PM tion rate source by data Westergre n method Lactate [Moles/volume] in Blood Observa Value Referen Units Interpr Notes Date tion ce etation Range Lactate 0.4 - 2.0 mmol/L Normal No March 31 [Moles/vo informati 2016 lume] in on in 10:25 PM Blood source data Comprehensive metabolic 2000 panel in Serum or Plasma Observa Value Referen Units Interpr Notes Date tion ce etation Range Albumin/G 1.1 - 1.8 No Low No March 31 lobulin informati informati 2016 [Mass on in on in 10:25 PM ratio] in source source Serum or data data Plasma Albumin 3.4 - 5.0 gm/dL Low No March 31 [Mass/vol informati 2016 ume] in on in 10:25 PM Serum or source Plasma data Alkaline 46 - 116 U/L Normal No March 31 phosphata informati 2016 se on in 10:25 PM [Enzymati source c data activity/ volume] in Serum or Plasma Bilirubin 0.2 - 1.0 mg/dL Normal No March 31 .total informati 2016 [Mass/vol on in 10:25 PM ume] in source Serum or data Plasma Urea 7 - 18 mg/dL Normal No March 31 nitrogen informati 2016 [Mass/vol on in 10:25 PM ume] in source Serum or data Plasma Calcium 8.5 - mg/dL Normal No March 31 [Mass/vol 10.1 informati 2016 ume] in on in 10:25 PM Serum or source Plasma data Chloride 98 - 107 mmoL/L Normal No March 31 [Moles/vo informati 2016 lume] in on in 10:25 PM Serum or source Plasma data Carbon 21.0 - mmoL/L Normal No March 31 dioxide, 32.0 informati 2016 total on in 10:25 PM [Moles/vo source lume] in data Serum or Plasma Creatinin 0.70 - mg/dL Normal No March 31 e 1.30 informati 2016 [Mass/vol on in 10:25 PM ume] in source Serum or data Plasma Creatinin 50 - 200 ML/MIN Normal No March 31 e renal informati 2016 clearance on in 10:25 PM source predicted data by Cockcroft -Gault formula Estimated >60 ML/MIN No REFERENCE March 31 informati RANGE: 2017 glomerula on in >60 10:25 PM r source ML/MIN/1. filtratio data 73 SQUARE n rate METERSIf (GF this patient is -A merican, then multiply theresult by 1.210. Globulin 1.3 - 3.2 gm/dL High No March 31 [Mass/vol informati 2016 ume] in on in 10:25 PM Serum source data Glucose 74 - 106 mg/dL High No March 31 [Mass/vol informati 2016 ume] in on in 10:25 PM Serum or source Plasma data Potassium 3.5 - 5.1 mmoL/L Normal No March 31 inform2016 [Moles/vo on in 10:25 PM lume] in source Serum or data Plasma Sodium 136 - 145 mmoL/L Low No March 31 [Moles/vo informati 2016 lume] in on in 10:25 PM Serum or source Plasma data Aspartate 15 - 37 U/L Normal No March [id number] aminotran on in 10:25 PM sferase source [Enzymati data c activity/ volume] in Serum or Plasma Alanine 12 - 78 U/L Normal No March 31 aminotran 2016 sferase on in 10:25 PM [Enzymati source c data activity/ volume] in Serum or Plasma Protein 6.4 - 8.2 gm/dL Normal No March 31 [Mass/vol informati 2016 ume] in on in 10:25 PM Serum or source Plasma data CRP Observa Value Referen Units Interpr Notes Date tion ce etation Range CRP 0.0 - 0.9 MG/DL Normal No March 31 inform2016 on in 10:25 PM source data
--- OUTSIDE RECORDS SUMMARY | 2017-06-21 19:42 | External Medical Summary Rpt ---
[...] UNDER NORMAL OR POLARIZED LIGHT PERFORMED BY [facility], [place], [place]. NO CRYSTALS SEEN UNDER NORMAL OR POLARIZED LIGHT PERFORMED BY [employer], [place], [place]. Cell count & Differential panel in Body fluid Observa Value Referen Units Interpr Notes Date tion ce etation Range Monocytes No % No 2% April 01 informati informati LYMPHOCYT 2016 8:30 [#/volume on in on in ES, 4% AM ] in Body source source MACROPHAG fluid data data [facility] ED BY [facility], [place], [place]. Neutrophi No % No No April [...]
== END 2017-06-20 18:26 | disposition home or self-care (01) ==
LOC: ER 18:02
DX: L03.116 Cellulitis of left lower limb (principal); E11.9 Type 2 diabetes mellitus without complications; Z79.4 Long term (current) use of insulin; I10 Essential (primary) hypertension; Z72.0 Tobacco use

== ENCOUNTER → 2017-08-13 | Outpatient (CLI) | payer MEDICAID ==
[2017-08-13 19:31] LABS: BUN 14 mg/dL (7-18)
[2017-08-13 19:33] LABS: GFR (ESTIMATED) 118 ML/MIN (>60)
== END ==
LOC: LAB 15:20
PROVIDERS: Emergency Medicine
DX: N39.0 Urinary tract infection, site not specified (principal); R31.9 Hematuria, unspecified; E11.9 Type 2 diabetes mellitus without complications